=== PATIENT | male | born 1945 | race Caucasian/White ===

== ENCOUNTER 2019-06-27 13:50 | Observation (INO) | payer MEDICARE ==
[2019-06-27] MEDS ORDERED: SODIUM CHLORIDE 0.9% 500 ML 500 ML IV STA (14:18)
--- NOTE | 2019-06-27 14:29 | ED ---
General Adult HPI - General Chief complaint: Syncope Stated complaint: Weakness/sleepy Time Seen by Provider: 06/27/19 13:55 Source: patient, EMS, RN notes reviewed Mode of arrival: EMS Limitations: no limitations - History of Present Illness Initial comments: This is a 73-year-old male who presents emergency department today with his he has diabetes and high blood pressure. Patient also has a history of bradycardia and hypotension according to the . states he has not yet eaten today and it is 2:00 when the symptoms occurred. Patient became unresponsive while sitting and she called EMS. According to he never became alert and oriented prior to the private branch exchange service adviser taking him to the hospital. Currently she states that he is acting normal at his baseline. Patient states prior to passing out he did feel lightheaded but had no pain or difficulty breathing. Patient currently denies any symptoms whatsoever. He states he has not had any recent episodes of vomiting or diarrhea. He has not had any recent fever or any episodes of chest pain or difficulty breathing. - Related Data Home Medications Medication Instructions Recorded Confirmed Aspirin 325 mg PO DAILY 04/19/18 06/27/19 Atorvastatin [Lipitor] 40 mg PO HS 04/19/18 06/27/19 Carbidopa-Levodopa 25-100 mg 3 tab PO QID 04/19/18 06/27/19 [Sinemet 25-100] Celecoxib [CeleBREX] 200 mg PO BID 04/19/18 06/27/19 Cholecalciferol [Vitamin D3] 1,000 unit PO HS 04/19/18 06/27/19 DULoxetine HCL [Cymbalta] 30 mg PO HS 04/19/18 06/27/19 DULoxetine HCL [Cymbalta] 60 mg PO DAILY 04/19/18 06/27/19 Donepezil [Aricept] 5 mg PO HS 04/19/18 06/27/19 Glucosamine Hcl 1,500 mg PO HS 04/19/18 06/27/19 Levothyroxine Sodium 25 mcg PO DAILY 04/19/18 06/27/19 Lutein 20 mg PO DAILY 04/19/18 06/27/19 Midodrine HCl [ProAmatine] 5 mg PO DAILY 04/19/18 06/27/19 QUEtiapine [SEROquel] 25 mg PO HS 06/08/18 08/16/19 Ubidecarenone [Co Q-10] 100 mg PO DAILY 04/19/18 06/27/19 buPROPion [Wellbutrin] 37.5 mg PO DAILY 04/19/18 06/27/19 metFORMIN HCL [Glucophage] 500 mg PO BID 04/19/18 06/27/19 Amantadine HCl [Symmetrel] 100 mg PO TID 06/27/19 06/27/19 Allergies Allergy/AdvReac Type Severity Reaction Status Date / Time No Known Allergies Allergy Verified 06/27/19 14:56 Review of Systems ROS Statement: Those systems with pertinent positive or pertinent negative responses have been documented in the HPI. ROS Other: All systems not noted in ROS Statement are negative. Past Medical History Past Medical History: Diabetes Mellitus, Hyperlipidemia, Thyroid Disorder Additional Past Medical History / Comment(s): Lewie Body. Tardive dyskenesia History of Any Multi-Drug Resistant Organisms: None Reported Past Surgical History: Adenoidectomy, Appendectomy, Cholecystectomy, Coronary Bypass/CABG, Heart Catheterization, Orthopedic Surgery, Tonsillectomy Additional Past Surgical History / Comment(s): Triple bypass - 2010 Bilateral cataract surgery. Bilateral total knee replacement; Bilateral Ankle surgery. Thyroidectomy. Numerous sinus surgeries. Cervical fusion; Thoracic fusion; Lumbar laminectomy Past Psychological History: Anxiety, Depression Smoking Status: Never smoker Past Alcohol Use History: None Reported Past Drug Use History: None Reported General Exam - General Exam Comments Initial Comments: GENERAL: Patient is well-developed and well-nourished. Patient is nontoxic and well- hydrated and is in mild distress. ENT: Neck is soft and supple. No significant lymphadenopathy is noted. Oropharynx is clear. Moist mucous membranes. Neck has full range of motion without eliciting any pain. EYES: The sclera were anicteric and conjunctiva were pink and moist. Extraocular movements were intact and pupils were equal round and reactive to light. Eyelids were unremarkable. PULMONARY: Unlabored respirations. Good breath sounds bilaterally. No audible rales rhonchi or wheezing was noted. CARDIOVASCULAR: There is a regular rate and rhythm without any murmurs gallops or rubs. ABDOMEN: Soft and nontender with normal bowel sounds. SKIN: Skin is clear with no lesions or rashes and otherwise unremarkable. NEUROLOGIC: Patient is alert and oriented 3. Cranial nerves II through XII are grossly intact. Motor and sensory are also intact. Normal speech, volume and content. Symmetrical smile. MUSCULOSKELETAL: Normal extremities with adequate strength and full range of motion. LYMPHATICS: No significant lymphadenopathy is noted PSYCHIATRIC: Normal psychiatric evaluation. Limitations: no limitations General appearance: alert, in no apparent distress Head exam: Present: atraumatic, normocephalic, normal inspection Eye exam: Present: normal appearance, PERRL, EOMI. Absent: scleral icterus, conjunctival injection, periorbital swelling ENT exam: Present: normal exam, mucous membranes moist Neck exam: Present: normal inspection. Absent: tenderness, meningismus, lymphadenopathy Respiratory exam: Present: normal lung sounds bilaterally. Absent: respiratory distress, wheezes, rales, rhonchi, stridor Cardiovascular Exam: Present: regular rate, normal rhythm, normal heart sounds. Absent: systolic murmur, diastolic murmur, rubs, gallop, clicks GI/Abdominal exam: Present: soft, normal bowel sounds. Absent: distended, tenderness, guarding, rebound, rigid Extremities exam: Present: normal inspection, full ROM, normal capillary refill. Absent: tenderness, pedal edema, joint swelling, calf tenderness Back exam: Present: normal inspection Neurological exam: Present: alert, oriented X3, CN II-XII intact Psychiatric exam: Present: normal affect, normal mood Skin exam: Present: warm, dry, intact, normal color. Absent: rash Course Vital Signs 06/27/19 06/27/19 13:56 14:56 Temperature 99.1 F Pulse Rate 81 72 Respiratory 16 16 Rate Blood Pressure 116/69 128/72 O2 Sat by Pulse 94 L 97 Oximetry Medical Decision Making - Medical Decision Making EKG shows sinus rhythm with occasional PAC at 73 bpm OH interval is on a 44 QRS is 94 QT interval 384 QTC is 423. Patient's EKG shows some inverted T waves in V4 V5 and V6. These are new EKG changes when compared to an EKG from 2009 Recent was hypotensive when he arrived I did give the patient a fluid bolus. Patient's chest x-ray showed no acute abnormality. I spoke with some physicians he agreed to admit the patient admitted the patient. - Lab Data Result diagrams: 06/27/19 14:27 06/27/19 14:27 Lab Results 06/27/19 06/27/19 06/27/19 Range/Units 14:27 14:27 14:27 WBC 3.2 L (3.8-10.6) k/uL RBC 4.59 (4.30-5.90) m/uL Hgb 13.2 (13.0-17.5) gm/dL Hct 39.7 (39.0-53.0) % MCV 86.4 (80.0-100.0) fL MCH 28.7 (25.0-35.0) pg MCHC 33.2 (31.0-37.0) g/dL RDW 15.8 H (11.5-15.5) % Plt Count 125 L (150-450) k/uL Neutrophils % 85 % Lymphocytes % 6 % Monocytes % 5 % Eosinophils % 2 % Basophils % 0 % Neutrophils # 2.8 (1.3-7.7) k/uL Lymphocytes # 0.2 L (1.0-4.8) k/uL Monocytes # 0.2 (0-1.0) k/uL Eosinophils # 0.1 (0-0.7) k/uL Basophils # 0.0 (0-0.2) k/uL PT 9.9 (9.0-12.0) sec INR 0.9 (<1.2) APTT 23.2 (22.0-30.0) sec Sodium 134 L (137-145) mmol/L Potassium 4.4 (3.5-5.1) mmol/L Chloride 102 (98-107) mmol/L Carbon Dioxide 21 L (22-30) mmol/L Anion Gap 11 mmol/L BUN 23 H (9-20) mg/dL Creatinine 1.09 (0.66-1.25) mg/dL Est GFR (CKD-EPI)AfAm 76 (>60 ml/min/1.73 sqM) Est GFR (CKD-EPI)NonAf 66 (>60 ml/min/1.73 sqM) Glucose 182 H (74-99) mg/dL Calcium 8.9 (8.4-10.2) mg/dL Magnesium 1.6 (1.6-2.3) mg/dL Total Bilirubin 0.7 (0.2-1.3) mg/dL AST 143 H (17-59) U/L ALT 33 (21-72) U/L Alkaline Phosphatase 128 H (38-126) U/L Troponin I (0.000-0.034) ng/mL Total Protein 5.8 L (6.3-8.2) g/dL Albumin 3.4 L (3.5-5.0) g/dL 06/27/19 Range/Units 14:27 WBC (3.8-10.6) k/uL RBC (4.30-5.90) m/uL Hgb (13.0-17.5) gm/dL Hct (39.0-53.0) % MCV (80.0-100.0) fL MCH (25.0-35.0) pg MCHC (31.0-37.0) g/dL RDW (11.5-15.5) % Plt Count (150-450) k/uL Neutrophils % % Lymphocytes % % Monocytes % % Eosinophils % % Basophils % % Neutrophils # (1.3-7.7) k/uL Lymphocytes # (1.0-4.8) k/uL Monocytes # (0-1.0) k/uL Eosinophils # (0-0.7) k/uL Basophils # (0-0.2) k/uL PT (9.0-12.0) sec INR (<1.2) APTT (22.0-30.0) sec Sodium (137-145) mmol/L Potassium (3.5-5.1) mmol/L Chloride (98-107) mmol/L Carbon Dioxide (22-30) mmol/L Anion Gap mmol/L BUN (9-20) mg/dL Creatinine (0.66-1.25) mg/dL Est GFR (CKD-EPI)AfAm (>60 ml/min/1.73 sqM) Est GFR (CKD-EPI)NonAf (>60 ml/min/1.73 sqM) Glucose (74-99) mg/dL Calcium (8.4-10.2) mg/dL Magnesium (1.6-2.3) mg/dL Total Bilirubin (0.2-1.3) mg/dL AST (17-59) U/L ALT (21-72) U/L Alkaline Phosphatase (38-126) U/L Troponin I 0.013 (0.000-0.034) ng/mL Total Protein (6.3-8.2) g/dL Albumin (3.5-5.0) g/dL Disposition Clinical Impression: Syncope Disposition: ADMITTED IP TO THIS HOSP Referrals: Papi Noriega MD [Primary Care Provider] - 1-2 days Time of Disposition: 17:17
[2019-06-27 14:49] LABS: Basophils % (A) 0 %; Eosinophils # (A) 0.1 k/uL (0-0.7); Eosinophils % (A) 2 %; HCT 39.7 % (39.0-53.0); HGB 13.2 gm/dL (13.0-17.5); Lymphocytes # (A) 0.2 k/uL (1.0-4.8); Lymphocytes % (A) 6 %; MCH 28.7 pg (25.0-35.0); MCHC 33.2 g/dL (31.0-37.0); MCV 86.4 fL (80.0-100.0); Mean Platelet Volume 7.6; Monocytes # (A) 0.2 k/uL (0-1.0); Monocytes % (A) 5 %; Neutrophils # (A) 2.8 k/uL (1.3-7.7); Neutrophils % (A) 85 %; Platelet Count 125 k/uL (150-450); RBC 4.59 m/uL (4.30-5.90); RDW 15.8 % (11.5-15.5); WBC 3.2 k/uL (3.8-10.6)
[2019-06-27 14:58] LABS: INR 0.9 (<1.2); Partial Thromboplastin Time 23.2 sec (22.0-30.0); Prothrombin Time 9.9 sec (9.0-12.0)
[2019-06-27 15:04] LABS: Albumin 3.4 g/dL (3.5-5.0); Calcium 8.9 mg/dL (8.4-10.2); Magnesium 1.6 mg/dL (1.6-2.3); Potassium 4.4 mmol/L (3.5-5.1); Total Bilirubin 0.7 mg/dL (0.2-1.3); Total Protein 5.8 g/dL (6.3-8.2)
--- NOTE | 2019-06-27 15:17 | XR ---
EXAMINATION TYPE: XR chest 2V DATE OF EXAM: 06/27/2019 COMPARISON: Prior chest x-ray dated 09/23/2012 HISTORY: Chest pain and weakness TECHNIQUE: Frontal and lateral views of the chest are obtained. FINDINGS: There is no focal air space opacity, pleural effusion, or pneumothorax seen. The cardiac silhouette size is stable, may be accentuated by technique. The osseous structures are remarkable f or interval posterior thoracic fusion. Patient is post median sternotomy. Postop changes are noted to the cervical spine, right shoulder. There are overlying cardiac leads. IMPRESSION: No acute cardiopulmonary process.
[2019-06-27] MEDS ORDERED: SODIUM CHLORIDE 0.9% 1,000 ML IV ONE (17:18)
[2019-06-27] MEDS ORDERED: NALOXONE 0.4 MG/ML 1 ML VIAL IV PRN (18:20)
[2019-06-27] MEDS ORDERED: ACETAMINOPHEN TAB 325 MG TAB PO PRN (18:20)
[2019-06-27] MEDS ORDERED: ASPIRIN 325 MG TAB PO SCH (18:30)
--- NOTE | 2019-06-27 18:40 | P.HPIM ---
History of Present Illness H&P Date: 06/27/19 Chief Complaint: Syncope 73-year-old male who presents to the ER because according to him he did not take his meds yesterday and today he has been feeling weak and while trying to get out of bed around noon time he passed out. He states he had some blurred vision and lost consciousness for about 10-20 sec. Patient also has a history of bradycardia and hypotension and that is why he takes midodrine. He states he has those passing out events for the past 5 years and the midodrine is not helping much. states he has not yet eaten today. According to he never became alert and oriented prior to the leather staker taking him to the hospital. No chest pain or difficulty breathing. No focal weakness, no seizures. No N/V. No fevers. EKG in the ER was showing inverted Ts in V4 V5 and V6. Workup with CBC, BMP, trops CXR otherwise negative. Review of Systems Complete ROS performed. Pertinent positive per HPI, otherwise negative. Past Medical History Past Medical History: Diabetes Mellitus, Hyperlipidemia, Thyroid Disorder Additional Past Medical History / Comment(s): Lewie Body. Tardive dyskenesia History of Any Multi-Drug Resistant Organisms: None Reported Past Surgical History: Adenoidectomy, Appendectomy, Cholecystectomy, Coronary Bypass/CABG, Heart Catheterization, Orthopedic Surgery, Tonsillectomy Additional Past Surgical History / Comment(s): Triple bypass - 2010 Bilateral cataract surgery. Bilateral total knee replacement; Bilateral Ankle surgery. Thyroidectomy. Numerous sinus surgeries. Cervical fusion; Thoracic fusion; Lumbar laminectomy Past Psychological History: Anxiety, Depression Smoking Status: Never smoker Past Alcohol Use History: None Reported Past Drug Use History: None Reported Medications and Allergies Home Medications Medication Instructions Recorded Confirmed Type Aspirin 325 mg PO DAILY 04/19/18 06/27/19 History Atorvastatin [Lipitor] 40 mg PO HS 04/19/18 06/27/19 History Carbidopa-Levodopa 25-100 mg 3 tab PO QID 04/19/18 06/27/19 History [Sinemet 25-100] Celecoxib [CeleBREX] 200 mg PO BID 04/19/18 06/27/19 History Cholecalciferol [Vitamin D3] 1,000 unit PO HS 04/19/18 06/27/19 History DULoxetine HCL [Cymbalta] 30 mg PO HS 04/19/18 06/27/19 History DULoxetine HCL [Cymbalta] 60 mg PO DAILY 04/19/18 06/27/19 History Donepezil [Aricept] 5 mg PO HS 04/19/18 06/27/19 History Glucosamine Hcl 1,500 mg PO HS 04/19/18 06/27/19 History Levothyroxine Sodium 25 mcg PO DAILY 04/19/18 06/27/19 History Lutein 20 mg PO DAILY 04/19/18 06/27/19 History Midodrine HCl [ProAmatine] 5 mg PO DAILY 04/19/18 06/27/19 History QUEtiapine [SEROquel] 25 mg PO HS 04/19/18 06/27/19 History Ubidecarenone [Co Q-10] 100 mg PO DAILY 04/19/18 06/27/19 History buPROPion [Wellbutrin] 37.5 mg PO DAILY 04/19/18 06/27/19 History metFORMIN HCL [Glucophage] 500 mg PO BID 04/19/18 06/27/19 History Amantadine HCl [Symmetrel] 100 mg PO TID 06/27/19 06/27/19 History Allergies Allergy/AdvReac Type Severity Reaction Status Date / Time No Known Allergies Allergy Verified 06/27/19 14:56 Physical Exam Vitals: Vital Signs Temp Pulse Resp BP Pulse Ox 06/27/19 17:33 70 16 140/84 98 06/27/19 14:56 72 16 128/72 97 06/27/19 13:56 99.1 F 81 16 116/69 94 L Intake and Output 06/27/19 06/27/19 06/27/19 06:59 14:59 22:59 Other: Weight 81.647 kg Constitutional: No acute distress, conversant, pleasant Eyes:Anicteric sclerae, moist conjunctiva, no lid-lag, PERRLA, ENMT: Oropharynx clear, no erythema, exudates Neck: Supple, FROM, no masses, or JVD, No carotid bruits, No thyromegaly Lungs: Clear to auscultation, Clear to percussion, Normal respiratory effort, no accessory muscle use Cardiovascular: Heart regular in rate and rhythm, No murmurs, gallops, or rubs, No peripheral edema Abdominal: Soft, Nontender, no guarding, rebound or rigidity, Normoactive bowel sounds, No hepatomegaly, No splenomegaly, No palpable mass Skin: Normal temperature, tone, texture, turgor, no induration, No subcutaneous nodules, No rash, lesions, No ulcers Extremities: No digital cyanosis, No clubbing, Pedal pulses intact and sym metrical, Radial pulses intact and symmetrical, No calf tenderness Psychiatric: Alert and oriented to person, place and time, appropriate affect, intact judgement Neuro: Bilateral tremors. Muscles Strength 5/5 in all 4 extremities, Sensation to light touch grossly present throughout, Cranial nerves II-XII grossly intact, no focal sensory deficits Results CBC & Chem 7: 06/27/19 14:27 06/27/19 14:27 Labs: Abnormal Lab Results - Last 24 Hours (Table) 06/27/19 06/27/19 Range/Units 14:27 14:27 WBC 3.2 L (3.8-10.6) k/uL RDW 15.8 H (11.5-15.5) % Plt Count 125 L (150-450) k/uL Lymphocytes # 0.2 L (1.0-4.8) k/uL Sodium 134 L (137-145) mmol/L Carbon Dioxide 21 L (22-30) mmol/L BUN 23 H (9-20) mg/dL Glucose 182 H (74-99) mg/dL AST 143 H (17-59) U/L Alkaline Phosphatase 128 H (38-126) U/L Total Protein 5.8 L (6.3-8.2) g/dL Albumin 3.4 L (3.5-5.0) g/dL Assessment and Plan Plan: Syncope Likely due to Parkinson/autonomic dysfunction, R/O ID as he has T wave inversion in V4 V5 and V6 Has hx of bradycardia and hypotension likely due to autonomic dysfunction from Parkinson. Consult cardio and neuro, ?stress test ?brain imaging Admit to observation Neurochecks Cycle trops Chronic: DM-2 HTN CAD Hypothyroidism Hyperlipidemia All stable Resume meds
[2019-06-27] MEDS: buPROPion 75 MG TAB PO SCH (20:30)
[2019-06-27] MEDS: CARBIDOPA-LEVODOPA 25-100 MG 1 EACH TAB PO SCH (20:30)
[2019-06-27] MEDS: metFORMIN 500 MG TAB PO SCH (20:30)
[2019-06-27] MEDS: AMANTADINE HCL 100 MG CAP PO SCH (20:30)
[2019-06-27] MEDS: CHOLECALCIFEROL 1,000 UNIT TAB PO SCH (20:30)
[2019-06-27] MEDS: ATORVASTATIN 40 MG TAB PO SCH (20:30)
[2019-06-27] MEDS: DONEPEZIL 5 MG TAB PO SCH (20:30)
[2019-06-27] MEDS: DULoxetine HCL 30 MG CAPSULE.DR PO SCH (20:30)
[2019-06-27] MEDS: QUEtiapine 25 MG TAB PO SCH (20:30)
[2019-06-27 20:32] LABS: Glucose,Whole Blood 110 mg/dL (75-99)
[2019-06-27] MEDS ORDERED: GLUCOSAMINE HCL 1500 MG PO SCH (21:00)
[2019-06-28] MEDS: CARBIDOPA-LEVODOPA 25-100 MG 1 EACH TAB PO SCH ×5 (00:15→20:21)
[2019-06-28] MEDS: LEVOTHYROXINE 25 MCG TAB PO SCH (06:30)
[2019-06-28 06:36] LABS: Glucose,Whole Blood 85 mg/dL (75-99)
[2019-06-28 07:52] LABS: Basophils % (A) 0 %; Eosinophils # (A) 0.1 k/uL (0-0.7); Eosinophils % (A) 4 %; HCT 39.9 % (39.0-53.0); Lymphocytes # (A) 0.3 k/uL (1.0-4.8); Lymphocytes % (A) 11 %; MCHC 32.5 g/dL (31.0-37.0); MCV 86.1 fL (80.0-100.0); Mean Platelet Volume 6.9; Monocytes # (A) 0.2 k/uL (0-1.0); Monocytes % (A) 6 %; Neutrophils # (A) 2.3 k/uL (1.3-7.7); Neutrophils % (A) 77 %; Platelet Count 120 k/uL (150-450); RBC 4.63 m/uL (4.30-5.90)
[2019-06-28 08:01] LABS: Calcium 8.9 mg/dL (8.4-10.2); Magnesium 1.7 mg/dL (1.6-2.3); Phosphorus 3.5 mg/dL (2.5-4.5); Potassium 4.3 mmol/L (3.5-5.1)
[2019-06-28] MEDS ORDERED: NON-FORMULARY DRUG (Lutein [Lutein] 20 MG) PO SCH (09:00)
[2019-06-28] MEDS: ASPIRIN 81 MG PO SCH (10:00)
[2019-06-28] MEDS: AMANTADINE HCL 100 MG CAP PO SCH ×3 (10:00→22:11)
[2019-06-28] MEDS: metFORMIN 500 MG TAB PO SCH ×2 (10:00→17:10)
[2019-06-28] MEDS: DULoxetine HCL 60 MG CAPSULE.DR PO SCH (10:00)
[2019-06-28] MEDS: MELOXICAM 7.5 MG TAB PO SCH (10:01)
[2019-06-28] MEDS: buPROPion 75 MG TAB PO SCH (10:01)
[2019-06-28] MEDS: MIDODRINE 5 MG TAB PO SCH (10:03)
[2019-06-28 11:27] LABS: Glucose,Whole Blood 113 mg/dL (75-99)
--- NOTE | 2019-06-28 13:45 | P.CRDCN ---
History of Present Illness History of present illness: This is Yolanda Joe PA-C dictating a consult on this patient The patient was interviewed and examined by me as well as by Dr. Cody Case discussed with Dr. Cody and he agrees with the plan of care IMPRESSION / ASSESSMENT: Syncope, possibly due to hypotension Abnormal EKG with subtle ST changes the lateral precordial leads, troponin negative, likely secondary to hypotension, CAD status post CABG History of Hypertension, blood pressure has been stable since admission Diabetes Parkinson's disease PLAN: Resume Midodrin Monitor telemetry for bradycardia 2-D echo and Doppler study to assess cardiac structure and function Medical management for CAD, continue statin and aspirin, hold off on beta blockers at this time to avoid bradycardia and hypotension, no intervention planned at this time HPI Patient is a 73-year-old male with past medical history of hypertension, diabetes, CAD status post CABG,Parkinson's disease who presented with syncope. Patient was sitting in the passenger seat the car with his when he became unresponsive. His was not present at the bedside when I interviewed the patient was not able to get further details from her. Prior to that, he had a headache and felt a little dizzy and tired. He denies any preceding chest pain or palpitations. He hadn't eaten before this. He states this has happened many times to him in the past. He is on Midodrin for this but he was not taking it. On arrival to the emergency department his blood pressure was 116/69 and his pulse was 81. His EKG showed sinus mechanism with 0.[address] depressions and T- wave inversions V4 through V6. I do not have a prior EKG to compare to. Labs are significant for elevated AST and alkaline phosphatase. Troponins were negative. Patient seen and examined resting comfortably in bed. Has some lower abdominal pain. Denies any chest pain, shortness of breath, palpitations, dizziness. States he is hungry and would like to eat. ROS: No fevers, chills or rigors, no cough, phlegm or expectoration, no nausea, vomiting or diarrhea, no hematuria, dysuria, no musculoskeletal complaints, no strokes or seizures, no skin lesions. EXAMINATION: Temperature 97.9F, pulse 65, respirations 14, blood pressure 132/78, oxygen saturation 97% on room air Patient seen and examined resting in bed, in no acute distress Lungs are clear to auscultation bilaterally Heart is regular, soft systolic murmur appreciated No lower extremity edema Abdomen diffusely tender to palpation REVIEW OF LABS, ECG & MEDICAL DATA WBC 3.2, hemoglobin 13.2, platelets 125, potassium 4.4, BUN 23, creatinine 1.09, magnesium 1.6 AST elevated at 143, alkaline phosphatase elevated 128 Chest x-ray shows no acute cardiopulmonary process EKG shows sinus mechanism with 0.[address] depressions and T-wave inversions V4 through V6 Troponin normal 3 Past Medical History Past Medical History: Coronary Artery Disease (CAD), Diabetes Mellitus, Hyperlipidemia, Neurologic Disorder, Sleep Apnea/CPAP/BIPAP, Thyroid Disorder Additional Past Medical History / Comment(s): Lewie Body Tardive dyskenesia, parkinsons History of Any Multi-Drug Resistant Organisms: None Reported Past Surgical History: Adenoidectomy, Appendectomy, Cholecystectomy, Coronary Bypass/CABG, Heart Catheterization, Orthopedic Surgery, Tonsillectomy Additional Past Surgical History / Comment(s): Triple bypass - 2011, Bilateral cataract surgery. Bilateral total knee replacement; Bilateral Ankle surgery. Thyroidectomy. Numerous sinus surgeries. Cervical fusion; Thoracic fusion; Lumbar laminectomy Past Anesthesia/Blood Transfusion Reactions: No Reported Reaction Past Psychological History: Anxiety, Depression Smoking Status: Never smoker Past Alcohol Use History: None Reported Past Drug Use History: None Reported - Past Family History Mother Family Medical History: Dementia, Pneumonia Father Family Medical History: Cancer Additional Family Medical History / Comment(s): lung cancer Sister(s) Family Medical History: Cancer Additional Family Medical History / Comment(s): brain and lung cancer Son(s) Family Medical History: Coronary Artery Disease (CAD), Myocardial Infarction ([place]) Daughter(s) History Unknown: Yes Medications and Allergies Home Medications Medication Instructions Recorded Confirmed Type Aspirin 162 mg PO DAILY 04/19/18 06/27/19 History Atorvastatin [Lipitor] 40 mg PO HS 04/19/18 06/27/19 History Carbidopa-Levodopa 25-100 mg 3 tab PO QID 04/19/18 06/27/19 History [Sinemet 25-100] Celecoxib [CeleBREX] 200 mg PO BID 04/19/18 06/27/19 History Cholecalciferol [Vitamin D3] 1,000 unit PO HS 04/19/18 06/27/19 History DULoxetine HCL [Cymbalta] 30 mg PO HS 04/19/18 06/27/19 History DULoxetine HCL [Cymbalta] 60 mg PO DAILY 04/19/18 06/27/19 History Donepezil [Aricept] 5 mg PO DAILY 04/19/18 06/27/19 History Glucosamine Hcl 1,500 mg PO HS 04/19/18 06/27/19 History Levothyroxine Sodium 25 mcg PO DAILY 04/19/18 06/27/19 History Lutein 20 mg PO DAILY 04/19/18 06/27/19 History Midodrine HCl [ProAmatine] 5 mg PO DAILY 04/19/18 06/27/19 History QUEtiapine [SEROquel] 25 mg PO HS 04/19/18 06/27/19 History Ubidecarenone [Co Q-10] 100 mg PO DAILY 04/19/18 06/27/19 History buPROPion [Wellbutrin] 37.5 mg PO DAILY 04/19/18 06/27/19 History metFORMIN HCL [Glucophage] 500 mg PO BID 04/19/18 06/27/19 History Amantadine HCl [Symmetrel] 100 mg PO TID 06/27/19 06/27/19 History Allergies Allergy/AdvReac Type Severity Reaction Status Date / Time No Known Allergies Allergy Verified 06/27/19 19:19 Physical Exam Vitals: Vital Signs Temp Pulse Pulse Pulse Pulse Pulse Resp 06/28/19 04:00 97.9 F 65 14 06/27/19 23:22 97.9 F 85 89 80 06/27/19 18:41 98.0 F 73 15 06/27/19 17:33 70 16 06/27/19 14:56 72 16 06/27/19 13:56 99.1 F 81 16 BP BP BP BP BP Pulse Ox 06/28/19 04:00 132/78 97 06/27/19 23:22 112/62 103/63 153/70 06/27/19 18:41 148/77 97 06/27/19 17:33 140/84 98 06/27/19 14:56 128/72 97 06/27/19 13:56 116/69 94 L Intake and Output 06/27/19 06/28/19 06/28/19 22:59 06:59 14:59 Other: Voiding Method Diaper Diaper Incontinent Incontinent # Voids 1 Results 06/28/19 07:11 06/28/19 07:11 Cardiac Enzymes 06/27/19 06/27/19 06/27/19 Range/Units 14:27 14:27 17:38 AST 143 H (17-59) U/L Troponin I 0.013 0.014 (0.000-0.034) ng/mL 06/28/19 Range/Units 00:07 AST (17-59) U/L Troponin I 0.019 (0.000-0.034) ng/mL Coagulation 06/27/19 Range/Units 14:27 PT 9.9 (9.0-12.0) sec APTT 23.2 (22.0-30.0) sec CBC 06/27/19 Range/Units 14:27 WBC 3.2 L (3.8-10.6) k/uL RBC 4.59 (4.30-5.90) m/uL Hgb 13.2 (13.0-17.5) gm/dL Hct 39.7 (39.0-53.0) % Plt Count 125 L (150-450) k/uL Comprehensive Metabolic Panel 06/27/19 Range/Units 14:27 Sodium 134 L (137-145) mmol/L Potassium 4.4 (3.5-5.1) mmol/L Chloride 102 (98-107) mmol/L Carbon Dioxide 21 L (22-30) mmol/L BUN 23 H (9-20) mg/dL Creatinine 1.09 (0.66-1.25) mg/dL Glucose 182 H (74-99) mg/dL Calcium 8.9 (8.4-10.2) mg/dL AST 143 H (17-59) U/L ALT 33 (21-72) U/L Alkaline Phosphatase 128 H (38-126) U/L Total Protein 5.8 L (6.3-8.2) g/dL Albumin 3.4 L (3.5-5.0) g/dL Current Medications Generic Name Dose Route Start Last Admin Trade Name Freq PRN Reason Stop Dose Admin Acetaminophen 650 mg 06/27/19 18:20 06/27/19 20:29 Tylenol Tab PO 650 mg Q6HR PRN Administration Mild Pain or Fever > 100.5 Amantadine HCl 100 mg 06/27/19 22:00 06/27/19 20:30 Symmetrel PO 100 mg TID [facility] Administration Aspirin 325 mg 06/27/19 18:30 06/27/19 20:29 Aspirin PO 325 mg DAILY [facility] Administration Atorvastatin Calcium 40 mg 06/27/19 21:00 06/27/19 20:30 Lipitor PO 40 mg HS [facility] Administration Bupropion HCl 37.5 mg 06/27/19 18:30 06/27/19 20:30 Wellbutrin PO 37.5 mg DAILY [facility] Administration Carbidopa/Levodopa 3 each 06/27/19 18:30 06/28/19 00:15 Sinemet 25-100 PO 3 each QID [facility] Administration Cholecalciferol 1,000 unit 06/27/19 21:00 06/27/19 20:30 Vitamin D3 (25 Mcg = 1000 Iu) PO 1,000 unit HS [facility] Administration Donepezil HCl 5 mg 06/27/19 21:00 06/27/19 20:30 Aricept PO 5 mg HS [facility] Administration Duloxetine HCl 30 mg 06/27/19 21:00 06/27/19 20:30 Cymbalta PO 30 mg HS [facility] Administration Duloxetine HCl 60 mg 06/28/19 09:00 Cymbalta PO DAILY [facility] Levothyroxine Sodium 25 mcg 06/28/19 06:30 06/28/19 06:30 Synthroid PO 25 mcg DAILY@0630 [facility] Administration Meloxicam 15 mg 06/28/19 09:00 Mobic PO DAILY [facility] Metformin HCl 500 mg 06/27/19 21:00 06/27/19 20:30 Glucophage PO 500 mg BID-W/MEALS [facility] Administration Midodrine 5 mg 06/28/19 09:00 Proamatine PO DAILY [facility] Naloxone HCl 0.2 mg 06/27/19 18:20 Narcan IV Q2M PRN Opioid Reversal Quetiapine Fumarate 25 mg 06/27/19 21:00 06/27/19 20:30 Seroquel PO 25 mg HS [facility] Administration Intake and Output 06/27/19 06/28/19 06/28/19 22:59 06:59 14:59 Other: Voiding Method Diaper Diaper Incontinent Incontinent # Voids 1 06/27/19 14:27 06/27/19 14:27
[2019-06-28 16:33] LABS: Glucose,Whole Blood 83 mg/dL (75-99)
--- NOTE | 2019-06-28 18:05 | P.PN ---
Subjective Progress Note Date: 06/28/19 Principal diagnosis: Syncope Patient is not having any more episodes of dizziness or passing out. No chest pain or shortness of breath. According to nursing orthostatics tested positive yesterday but they seem to be okay today. Objective - Vital Signs Vital signs: Vital Signs Temp 98.3 F 06/28/19 16:00 Pulse 74 06/28/19 16:00 Resp 18 06/28/19 16:00 BP 157/85 06/28/19 16:00 Pulse Ox 98 06/28/19 16:00 Intake & Output 06/27/19 06/28/19 06/28/19 18:59 06:59 18:59 Weight 81.647 kg Other: Voiding Method Diaper Diaper Incontinent Incontinent # Voids 1 2 - Exam Constitutional: No acute distress, conversant, pleasant Eyes:Anicteric sclerae, moist conjunctiva, no lid-lag, PERRLA, ENMT: Oropharynx clear, no erythema, exudates Neck: Supple, FROM, no masses, or JVD, No carotid bruits, No thyromegaly Lungs: Clear to auscultation, Clear to percussion, Normal respiratory effort, no accessory muscle use Cardiovascular: Heart regular in rate and rhythm, No murmurs, gallops, or rubs, No peripheral edema Abdominal: Soft, Nontender, no guarding, rebound or rigidity, Normoactive bowel sounds, No hepatomegaly, No splenomegaly, No palpable mass Skin: Normal temperature, tone, texture, turgor, no induration, No subcutaneous nodules, No rash, lesions, No ulcers Extremities: No digital cyanosis, No clubbing, Pedal pulses intact and symmetrical, Radial pulses intact and symmetrical, No calf tenderness Psychiatric: Alert and oriented to person, place and time, appropriate affect, intact judgement Neuro: Bilateral tremors. Muscles Strength 5/5 in all 4 extremities, Sensation to light touch grossly present throughout, Cranial nerves II-XII grossly intact, no focal sensory deficits - Labs CBC & Chem 7: 06/28/19 07:11 06/28/19 07:11 Labs: Abnormal Lab Results - Last 24 Hours (Table) 06/27/19 06/28/19 06/28/19 Range/Units 20:30 07:11 11:17 WBC 3.0 L (3.8-10.6) k/uL Plt Count 120 L (150-450) k/uL Lymphocytes # 0.3 L (1.0-4.8) k/uL POC Glucose (mg/dL) 110 H 113 H (75-99) mg/dL Assessment and Plan Plan: Syncope Likely due to Parkinson/autonomic dysfunction, R/O HI as he has T wave inversion in V4 V5 and V6. Has hx of bradycardia and hypotension likely due to autonomic dysfunction from Parkinson. Patient seen by cardiology would like him to be on telemetry for tonight. Also ordered echo. Awaiting neurology evaluation Chronic: DM-2 HTN CAD Hypothyroidism Hyperlipidemia All stable Resume meds
[2019-06-28 19:44] LABS: Glucose,Whole Blood 95 mg/dL (75-99)
[2019-06-28] MEDS: CHOLECALCIFEROL 1,000 UNIT TAB PO SCH (20:21)
[2019-06-28] MEDS: DONEPEZIL 5 MG TAB PO SCH (20:21)
[2019-06-28] MEDS: QUEtiapine 25 MG TAB PO SCH (20:22)
[2019-06-28] MEDS: ATORVASTATIN 40 MG TAB PO SCH (20:22)
[2019-06-28] MEDS: DULoxetine HCL 30 MG CAPSULE.DR PO SCH (20:22)
[2019-06-29] MEDS: LEVOTHYROXINE 25 MCG TAB PO SCH (06:26)
[2019-06-29 06:51] LABS: Glucose,Whole Blood 111 mg/dL (75-99)
[2019-06-29 07:29] VITALS: RESP 18; TEMP 98.1
[2019-06-29] MEDS: DULoxetine HCL 60 MG CAPSULE.DR PO SCH (08:28)
[2019-06-29] MEDS: ASPIRIN 81 MG PO SCH (08:28)
[2019-06-29] MEDS: metFORMIN 500 MG TAB PO SCH (08:29)
[2019-06-29] MEDS: CARBIDOPA-LEVODOPA 25-100 MG 1 EACH TAB PO SCH ×2 (08:29→12:22)
[2019-06-29] MEDS: AMANTADINE HCL 100 MG CAP PO SCH (08:29)
[2019-06-29] MEDS: MELOXICAM 7.5 MG TAB PO SCH (08:29)
[2019-06-29] MEDS: MIDODRINE 5 MG TAB PO SCH (08:29)
[2019-06-29] MEDS: buPROPion 75 MG TAB PO SCH (08:30)
[2019-06-29 11:29] LABS: Glucose,Whole Blood 124 mg/dL (75-99)
[2019-06-29 11:53] VITALS: BP 153/84; PULSE 63
--- NOTE | 2019-06-29 13:43 | P.PN ---
Subjective This is Yolanda Joe PA-C dictating a progress note on this patient The patient was interviewed and examined by me as well as by Dr. Cody Case discussed with Dr. Cody and he agrees with the plan of care IMPRESSION / ASSESSMENT: Syncope, likely secondary to hypotension and dysautonomia, Blood pressure dropped from 167/82 down to126/78 from supine to standing, blood pressure has been stable and slightly elevated on Midodrine, CAD status post CABG History of Hypertension Diabetes Parkinson's disease PLAN: Continue Midodrin Echocardiogram has been done, awaiting results HPI/interval history Patient is a 73-year-old male with past medical history of hypertension, diabetes, CAD status post CABG,Parkinson's disease who presented with syncope. Orthostatic vital signs were positive. He was started on Midodrin and his blood pressure has been stable.. patient seen and examined resting comfortably in bed. States he is feeling much better today. Has been able to get up and walk around without any dizziness, lightheadedness or syncope. EXAMINATION Temperature 98.1F, pulse 63, respirations 18, blood pressure 153/81, oxygen saturation 92% on room air Patient seen and examined resting in bed, in no acute distress Lungs are clear to auscultation bilaterally, no wheezing rhonchi or crackles Heart is regular, normal S1-S2, soft systolic murmur appreciated No lower extremity edema REVIEW OF LABS, ECG Blood pressure dropped from 167/82 down to126/78 from supine to standing no significant bradycardia arrhythmias noted on telemetry Objective - Vital Signs Vital signs: Vital Signs Temp 98.1 F 06/29/19 11:50 Pulse 63 06/29/19 11:50 Resp 18 06/29/19 11:50 BP 153/84 06/29/19 11:50 Pulse Ox 92 L 06/29/19 11:50 Intake & Output 06/28/19 06/29/19 06/29/19 18:59 06:59 18:59 Other: Voiding Method Diaper Diaper Diaper Incontinent Incontinent Incontinent # Voids 2 1 - Labs CBC & Chem 7: 06/28/19 07:11 06/28/19 07:11 Labs: Abnormal Lab Results - Last 24 Hours (Table) 06/29/19 06/29/19 Range/Units 06:47 11:28 POC Glucose (mg/dL) 111 H 124 H (75-99) mg/dL
--- NOTE | 2019-06-29 14:31 | ECHOF ---
Referral Reason:syncope MEASUREMENTS -------- HEIGHT: 182.9 cm WEIGHT: 81.6 kg BP: IVSd: 1.3 cm (0.6 - 1.1) LVIDd: 4.2 cm (3.9 - 5.3) LVPWd: 1.7 cm (0.6 - 1.1) IVSs: 1.7 cm LVIDs: 2.1 cm LVPWs: 1.9 cm RVIDd: 3.0 cm (< 3.3) LAESV Index (A-L): 26.26 ml/m Ao Diam: 3.1 cm (2.0 - 3.7) LA Diam: 4.8 cm (2.7 - 3.8) AV Cusp: 2.1 cm (1.5 - 2.6) EPSS: 0.4 cm MV E Samuel: 0.67 m/s MV DecT: 224 ms MV A Samuel: 0.99 m/s MV E/A Ratio: 0.68 RAP: 5.00 mmHg RVSP: 19.00 mmHg MV EF SLOPE: 88.60 mm/s (70 - 150) MV EXCURSION: 17.70 mm (> 18.000) FINDINGS -------- Sinus rhythm. This was a technically adequate study. The left ventricular size is normal. There is moderate concentric left ventricular hypertrophy. O verall left ventricular systolic function is normal with, an EF between 55 - 60 %. The right ventricle is normal in size. Normal LA size by volume 22+/-6 ml/m2. The right atrial size is normal. Interatrial and interventricular septum intact. The aortic valve is trileaflet and appears structurally normal. The mitral valve is normal. Mild mitral regurgitation is present. Mild tricuspid regurgitation present. Right ventricular systolic pressure is normal at < 35 mmHg. There is no pulmonic regurgitation present. The aortic root size is normal. Normal inferior vena cava with normal inspiratory collapse consistent with estimated right atrial pre ssure of 5 mmHg. There is no pericardial effusion. CONCLUSIONS -------- 1. Sinus rhythm. 2. This was a technically adequate study. 3. The left ventricular size is normal. 4. There is moderate concentric left ventricular hypertrophy. 5. Overall left ventricular systolic function is normal with, an EF between 55 - 60 %. 6. The right ventricle is normal in size. 7. Normal LA size by volume 22+/-6 ml/m2. 8. The right atrial size is normal. 9. Interatrial and interventricular septum intact. 10. The aortic valve is trileaflet and appears structurally normal. 11. The mitral valve is normal. 12. Mild mitral regurgitation is present. 13. Mild tricuspid regurgitation present. 14. Right ventricular systolic pressure is normal at < 35 mmHg. 15. There is no pulmonic regurgitation present. 16. The aortic root size is normal. 17. Normal inferior vena cava with normal inspiratory collapse consistent with estimated right atrial pressure of 5 mmHg. 18. There is no pericardial effusion. CIVIL SERVICE CLERK: Bobbi Coleman RDCS
--- NOTE | 2019-06-29 14:58 | P.DS ---
Providers Date of admission: 06/27/19 17:36 Expected date of discharge: 06/29/19 Attending physician: Sole Wilder, DO Consults: 06/27/19 18:22 Consult Physician Routine Consulting Provider: Sher Larson Consult Reason/Comments: syncope Do you want consulting provider notified?: Yes 06/27/19 18:40 Consult Physician Routine Consulting Provider: Paty Gloria Consult Reason/Comments: syncope Do you want consulting provider notified?: Yes Primary care physician: Papi Jaffe [facility] Course: 73-year-old male who presents to the ER because according to him he did not take his meds and on the day of admission he has been feeling weak and while trying to get out of bed around noon time he passed out. He had some blurred vision and lost consciousness for about 10-20 sec. Patient also has a history of bradycardia and hypotension, due to autonomic dysfunction and that is why he takes midodrine. He states he has those passing out events for the past 5 years and the midodrine is not helping much. According to he never became alert and oriented prior to the stage setting painter apprentice taking him to the hospital. No chest pain or difficulty breathing. No focal weakness, no seizures. No N/V. No fevers. EKG in the ER was showing inverted Ts in V4 V5 and V6. Workup with CBC, BMP, trops CXR otherwise negative. Patient was admitted to observation. His orthostatics were positive on the day of admission but once he was started on midodrine his orthostatics normalized. He was seen by cardiology. Echocardiogram was done which came back okay. He was watched on telemetry which was negative for arrhythmias. He did not have any passing out episodes. He has an appointment with his neurologist in a couple of days from now. He was encouraged to keep that appointment. Today he will be discharged home in a stable condition. Plan - Discharge Summary Discharge Rx Participant: No New Discharge Prescriptions: Continue metFORMIN HCL [Glucophage] 500 mg PO BID buPROPion [Wellbutrin] 37.5 mg PO DAILY Ubidecarenone [Co Q-10] 100 mg PO DAILY QUEtiapine [SEROquel] 25 mg PO HS Midodrine HCl [ProAmatine] 5 mg PO DAILY Lutein 20 mg PO DAILY Levothyroxine Sodium 25 mcg PO DAILY Glucosamine Hcl 1,500 mg PO HS Donepezil [Aricept] 5 mg PO DAILY DULoxetine HCL [Cymbalta] 30 mg PO HS DULoxetine HCL [Cymbalta] 60 mg PO DAILY Cholecalciferol [Vitamin D3 (25 Mcg = 1000 Iu)] 1,000 unit PO HS Celecoxib [CeleBREX] 200 mg PO BID Carbidopa-Levodopa 25-100 mg [Sinemet 25-100 mg] 3 tab PO QID Atorvastatin [Lipitor] 40 mg PO HS Aspirin 162 mg PO DAILY Amantadine HCl [Symmetrel] 100 mg PO TID Discharge Medication List Aspirin 162 mg PO DAILY 04/19/18 [History] Atorvastatin [Lipitor] 40 mg PO HS 04/19/18 [History] Carbidopa-Levodopa 25-100 mg [Sinemet 25-100 mg] 3 tab PO QID 04/19/18 [History] Celecoxib [CeleBREX] 200 mg PO BID 04/19/18 [History] Cholecalciferol [Vitamin D3 (25 Mcg = 1000 Iu)] 1,000 unit PO HS 04/19/18 [History] DULoxetine HCL [Cymbalta] 30 mg PO HS 04/19/18 [History] DULoxetine HCL [Cymbalta] 60 mg PO DAILY 04/19/18 [History] Donepezil [Aricept] 5 mg PO DAILY 04/19/18 [History] Glucosamine Hcl 1,500 mg PO HS 04/19/18 [History] Levothyroxine Sodium 25 mcg PO DAILY 04/19/18 [History] Lutein 20 mg PO DAILY 04/19/18 [History] Midodrine HCl [ProAmatine] 5 mg PO DAILY 04/19/18 [History] QUEtiapine [SEROquel] 25 mg PO HS 04/19/18 [History] Ubidecarenone [Co Q-10] 100 mg PO DAILY 04/19/18 [History] buPROPion [Wellbutrin] 37.5 mg PO DAILY 04/19/18 [History] metFORMIN HCL [Glucophage] 500 mg PO BID 04/19/18 [History] Amantadine HCl [Symmetrel] 100 mg PO TID 06/27/19 [History] Follow up Appointment(s)/Referral(s): Papi Noriega MD [Primary Care Provider] - 1-2 days
== END 2019-06-29 15:23 | disposition home or self-care (01) ==
LOC: EC 13:50 → 1SOBS 17:36
PROVIDERS: ADMIT Internal Medicine; ATTEND Internal Medicine
DX: R55 Syncope and collapse (principal); E11.9 Type 2 diabetes mellitus without complications; E78.5 Hyperlipidemia, unspecified; F32.9 Major depressive disorder, single episode, unspecified; F41.9 Anxiety disorder, unspecified; G20 Parkinson's disease; G47.30 Sleep apnea, unspecified; I10 Essential (primary) hypertension; E03.9 Hypothyroidism, unspecified; I25.10 Atherosclerotic heart disease of native coronary artery without angina pectoris; Z98.890 Other specified postprocedural states; Z98.1 Arthrodesis status; Z90.49 Acquired absence of other specified parts of digestive tract; Z79.82 Long term (current) use of aspirin; Z79.84 Long term (current) use of oral hypoglycemic drugs; Z79.890 Hormone replacement therapy; Z79.899 Other long term (current) drug therapy; Z79.1 Long term (current) use of non-steroidal anti-inflammatories (NSAID); Z95.1 Presence of aortocoronary bypass graft; Z96.653 Presence of artificial knee joint, bilateral; Z82.49 Family history of ischemic heart disease and other diseases of the circulatory system; Z80.1 Family history of malignant neoplasm of trachea, bronchus and lung
CPT/HCPCS: 99285; 36415; 93005; 93306; 80053; 80048; 83735 ×2; 84100; 84484 ×2; 85025 ×2; 85610; 85730; 71046; G0378 ×3

== ENCOUNTER 2020-05-03 22:40 | Emergency (ER) | payer MEDICARE ==
[2020-05-03 22:58] VITALS: RESP 18; TEMP 98
--- NOTE | 2020-05-03 23:22 | ED ---
General Adult HPI - General Chief complaint: Urogenital Stated complaint: Poss Kidney Stones Time Seen by Provider: 05/03/20 22:59 Source: patient, family Mode of arrival: ambulatory Limitations: no limitations - History of Present Illness Initial comments: This patient is 74-year-old man who presents to be evaluated for bilateral groin pain. Patient states that it started around 8 PM. He describes as a stabbing, severe, and noticed that it was worse with attempting to flex the lower abdominal or groin muscles. The patient states that he did take a 10 mg hydrocodone which has helped somewhat. He denies any associated symptoms. Patient states that the pain is identical to previous kidney stone. He does follow with Dr. Bryan Spain, urologist out of [facility] system. Onset/Timin -: hour(s) Location: abdomen Radiation: non-radiation Quality: stabbing Consistency: intermittent Improves with: none Worsens with: other ("Muscle flexing") Associated Symptoms: denies other symptoms Treatments Prior to Arrival: none - Related Data Home Medications Medication Instructions Recorded Confirmed Atorvastatin [Lipitor] 40 mg PO HS 04/19/18 05/04/20 Carbidopa-Levodopa 25-100 mg 3 tab PO QID 04/19/18 05/04/20 [Sinemet 25-100 mg] Celecoxib [CeleBREX] 200 mg PO BID 04/19/18 05/04/20 DULoxetine HCL [Cymbalta] 30 mg PO HS 04/19/18 05/04/20 DULoxetine HCL [Cymbalta] 60 mg PO DAILY 04/19/18 05/04/20 Glucosamine Hcl 1,500 mg PO HS 04/19/18 05/04/20 Levothyroxine Sodium 25 mcg PO DAILY 04/19/18 05/04/20 QUEtiapine [SEROquel] 25 mg PO HS 04/19/18 05/04/20 buPROPion [Wellbutrin] 75 mg PO DAILY 04/19/18 05/04/20 metFORMIN HCL [Glucophage] 500 mg PO BID 04/19/18 05/04/20 Aspirin 81 mg PO DAILY 05/04/20 05/04/20 Donepezil [Aricept] 10 mg PO DAILY 05/04/20 05/04/20 Midodrine HCl [ProAmatine] 30 mg PO TID 05/04/20 05/04/20 Polyethylene Glycol 3350 [Clearlax] 17 gm PO DAILY 05/04/20 05/04/20 Tamsulosin [Flomax] 0.4 mg PO DAILY 05/04/20 05/04/20 oxyCODONE-APAP 10-325MG [Percocet 1 tablet PRN 05/04/20 10-325 mg] Allergies Allergy/AdvReac Type Severity Reaction Status Date / Time No Known Allergies Allergy Verified 05/03/20 22:58 Review of Systems ROS Statement: Those systems with pertinent positive or pertinent negative responses have been documented in the HPI. ROS Other: All systems not noted in ROS Statement are negative. Constitutional: Denies: fever, chills Respiratory: Denies: cough, dyspnea Cardiovascular: Denies: chest pain, palpitations Gastrointestinal: Reports: as per HPI, abdominal pain, vomiting (Chronic). Denies: nausea, diarrhea, constipation, melena, hematochezia Genitourinary: Denies: dysuria, hematuria, testicular pain, testicular mass Musculoskeletal: Denies: back pain Skin: Denies: rash Neurological: Denies: headache, weakness, numbness Past Medical History Past Medical History: Coronary Artery Disease (CAD), Diabetes Mellitus, Hyperlipidemia, Neurologic Disorder, Sleep Apnea/CPAP/BIPAP, Thyroid Disorder Additional Past Medical History / Comment(s): [place] [employer] Tardive dyskenesia, parkinsons, kidney stones History of Any Multi-Drug Resistant Organisms: None Reported Past Surgical History: Adenoidectomy, Appendectomy, Cholecystectomy, Coronary Bypass/CABG, Heart Catheterization, Orthopedic Surgery, Tonsillectomy Additional Past Surgical History / Comment(s): Triple bypass - 2011, Bilateral cataract surgery. Bilateral total knee replacement; Bilateral Ankle surgery. Thyroidectomy. Numerous sinus surgeries. Cervical fusion; Thoracic fusion; Lumbar laminectomy Past Anesthesia/Blood Transfusion Reactions: No Reported Reaction Past Psychological History: Anxiety, Depression Smoking Status: Never smoker Past Alcohol Use History: None Reported Past Drug Use History: None Reported - Past Family History Mother Family Medical History: Dementia, Pneumonia Father Family Medical History: Cancer Additional Family Medical History / Comment(s): lung cancer Sister(s) Family Medical History: Cancer Additional Family Medical History / Comment(s): brain and lung cancer Son(s) Family Medical History: Coronary Artery Disease (CAD), Myocardial Infarction ([place]) Daughter(s) History Unknown: Yes General Exam Limitations: no limitations General appearance: alert, in no apparent distress Head exam: Present: atraumatic, normocephalic Eye exam: Present: normal appearance. Absent: scleral icterus, conjunctival injection ENT exam: Present: normal oropharynx Neck exam: Present: normal inspection Respiratory exam: Present: normal lung sounds bilaterally. Absent: respiratory distress, wheezes, rales, rhonchi, stridor Cardiovascular Exam: Present: regular rate, normal rhythm, normal heart sounds. Absent: systolic murmur, diastolic murmur, rubs, gallop GI/Abdominal exam: Present: soft, normal bowel sounds. Absent: distended, tenderness, guarding, rebound, rigid, mass, pulsatile mass, hernia exam: Present: normal inspection, vertical testicular lie, circumcision. Absent: testicular tenderness, urethral discharge, scrotal swelling Extremities exam: Present: normal inspection, normal capillary refill. Absent: pedal edema, calf tenderness Back exam: Present: normal inspection. Absent: CVA tenderness (R), CVA tenderness (L) Neurological exam: Present: alert Psychiatric exam: Present: normal affect Skin exam: Present: warm, dry, intact, normal color. Absent: rash Course Vital Signs 05/03/20 05/04/20 05/04/20 22:53 00:16 01:05 Temperature 98 F Pulse Rate 65 60 62 Respiratory 18 18 18 Rate Blood Pressure 119/66 157/90 144/76 O2 Sat by Pulse 95 98 96 Oximetry Medical Decision Making - Lab Data Result diagrams: 05/03/20 23:37 05/03/20 23:37 Lab Results 05/03/20 05/03/20 05/03/20 Range/Units 23:11 23:37 23:37 WBC 6.5 (3.8-10.6) k/uL RBC 4.32 (4.30-5.90) m/uL Hgb 11.4 L (13.0-17.5) gm/dL Hct 36.0 L (39.0-53.0) % MCV 83.2 (80.0-100.0) fL MCH 26.5 (25.0-35.0) pg MCHC 31.8 (31.0-37.0) g/dL RDW 13.1 (11.5-15.5) % Plt Count 241 (150-450) k/uL Neutrophils % 71 % Lymphocytes % 15 % Monocytes % 6 % Eosinophils % 6 % Basophils % 1 % Neutrophils # 4.6 (1.3-7.7) k/uL Lymphocytes # 0.9 L (1.0-4.8) k/uL Monocytes # 0.4 (0-1.0) k/uL Eosinophils # 0.4 (0-0.7) k/uL Basophils # 0.0 (0-0.2) k/uL Sodium 136 L (137-145) mmol/L Potassium 4.8 (3.5-5.1) mmol/L Chloride 105 (98-107) mmol/L Carbon Dioxide 23 (22-30) mmol/L Anion Gap 8 mmol/L BUN 27 H (9-20) mg/dL Creatinine 1.21 (0.66-1.25) mg/dL Est GFR (CKD-EPI)AfAm 67 (>60 ml/min/1.73 sqM) Est GFR (CKD-EPI)NonAf 58 (>60 ml/min/1.73 sqM) Glucose 114 H (74-99) mg/dL Calcium 9.4 (8.4-10.2) mg/dL Total Bilirubin 0.5 (0.2-1.3) mg/dL AST 23 (17-59) U/L ALT 11 (4-49) U/L Alkaline Phosphatase 68 (38-126) U/L Total Protein 6.4 (6.3-8.2) g/dL Albumin 4.0 (3.5-5.0) g/dL Amylase 40 (30-110) U/L Lipase 143 (23-300) U/L Urine Color Yellow Urine Appearance Clear (Clear) Urine pH 5.0 (5.0-8.0) Ur Specific [place] 1.010 (1.001-1.035) Urine Protein Negative (Negative) Urine Glucose (UA) Negative (Negative) Urine Ketones 1+ H (Negative) Urine Blood Negative (Negative) Urine Nitrite Negative (Negative) Urine Bilirubin Negative (Negative) Urine Urobilinogen <2.0 (<2.0) mg/dL Ur Leukocyte Esterase Negative (Negative) Urine WBC 3 (0-5) /hpf Hyaline Casts 11 H (0-2) /lpf Urine Mucus Rare H (None) /hpf Disposition Clinical Impression: Kidney stone Disposition: HOME SELF-CARE Condition: Good Instructions (If sedation given, give patient instructions): Kidney Stones (ED) Is patient prescribed a controlled substance at d/c from ED?: No Referrals: Papi Noriega MD [Primary Care Provider] - 1-2 days
[2020-05-03 23:23] LABS: Hyaline Casts,Urine 11 /lpf (0-2); Mucus,Urine Rare /hpf; WBC,Urine 3 /hpf (0-5)
[2020-05-03 23:37] LABS: Appearance,Urine Clear (Clear); Bilirubin,Urine Negative (Negative); Blood,Urine Negative (Negative); Color,Urine Yellow; Glucose,Urine (UA) Negative (Negative); Ketones,Urine 1+ (Negative); Leukocyte Esterase,Urine Negative (Negative); Nitrite,Urine Negative (Negative); Protein,Urine Negative (Negative); Urobilinogen,Urine <2.0 mg/dL (<2.0)
[2020-05-03 23:44] LABS: Basophils % (A) 1 %; Eosinophils # (A) 0.4 k/uL (0-0.7); Eosinophils % (A) 6 %; HGB 11.4 gm/dL (13.0-17.5); Lymphocytes # (A) 0.9 k/uL (1.0-4.8); Lymphocytes % (A) 15 %; MCH 26.5 pg (25.0-35.0); MCHC 31.8 g/dL (31.0-37.0); MCV 83.2 fL (80.0-100.0); Mean Platelet Volume 8.3; Monocytes # (A) 0.4 k/uL (0-1.0); Monocytes % (A) 6 %; Neutrophils # (A) 4.6 k/uL (1.3-7.7); Neutrophils % (A) 71 %; Platelet Count 241 k/uL (150-450); RBC 4.32 m/uL (4.30-5.90); RDW 13.1 % (11.5-15.5); WBC 6.5 k/uL (3.8-10.6)
[2020-05-04 00:04] LABS: Calcium 9.4 mg/dL (8.4-10.2); Potassium 4.8 mmol/L (3.5-5.1); Total Bilirubin 0.5 mg/dL (0.2-1.3); Total Protein 6.4 g/dL (6.3-8.2)
--- NOTE | 2020-05-04 00:27 | CT ---
EXAMINATION TYPE: CT abdomen pelvis wo con DATE OF EXAM: 05/03/2020 COMPARISON: 08/08/2013 HISTORY: bilateral flank pain CT DLP: 734.2 mGycm Automated exposure control for dose reduction was used. Lung bases are clear of infiltrate. There is no pleural effusion. Heart size is fairly normal. Liver shows no focal defect. There are clips from cholecystectomy. Stomach appears normal. There are multip le small calcified splenic granulomata. There is no evidence of pancreatic mass. There is no adrenal mass. Kidneys show normal size. There are multiple bilateral renal calculi that m easure up to 5 mm. There is no hydronephrosis. Ureters are not dilated. There is however 2 small calc josé miguel in the lower right ureter close to the urinary bladder that measure up to 4 mm. There is no retro peritoneal adenopathy. Bladder distends smoothly. There is enlarged prostate that measures 5 cm. Ther e is mild urinary bladder wall thickening. There is no inguinal hernia. There is no free fluid in the pelvis. There is no mesenteric edema. There is no ascites or free air. There is no sign of a bowel obstructio n. Appendix not definitely seen. No sign of thickened appendix. There are a few sigmoid diverticula. The re is no evidence of diverticulitis. Lumbar vertebra have normal alignment. Disc spaces are fairly no rmal. There is no compression fracture. There is lower lumbar laminectomy defect. The bony pelvis nicholas ears intact. IMPRESSION: Multiple bilateral renal calculi. There are 2 small calculi in the distal right ureter without eviden ce of any significant obstruction. The right upper collecting system is only slightly increased in si ze compared to old CT scan of 08/08/2013. Sigmoid diverticulosis without diverticulitis.
[2020-05-04] MEDS ORDERED: TAMSULOSIN 0.4 MG CAP.ER.24H PO STA (00:43)
[2020-05-04 01:06] VITALS: BP 144/76; PULSE 62
[2020-05-04] MEDS ORDERED: KETOROLAC 30 MG/ML 1 ML VIAL IVP STA (01:37)
[2020-05-04] MEDS ORDERED: MORPHINE SULFATE 4 MG/ML SYRINGE IV STA (01:37)
== END 2020-05-04 01:55 | disposition home or self-care (01) ==
LOC: EC 22:40
DX: N20.0 Calculus of kidney (principal); I25.10 Atherosclerotic heart disease of native coronary artery without angina pectoris; E11.9 Type 2 diabetes mellitus without complications; E78.5 Hyperlipidemia, unspecified; E07.9 Disorder of thyroid, unspecified; G47.30 Sleep apnea, unspecified; F32.9 Major depressive disorder, single episode, unspecified; F41.9 Anxiety disorder, unspecified; Z79.82 Long term (current) use of aspirin; Z79.899 Other long term (current) drug therapy; Z79.890 Hormone replacement therapy; Z79.84 Long term (current) use of oral hypoglycemic drugs; Z95.5 Presence of coronary angioplasty implant and graft; Z95.1 Presence of aortocoronary bypass graft; Z96.653 Presence of artificial knee joint, bilateral; Z90.89 Acquired absence of other organs; Z90.49 Acquired absence of other specified parts of digestive tract; Z98.42 Cataract extraction status, left eye; Z98.41 Cataract extraction status, right eye; Z99.89 Dependence on other enabling machines and devices; Z98.1 Arthrodesis status
CPT/HCPCS: 36415; 51798; 74176; 80053; 81003; 82150; 83690; 85025; 96374; 96375; 99284

== ENCOUNTER 2020-05-16 17:01 | Observation (INO) | payer MEDICARE ==
[2020-05-16] MEDS ORDERED: SODIUM CHLORIDE 0.9% 1,000 ML IV STA ×2 (17:11)
[2020-05-16] MEDS ORDERED: SODIUM CHLORIDE 0.9% 500 ML 500 ML IV STA (17:11)
[2020-05-16] MEDS ORDERED: ONDANSETRON 4 MG/2 ML VIAL IVP STA (17:25)
[2020-05-16] MEDS ORDERED: PANTOPRAZOLE 40 MG/10 ML VIAL IVP STA (17:25)
[2020-05-16] MEDS ORDERED: diphenhydrAMINE 50 MG/ML 1 ML VIAL IVP STA (17:25)
[2020-05-16] MEDS ORDERED: METOCLOPRAMIDE 5 MG/ML 2 ML VIAL IVP STA (17:25)
--- NOTE | 2020-05-16 17:25 | ED ---
Weakness HPI - General Chief complaint: Nausea/Vomiting/Diarrhea Stated complaint: Vomitting Time Seen by Provider: 05/16/20 17:06 Source: patient, RN notes reviewed, old records reviewed Mode of arrival: ambulatory Limitations: no limitations - History of Present Illness Initial comments: This is a 74-year-old male DF for evaluation patient closely ER today presented for evaluation persistent nausea vomiting denying any certain abdominal pain currently. Patient suffers from Parkinson's, on multiple medications unable to keep his medications down at home. Denying fevers. Patient does have GI evaluations sit up from coming up but he states he states that appointment. He has still persistent pain and weakness MD Complaint: generalized weakness (Persistent nausea vomiting) -: days(s) Location: generalized Severity: mild Severity scale (1-10): 2 (L) Consistency: constant Improves with: none Worsens with: none Associated Symptoms: chest pain - Related Data Home Medications Medication Instructions Recorded Confirmed Atorvastatin [Lipitor] 40 mg PO HS 04/19/18 05/04/20 Carbidopa-Levodopa 25-100 mg 3 tab PO QID 04/19/18 05/04/20 [Sinemet 25-100 mg] Celecoxib [CeleBREX] 200 mg PO BID 04/19/18 05/04/20 DULoxetine HCL [Cymbalta] 30 mg PO HS 04/19/18 05/04/20 DULoxetine HCL [Cymbalta] 60 mg PO DAILY 04/19/18 05/04/20 Glucosamine Hcl 1,500 mg PO HS 04/19/18 05/04/20 Levothyroxine Sodium 25 mcg PO DAILY 04/19/18 05/04/20 QUEtiapine [SEROquel] 25 mg PO HS 04/19/18 05/04/20 buPROPion [Wellbutrin] 75 mg PO DAILY 04/19/18 05/04/20 metFORMIN HCL [Glucophage] 500 mg PO BID 04/19/18 05/04/20 Aspirin 81 mg PO DAILY 05/04/20 05/04/20 Donepezil [Aricept] 10 mg PO DAILY 05/04/20 05/04/20 Midodrine HCl [ProAmatine] 30 mg PO TID 05/04/20 05/04/20 Polyethylene Glycol 3350 [Clearlax] 17 gm PO DAILY 05/04/20 05/04/20 Tamsulosin [Flomax] 0.4 mg PO DAILY 05/04/20 05/04/20 oxyCODONE-APAP 10-325MG [Percocet 1 tablet PRN 05/04/20 10-325 mg] Allergies Allergy/AdvReac Type Severity Reaction Status Date / Time No Known Allergies Allergy Verified 05/16/20 17:06 Review of Systems ROS Statement: Those systems with pertinent positive or pertinent negative responses have been documented in the HPI. ROS Other: All systems not noted in ROS Statement are negative. Past Medical History Past Medical History: Coronary Artery Disease (CAD), Diabetes Mellitus, Hyperlipidemia, Neurologic Disorder, Sleep Apnea/CPAP/BIPAP, Thyroid Disorder Additional Past Medical History / Comment(s): [place] Body Tardive dyskenesia, parkinsons, kidney stones History of Any Multi-Drug Resistant Organisms: None Reported Past Surgical History: Adenoidectomy, Appendectomy, Cholecystectomy, Coronary Bypass/CABG, Heart Catheterization, Orthopedic Surgery, Tonsillectomy Additional Past Surgical History / Comment(s): Triple bypass - 2011, Bilateral cataract surgery. Bilateral total knee replacement; Bilateral Ankle surgery. Thyroidectomy. Numerous sinus surgeries. Cervical fusion; Thoracic fusion; Lumbar laminectomy Past Anesthesia/Blood Transfusion Reactions: No Reported Reaction Past Psychological History: Anxiety, Depression Smoking Status: Never smoker Past Alcohol Use History: None Reported Past Drug Use History: None Reported - Past Family History Mother Family Medical History: Dementia, Pneumonia Father Family Medical History: Cancer Additional Family Medical History / Comment(s): lung cancer Sister(s) Family Medical History: Cancer Additional Family Medical History / Comment(s): brain and lung cancer Son(s) Family Medical History: Coronary Artery Disease (CAD), Myocardial Infarction ([place]) Daughter(s) History Unknown: Yes General Exam Limitations: no limitations General appearance: alert, in no apparent distress Head exam: Present: atraumatic, normocephalic, normal inspection Eye exam: Present: normal appearance, PERRL, EOMI. Absent: scleral icterus, conjunctival injection, periorbital swelling ENT exam: Present: normal exam, mucous membranes moist Neck exam: Present: normal inspection. Absent: tenderness, meningismus, lymphadenopathy Respiratory exam: Present: normal lung sounds bilaterally. Absent: respiratory distress, wheezes, rales, rhonchi, stridor Cardiovascular Exam: Present: regular rate, normal rhythm, normal heart sounds. Absent: systolic murmur, diastolic murmur, rubs, gallop, clicks GI/Abdominal exam: Present: soft, normal bowel sounds. Absent: distended, tenderness, guarding, rebound, rigid Extremities exam: Present: normal inspection, full ROM, normal capillary refill. Absent: tenderness, pedal edema, joint swelling, calf tenderness Back exam: Present: normal inspection Neurological exam: Present: alert, oriented X3, CN II-XII intact Psychiatric exam: Present: normal affect, normal mood Skin exam: Present: warm, dry, intact, normal color. Absent: rash Course Vital Signs 05/16/20 17:02 Temperature 97.9 F Pulse Rate 70 Respiratory 18 Rate Blood Pressure 183/92 O2 Sat by Pulse 97 Oximetry - Reevaluation(s) Reevaluation #1: 05/16/20 18:04 Medical record is reviewed Reevaluation #2: 05/16/20 18:04 No new symptoms, improved Reevaluation #3: 05/16/20 18:04 Patient informed of results, doesn't patient patient sick Medical Decision Making - Medical Decision Making 74-year-old male DF for evaluation patient presents for evaluation persistent nausea vomiting probably related to Parkinson's. Will admit patient for symptom management barium swallow tomorrow evaluation by GI - Radiology Data Radiology results: report reviewed (Chest x-rays negative for acute disease), image reviewed Disposition Clinical Impression: Dehydration, Gastroenteritis, Nausea & vomiting, Parkinsons disease Disposition: ADMITTED IP TO THIS [facility] Condition: Fair Is patient prescribed a controlled substance at d/c from ED?: No Referrals: Papi Noriega MD [Primary Care Provider] - 1-2 days
[2020-05-16] MEDS ORDERED: MORPHINE SULFATE 4 MG/ML SYRINGE IVP PRN (18:07)
[2020-05-16] MEDS ORDERED: LORazepam 2 MG/ML INJ IV PRN (18:07)
--- NOTE | 2020-05-16 18:16 | XR ---
EXAMINATION TYPE: XR chest 2V DATE OF EXAM: 05/16/2020 COMPARISON: 06/27/2019 HISTORY: Weakness There is no heart failure nor confluent pneumonic infiltrate. Costophrenic angles are clear. There i s posterior fusion surgery in the mid thoracic spine. There are sternal wires. There is cervical spin e fusion surgery. IMPRESSION: No active cardiopulmonary disease. There is clearing of the minimal atelectasis left lung base compared to old exam..
[2020-05-16 18:31] LABS: Basophils % (A) 1 %; Eosinophils # (A) 0.1 k/uL (0-0.7); Eosinophils % (A) 2 %; HCT 40.7 % (39.0-53.0); HGB 13.5 gm/dL (13.0-17.5); Hypochromasia Slight; Lymphocytes # (A) 0.9 k/uL (1.0-4.8); Lymphocytes % (A) 15 %; MCH 27.5 pg (25.0-35.0); MCHC 33.3 g/dL (31.0-37.0); MCV 82.5 fL (80.0-100.0); Monocytes # (A) 0.3 k/uL (0-1.0); Monocytes % (A) 4 %; Neutrophils # (A) 4.7 k/uL (1.3-7.7); Neutrophils % (A) 77 %; Platelet Count 277 k/uL (150-450); RBC 4.93 m/uL (4.30-5.90); RDW 12.8 % (11.5-15.5); WBC 6.1 k/uL (3.8-10.6)
[2020-05-16 18:36] LABS: Appearance,Urine Clear (Clear); Bacteria,Urine Rare /hpf; Bilirubin,Urine Negative (Negative); Blood,Urine Negative (Negative); Color,Urine Yellow; Glucose,Urine (UA) Negative (Negative); Hyaline Casts,Urine 1 /lpf (0-2); Ketones,Urine 1+ (Negative); Leukocyte Esterase,Urine Negative (Negative); Mucus,Urine Few /hpf; Nitrite,Urine Negative (Negative); PH, Urine 7.5 (5.0-8.0); Protein,Urine 1+ (Negative); RBC,Urine <1 /hpf (0-5); Specific Gravity,Urine 1.023 (1.001-1.035); Squamous Epithelial Cell,Urine <1 /hpf (0-4); WBC,Urine 2 /hpf (0-5)
[2020-05-16 18:40] LABS: Albumin 5.3 g/dL (3.5-5.0); Calcium 10.5 mg/dL (8.4-10.2); Magnesium 1.9 mg/dL (1.6-2.3); Phosphorus 3.4 mg/dL (2.5-4.5); Potassium 4.3 mmol/L (3.5-5.1); Total Bilirubin 0.7 mg/dL (0.2-1.3); Total Protein 7.8 g/dL (6.3-8.2)
[2020-05-16 18:49] LABS: INR 0.9 (<1.2); Prothrombin Time 9.9 sec (9.0-12.0)
[2020-05-16 18:52] LABS: Partial Thromboplastin Time 19.8 sec (22.0-30.0)
[2020-05-16 19:55] LABS: Glucose,Whole Blood 93 mg/dL (75-99)
[2020-05-17 02:12] LABS: Glucose,Whole Blood 77 mg/dL (75-99)
[2020-05-17] MEDS: ONDANSETRON 4 MG/2 ML VIAL IVP PRN ×2 (02:21→15:23)
[2020-05-17] MEDS: DEXTROSE 5% IN WATER 1,000 ML IV SCH ×2 (02:22→13:21)
[2020-05-17 07:36] LABS: Glucose,Whole Blood 96 mg/dL (75-99)
[2020-05-17] MEDS ORDERED: PANTOPRAZOLE 40 MG/10 ML VIAL IVP SCH (09:00)
[2020-05-17] MEDS ORDERED: MIDODRINE 5 MG TAB PO PRN (10:45)
[2020-05-17] MEDS ORDERED: ENOXAPARIN 40 MG/0.4 ML SYRINGE SQ SCH (11:15)
[2020-05-17] MEDS: LEVOTHYROXINE 25 MCG TAB PO SCH (11:39)
[2020-05-17] MEDS: CARBIDOPA-LEVODOPA 25-100 MG 1 EACH TAB PO SCH ×3 (11:39→21:17)
[2020-05-17] MEDS: buPROPion 75 MG TAB PO SCH (11:39)
[2020-05-17] MEDS: ENOXAPARIN 40 MG/0.4 ML SYRINGE SQ SCH (11:39)
[2020-05-17] MEDS: DULoxetine HCL 60 MG CAPSULE.DR PO SCH (11:39)
[2020-05-17] MEDS: DONEPEZIL 10 MG TAB PO SCH (11:39)
[2020-05-17] MEDS: TAMSULOSIN 0.4 MG CAP.ER.24H PO SCH (11:40)
[2020-05-17 11:58] LABS: Glucose,Whole Blood 97 mg/dL (75-99)
[2020-05-17] MEDS: INSULIN ASPART (NovoLOG) 100 UNIT/ML VIAL SQ SCH ×3 (12:39→22:19)
[2020-05-17 14:13] VITALS: BMI 25.0
[2020-05-17] MEDS ORDERED: ACETAMINOPHEN TAB 325 MG TAB PO PRN (15:09)
[2020-05-17 17:09] LABS: Glucose,Whole Blood 166 mg/dL (75-99)
--- NOTE | 2020-05-17 17:40 | P.HPIM ---
History of Present Illness H&P Date: 05/17/20 Chief Complaint: Nausea vomiting History of presenting complaint: This is a very pleasant [address] Papi Noriega. Chronic stable medical conditions include coronary artery disease, diabetes, hyperlipidemia, Parkinson disorder, obstructive sleep apnea, hypothyroid, we body tardive dyskinesia in the past, kidney stones, coronary bypass. Patient has been out of state. Was having nausea vomiting intermittently since January. Variable time after eating food. Patient had seen GI in the office was scheduled to have a barium swallow. Also seen by speech therapist. Denies any abdominal pain. No fever or chills. No blood. Some worsening of Parkinson disease. Admitted for the same. Review of systems: GEN.: Tired EYES: None HEENT: None NECK: None RESPIRATORY: None CARDIOVASCULAR: None GASTROINTESTINAL: As above GENITOURINARY: None MUSCULOSKELETAL: Joint pains LYMPHATICS: None HEMATOLOGICAL: None PSYCHIATRY: None NEUROLOGICAL: Tremors Past medical history to include: Coronary artery disease, diabetes, hyperlipidemia, Parkinson disorder, obstruct dai sleep apnea, hypothyroid, we body tardive dyskinesia, kidney stones, coronary artery disease with a bypass in 2010, anxiety depression Social history: , no history of smoking or alcohol. Physical examination: VITAL SIGNS: 97.9, 70, 18, 147-77, 99% room air GENERAL: [BMI 25, sitting up in bed, with tremors. EYES: Pupils equal. Conjunctiva normal. HEENT: External appearance of nose and ears normal, oral cavity grossly normal. NECK: JVD not raised; masses not palpable. HEART: First and second heart sounds are normal; no edema. LUNGS: Respiratory rate normal; clear to auscultation. ABDOMEN: Soft, nontender, liver spleen not palpable, no masses palpable. PSYCH: Alert and oriented x3; mood and affect normal. NEUROLOGICAL: [Cranial nerves grossly intact; no facial asymmetry, resting tremor LYMPHATICS: No lymph nodes palpable in the axilla and neck INVESTIGATIONS, reviewed in the clinical context: White count 6.1 hemoglobin 13.5 platelets 277 potassium 4.3 creatinine 1.03 COVID 19 PCR-not detected EKG tracing personally reviewed by me-sinus rhythm heart rate 55 Chest x-ray film personally reviewed by me-nothing acute Assessment: -This is a patient who for last 3 months has been having episodes of intermittent nausea vomiting. No obvious duration to diet. Intermittent. No abdominal pain. No blood. Patient's with Parkinson's to have dysphagia. Is probably worsening of the same. Highly probable that patient's underlying presbyesophagus. Gastroparesis is also on the differential. We will do a barium swallow. May need EGD. -Coronary artery disease with a history of bypass -Diabetes mellitus type 2 -Hyperlipidemia -Idiopathic Parkinson disorder -Obstructive sleep apnea -Hypothyroid -BPH Plan: Home medications to continue. Patient be kept nothing by mouth for a modified barium swallow. We'll also have speech therapy see the patient. GI was c onsulted. Lovenox for DVT prophylaxis. IV fluids. Care was discussed with the patient question were answered. 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 Bilateral total knee replacement; Bilateral Ankle surgery. Thyroidectomy, hemrrohoidectomy. Numerous sinus surgeries. Cervical fusion; Th oracic fusion; Lumbar laminectomy Past Anesthesia/Blood Transfusion Reactions: No Reported Reaction Past Psychological History: Anxiety, Depression Smoking Status: Never smoker Past Alcohol Use History: None Reported Past Drug Use History: None Reported - Past Family History Mother Family Medical History: Dementia, Pneumonia Father Family Medical History: Cancer Additional Family Medical History / Comment(s): lung cancer Sister(s) Family Medical History: Cancer Additional Family Medical History / Comment(s): brain and lung cancer Son(s) Family Medical History: Coronary Artery Disease (CAD), Myocardial Infarction ([place]) Daughter(s) History Unknown: Yes Family Medical History: No Reported History Medications and Allergies Home Medications Medication Instructions Recorded Confirmed Type Atorvastatin [Lipitor] 40 mg PO HS 04/19/18 05/16/20 History Carbidopa-Levodopa 25-100 mg 3 tab PO QID 04/19/18 05/16/20 History [Sinemet 25-100 mg] Celecoxib [CeleBREX] 200 mg PO BID 04/19/18 05/16/20 History DULoxetine HCL [Cymbalta] 30 mg PO HS 04/19/18 05/16/20 History DULoxetine HCL [Cymbalta] 60 mg PO DAILY 04/19/18 05/16/20 History Levothyroxine Sodium 25 mcg PO DAILY 04/19/18 05/16/20 History QUEtiapine [SEROquel] 25 mg PO HS 04/19/18 05/16/20 History buPROPion [Wellbutrin] 75 mg PO DAILY 04/19/18 05/16/20 History metFORMIN HCL [Glucophage] 500 mg PO BID 04/19/18 05/16/20 History Donepezil [Aricept] 10 mg PO DAILY 05/04/20 05/16/20 History Midodrine HCl [ProAmatine] 20 - 30 mg PO TID PRN 05/04/20 05/16/20 History Polyethylene Glycol 3350 [Clearlax] 17 gm PO DAILY PRN 05/04/20 05/16/20 History Tamsulosin [Flomax] 0.4 mg PO DAILY 05/04/20 05/16/20 History Allergies Allergy/AdvReac Type Severity Reaction Status Date / Time No Known Allergies Allergy Verified 05/16/20 19:35 Physical Exam Vitals: Vital Signs Temp Pulse Pulse Resp BP BP Pulse Ox 05/17/20 05:00 98.0 F 53 L 12 142/65 97 05/16/20 19:51 97.9 F 60 18 159/76 98 05/16/20 19:18 64 20 147/77 99 05/16/20 19:05 64 20 147/77 99 05/16/20 18:05 64 20 99 05/16/20 17:05 20 05/16/20 17:02 97.9 F 70 18 183/92 97 Intake and Output 05/16/20 05/17/20 05/17/20 22:59 06:59 14:59 Intake Total 260 710 Balance 260 710 Intake: Intake, IV Titration 260 710 Amount Dextrose 5% in Water 1, 450 000 ml @ 75 mls/hr IV . [id number] [facility] Rx#:[id number] Sodium Chloride 0.9% 1, 260 260 000 ml @ 130 mls/hr IV . [id number] [facility] Rx#:[id number] Other: Voiding Method Toilet Toilet Urinal Urinal # Voids 1 2 Weight 79 kg Results CBC & Chem 7: 05/16/20 18:20 05/16/20 18:20 Labs: Abnormal Lab Results - Last 24 Hours (Table) 05/16/20 05/16/20 05/16/20 Range/Units 18:20 18:20 18:20 Lymphocytes # 0.9 L (1.0-4.8) k/uL APTT 19.8 L (22.0-30.0) sec Glucose (74-99) mg/dL Calcium (8.4-10.2) mg/dL Albumin (3.5-5.0) g/dL Urine Protein 1+ H (Negative) Urine Ketones 1+ H (Negative) Urine Bacteria Rare H (None) /hpf Urine Mucus Few H (None) /hpf 05/16/20 Range/Units 18:20 Lymphocytes # (1.0-4.8) k/uL APTT (22.0-30.0) sec Glucose 113 H (74-99) mg/dL Calcium 10.5 H (8.4-10.2) mg/dL Albumin 5.3 H (3.5-5.0) g/dL Urine Protein (Negative) Urine Ketones (Negative) Urine Bacteria (None) /hpf Urine Mucus (None) /hpf Thrombosis Risk Factor Assmnt - Choose All That Apply Each Risk Factor Represents 3 Points: Age 75 years or older Other congenital or acquired thrombophilia - If yes, enter type in comment: No Thrombosis Risk Factor Assessment Total Risk Factor Score: 3 Thrombosis Risk Factor Assessment Level: Moderate Risk
[2020-05-17] MEDS ORDERED: LIDOCAINE 1% (10MG/ML) FOR IV START INTRADERMA PRN (21:03)
[2020-05-17] MEDS: PANTOPRAZOLE 40 MG/10 ML VIAL IVP SCH (21:16)
[2020-05-17] MEDS: ATORVASTATIN 40 MG TAB PO SCH (21:17)
[2020-05-17] MEDS: QUEtiapine 25 MG TAB PO SCH (21:17)
[2020-05-17] MEDS: DULoxetine HCL 30 MG CAPSULE.DR PO SCH (21:18)
--- NOTE | 2020-05-17 21:53 | CONS ---
CONSULTATION DATE OF DICTATION: 05/17/2020 REASON FOR CONSULTATION: Nausea, vomiting and diarrhea. HISTORY OF PRESENT ILLNESS: The patient is a 74-year-old pleasant white male who came to the emergency room yesterday complaining of nausea, vomiting and occasional abdominal discomfort on and off for the last 6 months' duration. These episodes of emesis happen 3 or 4 times a week. He denies any heartburn, reports no prior history of peptic ulcer disease or recent NSAID use. Patient was diagnosed with Parkinson's disease 2 years ago and has been on Sinemet since then. He does not recall having any new medications that were started recently. PAST MEDICAL HISTORY: His past medical history is significant for coronary artery disease, diabetes mellitus, hypertension, hyperlipidemia, hypothyroidism, Parkinson's disease, kidney stones. PAST SURGICAL HISTORY: Adenoidectomy, appendectomy, cholecystectomy, CABG, cardiac catheterization, tonsillectomy, laminectomy. SOCIAL HISTORY: No smoking. No alcohol use. FAMILY HISTORY: Mother with dementia. Father with lung cancer. MEDICATIONS: Medications at home include Lipitor, Sinemet, Celebrex, Cymbalta, levothyroxine, Seroquel, Wellbutrin, Glucophage, aspirin, Aricept, ProAmatine, ClearLax, Flomax, Percocet. ALLERGIES: NO KNOWN DRUG ALLERGIES. REVIEW OF SYSTEMS: CARDIOPULMONARY: No chest pain or shortness of breath. GENITOURINARY: No dysuria or hematuria. MUSCULOSKELETAL: Unremarkable. SKIN: Unremarkable. ENDOCRINE: Unremarkable. PSYCHIATRIC: Unremarkable. NEUROLOGY: History of Parkinson's disease. CONSTITUTIONAL: No recent weight loss. No fever, chills, night sweats. PHYSICAL EXAMINATION: He appears comfortable. No apparent distress. VITAL SIGNS: Stable. Blood pressure 150/71, pulse rate 52, temperature 97.5. HEENT examination unremarkable. Conjunctivae pink. Sclerae anicteric. Oral cavity no lesions. NECK: No JVD or lymph node enlargement. CHEST: Clear to auscultation. HEART: Regular rate and rhythm. ABDOMEN: Soft. Bowel sounds are positive. No organomegaly. EXTREMITIES: No pedal edema. SKIN: No rashes. NEUROLOGIC: Alert and oriented x3. No focal deficits. LABS: Labs from today show WBC 6.1, hemoglobin 13.5, platelets normal. Basic metabolic panel is within normal limits. IMPRESSION: 1. Nausea and vomiting for the last 6 months' duration with no associated abdominal pain, most likely medication-related. Of course, upper GI pathology cannot be excluded, especially peptic ulcer disease. However, he denies any recent NSAID use. 2. History of Parkinson's disease. 3. History of diabetes mellitus. 4. History of hypertension and hyperlipidemia. RECOMMENDATIONS: 1. Start on Protonix 40 mg daily. 2. Antiemetics as needed. 3. Will proceed with an upper endoscopy tomorrow. I discussed with him risks, benefits and complications of the procedure, and he is agreeable to it. In the meantime, we will start him on clear liquid diet and advance as tolerated. Thank you for this consultation. AMANDA / QUIRINON: [id number] /
[2020-05-17 21:58] LABS: Glucose,Whole Blood 151 mg/dL (75-99)
[2020-05-18 01:50] LABS: Glucose,Whole Blood 121 mg/dL (75-99)
[2020-05-18] MEDS: LACTATED RINGERS 1,000 ML IV SCH (04:32)
[2020-05-18] MEDS: LEVOTHYROXINE 25 MCG TAB PO SCH (05:32)
[2020-05-18] MEDS: DEXTROSE 5% IN WATER 1,000 ML IV SCH (05:33)
[2020-05-18 07:07] LABS: Glucose,Whole Blood 113 mg/dL (75-99)
[2020-05-18] MEDS: INSULIN ASPART (NovoLOG) 100 UNIT/ML VIAL SQ SCH ×4 (07:08→21:36)
[2020-05-18] MEDS: PANTOPRAZOLE 40 MG/10 ML VIAL IVP SCH ×2 (07:43→21:26)
[2020-05-18] MEDS ORDERED: NAPROXEN 250 MG TAB PO STA (10:54)
[2020-05-18] MEDS ORDERED: CYCLOBENZAPRINE 10 MG TAB PO SCH (11:00)
[2020-05-18 12:21] LABS: Glucose,Whole Blood 133 mg/dL (75-99)
[2020-05-18] MEDS ORDERED: IV FLUID CONTINUATION 1,000 ML IV ONE (12:52)
--- NOTE | 2020-05-18 13:03 | P.PCN ---
Date of Procedure: 05/18/20 Procedure(s) Performed: BRIEF HISTORY: Patient is a 74-year-old, pleasant, white male admitted hospital with intermittent nausea vomiting and epigastric pain for the last 1 month duration.. PROCEDURE PERFORMED: EGD With biopsy. PREOPERATIVE DIAGNOSIS: Epigastric pain/nausea vomiting of one month duration. IV sedation per anesthesia. PROCEDURE: After informed consent was obtained, the patient was brought into the endoscopy unit. IV sedation was administered by Anesthesia under continuous monitoring. Initially the Olympus GIF-140 video endoscope was inserted into the mouth. Esophagus intubated without any difficulty. It was gradually advanced into the stomach and duodenum and carefully examined. The bulb and the second part of the duodenum appeared normal. Biopsies were done from the duodenum to rule out celiac disease. The scope at this time was withdrawn to the stomach, adequately insufflated with air, and upon careful examination, mucosa of the antrum, had mild gastritis and biopsies were done from this area. The body, cardia and the fundus appeared normal. The scope was then withdrawn into the esophagus. The GE junction was located at 39 cm from the incisors. The esophagus appeared normal. There were no erosions or ulcerations seen and the patient tolerated the procedure well. IMPRESSION: 1. Mild antral gastritis. 2. No evidence of esophagitis or peptic ulcer disease. RECOMMENDATIONS: The findings of this examination were discussed with the patient as well as her family. He was advised to follow with the biopsy results. In the meantime he'll continue with antiemetics and Protonix 40 mg daily. Advance diet as tolerated..
[2020-05-18] MEDS: ENOXAPARIN 40 MG/0.4 ML SYRINGE SQ SCH (15:39)
[2020-05-18] MEDS: CARBIDOPA-LEVODOPA 25-100 MG 1 EACH TAB PO SCH ×4 (15:40→21:25)
[2020-05-18] MEDS: DONEPEZIL 10 MG TAB PO SCH (15:40)
[2020-05-18] MEDS: DULoxetine HCL 60 MG CAPSULE.DR PO SCH (15:40)
[2020-05-18] MEDS: TAMSULOSIN 0.4 MG CAP.ER.24H PO SCH (15:40)
[2020-05-18] MEDS: buPROPion 75 MG TAB PO SCH (15:42)
[2020-05-18] MEDS ORDERED: NAPROXEN 250 MG TAB PO SCH (16:00)
[2020-05-18 17:20] LABS: Glucose,Whole Blood 112 mg/dL (75-99)
--- NOTE | 2020-05-18 19:35 | P.PN ---
Progress Note - Text Progress Note Date: 05/18/20 Chief Complaint: Nausea vomiting History of presenting complaint: This is a very pleasant [address] Papi Noriega. Chronic stable medical conditions include coronary artery disease, diabetes, hyperlipidemia, Parkinson disorder, obstructive sleep apnea, hypothyroid, we body tardive dyskinesia in the past, kidney stones, coronary bypass. [place] been [place] of [place]. Was having nausea vomiting intermittently since January. Variable time after eating food. Patient had seen GI in the office was scheduled to have a barium swallow. Also seen by speech therapist. Denies any abdominal pain. No fever or chills. No blood. Some worsening of Parkinson disease. Today-so the patient this morning. Nothing by mouth for procedure. Otherwise stable. Review of systems: Was done for constitutional, cardiovascular, GI, pulmonary. relevant finding as above Active Medications Acetaminophen (Tylenol Tab) 650 mg PO Q4HR PRN PRN Reason: Fever and/ or Pain Last Admin: 05/17/20 15:21 Dose: 650 mg Documented by: Atorvastatin Calcium (Lipitor) 40 mg PO [facility] Last Admin: 05/17/20 21:17 Dose: 40 mg Documented by: Bupropion HCl (Wellbutrin) 75 mg PO DAILY [facility] Last Admin: 05/18/20 15:42 Dose: 75 mg Documented by: Carbidopa/Levodopa (Sinemet 25-100) 3 each PO QID [facility] Last Admin: 05/18/20 17:52 Dose: 3 each Documented by: Donepezil HCl (Aricept) 10 mg PO DAILY [facility] Last Admin: 05/18/20 15:40 Dose: 10 mg Documented by: Duloxetine HCl (Cymbalta) 30 mg PO [facility] Last Admin: 05/17/20 21:18 Dose: 30 mg Documented by: Duloxetine HCl (Cymbalta) 60 mg PO DAILY [facility] Last Admin: 05/18/20 15:40 Dose: 60 mg Documented by: Enoxaparin Sodium (Lovenox) 40 mg SQ DAILY [facility] Last Admin: 05/18/20 15:39 Dose: 40 mg Documented by: Dextrose/Water (Dextrose 5%-Water Iv Soln) 1,000 mls @ 75 mls/hr IV .[id number] [facility] Last Admin: 05/18/20 05:33 Dose: Not Given Documented by: Lactated Ringer's (Lactated Ringers) 1,000 mls @ 20 mls/hr IV .Q24H [facility] Last Admin: 05/18/20 04:32 Dose: 20 mls/hr Documented by: Insulin Aspart (Novolog) 0 unit SQ ACHS [facility]; Protocol Last Admin: 05/18/20 17:31 Dose: Not Given Documented by: Levothyroxine Sodium (Synthroid) 25 mcg PO 0630 [facility] Last Admin: 05/18/20 05:32 Dose: 25 mcg Documented by: Lidocaine HCl (.Xylocaine 1% Inj (10mg/Ml) For Iv Start) 0.1 ml INTRADERMA PER PROTOCOL PRN PRN Reason: IV Start Lorazepam (Ativan) 1 mg IV Q4HR PRN PRN Reason: Anxiety Midodrine (Proamatine) 20 mg PO TID PRN PRN Reason: low blood pressure Ondansetron HCl (Zofran) 4 mg IVP Q6HR PRN PRN Reason: Nausea And Vomiting Last Admin: 05/17/20 15:23 Dose: 4 mg Documented by: Pantoprazole Sodium (Protonix) 40 mg IVP BID [facility] Last Admin: 05/18/20 07:43 Dose: 40 mg Documented by: Quetiapine Fumarate (Seroquel) 25 mg PO HS [facility] Last Admin: 05/17/20 21:17 Dose: 25 mg Documented by: Tamsulosin HCl (Flomax) 0.4 mg PO DAILY [facility] Last Admin: 05/18/20 15:40 Dose: 0.4 mg Documented by: Physical examination: VITAL SIGNS: 97.9, 58, 16, 135/72, 98% room air GENERAL: [BMI 25, sitting up in chair, tremors EYES: Pupils equal. Conjunctiva normal. HEENT: External appearance of nose and ears normal, oral cavity grossly normal. NECK: JVD not raised; masses not palpable. HEART: First and second heart sounds are normal; no edema. LUNGS: Respiratory rate normal; clear to auscultation. ABDOMEN: Soft, nontender, liver spleen not palpable, no masses palpable. PSYCH: Alert and oriented x3; mood and affect normal. NEUROLOGICAL: [Cranial nerves grossly intact; no facial asymmetry, resting tremor INVESTIGATIONS, reviewed in the clinical context: White count 6.1 hemoglobin 13.5 platelets 277 potassium 4.3 creatinine 1.03 COVID 19 PCR-not detected EKG tracing personally reviewed by me-sinus rhythm heart rate 55 Chest x-ray film personally reviewed by me-nothing acute Assessment: -This is a patient who for last 3 months has been having episodes of intermittent nausea vomiting. No obvious duration to diet. Intermittent. No abdominal pain. No blood. Patient's with Parkinson's to have dysphagia. Is probably worsening of the same. Highly probable that patient's underlying presbyesophagus. Gastroparesis is also on the differential. -Coronary artery disease with a history of bypass -Diabetes mellitus type 2 -Hyperlipidemia -Idiopathic Parkinson disorder -Obstructive sleep apnea -Hypothyroid -BPH Plan: -Later today patient underwent a EGD. Found to some gastritis. Diet is being resumed.
[2020-05-18 20:24] LABS: Glucose,Whole Blood 158 mg/dL (75-99)
[2020-05-18] MEDS: DULoxetine HCL 30 MG CAPSULE.DR PO SCH (21:26)
[2020-05-18] MEDS: ATORVASTATIN 40 MG TAB PO SCH (21:26)
[2020-05-18] MEDS: QUEtiapine 25 MG TAB PO SCH (21:27)
[2020-05-19] MEDS: DEXTROSE 5% IN WATER 1,000 ML IV SCH ×2 (00:52→07:14)
[2020-05-19 01:54] LABS: Glucose,Whole Blood 125 mg/dL (75-99)
[2020-05-19] MEDS: LACTATED RINGERS 1,000 ML IV SCH (03:17)
[2020-05-19] MEDS: LEVOTHYROXINE 25 MCG TAB PO SCH (06:12)
[2020-05-19 07:00] LABS: Glucose,Whole Blood 110 mg/dL (75-99)
[2020-05-19] MEDS: INSULIN ASPART (NovoLOG) 100 UNIT/ML VIAL SQ SCH ×2 (07:14→12:53)
[2020-05-19] MEDS: ENOXAPARIN 40 MG/0.4 ML SYRINGE SQ SCH (08:04)
[2020-05-19] MEDS: CARBIDOPA-LEVODOPA 25-100 MG 1 EACH TAB PO SCH ×2 (08:04→12:53)
[2020-05-19] MEDS: DULoxetine HCL 60 MG CAPSULE.DR PO SCH (08:04)
[2020-05-19] MEDS: buPROPion 75 MG TAB PO SCH (08:05)
[2020-05-19] MEDS: DONEPEZIL 10 MG TAB PO SCH (08:05)
[2020-05-19] MEDS: TAMSULOSIN 0.4 MG CAP.ER.24H PO SCH (08:05)
[2020-05-19] MEDS: PANTOPRAZOLE 40 MG/10 ML VIAL IVP SCH (08:05)
[2020-05-19 12:41] LABS: Glucose,Whole Blood 138 mg/dL (75-99)
--- NOTE | 2020-05-19 23:52 | P.DS ---
Providers Date of admission: 05/16/20 18:50 Expected date of discharge: 05/19/20 Attending physician: Stephan Yang Consults: 05/16/20 18:07 Consult Physician Routine Consulting Provider: Rehan Don Consult Reason/Comments: alessandra Do you want consulting provider notified?: Yes Primary care physician: Papi Noriega [facility] Course: Chief Complaint: Nausea vomiting History of presenting complaint: This is a very pleasant [address] Papi Noriega. Chronic stable medical conditions include coronary artery disease, diabetes, hyperlipidemia, Parkinson disorder, obstructive sleep apnea, hypothyroid, we body tardive dyskinesia in the past, kidney stones, coronary bypass. Patient has been out of state. Was having nausea vomiting intermittently since January. Variable time after eating food. Patient had seen GI in the office was scheduled to have a barium swallow. Also seen by speech therapist. Denies any abdominal pain. No fever or chills. No blood. Some worsening of Parkinson disease. EGD showed some gastritis. Patient advised on maneuvers like sitting up and eating, not lying down after eating. Doing much better by the time of discharge. Oral intake much improved. Discussed with the patient. Started on PPI. Discussion and discharge planning more than 35 minutes Consultation: Dr. Louie Paredes from GI Physical examination: VITAL SIGNS: 97, 62, 16, 122/62, 96% room air GENERAL: Sitting up, comfortable EYES: Pupils equal. Conjunctiva normal. HEENT: External appearance of nose and ears normal, oral cavity grossly normal. NECK: JVD not raised; masses not palpable. HEART: First and second heart sounds are normal; no edema. LUNGS: Respiratory rate normal; clear to auscultation. ABDOMEN: Soft, nontender, liver spleen not palpable, no masses palpable. PSYCH: Alert and oriented x3; mood and affect normal. NEUROLOGICAL: [Cranial nerves grossly intact; no facial asymmetry, resting tremor INVESTIGATIONS, reviewed in the clinical context: White count 6.1 hemoglobin 13.5 platelets 277 potassium 4.3 creatinine 1.03 COVID 19 PCR-not detected EKG tracing personally reviewed by me-sinus rhythm heart rate 55 Chest x-ray film personally reviewed by me-nothing acute Assessment: -Intermittent dysphagia likely from underlying Parkinson's -Coronary artery disease with a history of bypass -Diabetes mellitus type 2 -Hyperlipidemia -Idiopathic Parkinson disorder -Obstructive sleep apnea -Hypothyroid -BPH -Chronic gastritis Disposition: Home Patient Condition at Discharge: Stable Plan - Discharge Summary Discharge Rx Participant: No New Discharge Prescriptions: New Omeprazole [PriLOSEC] 20 mg PO AC-BID #60 cap Continue metFORMIN HCL [Glucophage] 500 mg PO BID buPROPion [Wellbutrin] 75 mg PO DAILY QUEtiapine [SEROquel] 25 mg PO HS Levothyroxine Sodium 25 mcg PO DAILY DULoxetine HCL [Cymbalta] 30 mg PO HS DULoxetine HCL [Cymbalta] 60 mg PO DAILY Carbidopa-Levodopa 25-100 mg [Sinemet 25-100 mg] 3 tab PO QID Atorvastatin [Lipitor] 40 mg PO HS Donepezil [Aricept] 10 mg PO DAILY Midodrine HCl [ProAmatine] 20 - 30 mg PO TID PRN PRN Reason: low blood pressure Tamsulosin [Flomax] 0.4 mg PO DAILY Polyethylene Glycol 3350 [Clearlax] 17 gm PO DAILY PRN PRN Reason: Constipation Discontinued Celecoxib [CeleBREX] 200 mg PO BID Discharge Medication List Atorvastatin [Lipitor] 40 mg PO HS 04/19/18 [History] Carbidopa-Levodopa 25-100 mg [Sinemet 25-100 mg] 3 tab PO QID 04/19/18 [History] DULoxetine HCL [Cymbalta] 30 mg PO HS 04/19/18 [History] DULoxetine HCL [Cymbalta] 60 mg PO DAILY 04/19/18 [History] Levothyroxine Sodium 25 mcg PO DAILY 04/19/18 [History] QUEtiapine [SEROquel] 25 mg PO HS 04/19/18 [History] buPROPion [Wellbutrin] 75 mg PO DAILY 04/19/18 [History] metFORMIN HCL [Glucophage] 500 mg PO BID 04/19/18 [History] Donepezil [Aricept] 10 mg PO DAILY 05/04/20 [History] Midodrine HCl [ProAmatine] 20 - 30 mg PO TID PRN 05/04/20 [History] Polyethylene Glycol 3350 [Clearlax] 17 gm PO DAILY PRN 05/04/20 [History] Tamsulosin [Flomax] 0.4 mg PO DAILY 05/04/20 [History] Omeprazole [PriLOSEC] 20 mg PO AC-BID #60 cap 05/19/20 [Rx] Follow up Appointment(s)/Referral(s): Papi Noriega MD [Primary Care Provider] - 05/26/20 12:45 pm Nilam Paredes MD [STAFF PHYSICIAN] - 06/09/20 1:00 pm Patient Instructions/Handouts: Omeprazole (By mouth), Gastritis (DC) Discharge Disposition: HOME SELF-CARE
[2020-05-21 07:36] VITALS: BP 122/62; PULSE 62; RESP 16; TEMP 97
== END 2020-05-19 16:20 | disposition home or self-care (01) ==
LOC: EC 17:01 → 5NMEDONC 18:50
PROVIDERS: ADMIT Hospitalist; ATTEND Hospitalist
DX: R11.2 Nausea with vomiting, unspecified (principal); G20 Parkinson's disease; K29.50 Unspecified chronic gastritis without bleeding; E11.9 Type 2 diabetes mellitus without complications; E78.5 Hyperlipidemia, unspecified; E86.0 Dehydration; E89.0 Postprocedural hypothyroidism; F32.9 Major depressive disorder, single episode, unspecified; F41.9 Anxiety disorder, unspecified; G47.33 Obstructive sleep apnea (adult) (pediatric); I10 Essential (primary) hypertension; I25.10 Atherosclerotic heart disease of native coronary artery without angina pectoris; N40.0 Benign prostatic hyperplasia without lower urinary tract symptoms; R13.10 Dysphagia, unspecified; Z79.1 Long term (current) use of non-steroidal anti-inflammatories (NSAID); Z79.82 Long term (current) use of aspirin; Z79.84 Long term (current) use of oral hypoglycemic drugs; Z03.818 Encounter for observation for suspected exposure to other biological agents ruled out; Z79.890 Hormone replacement therapy; Z79.899 Other long term (current) drug therapy; Z80.1 Family history of malignant neoplasm of trachea, bronchus and lung; Z82.49 Family history of ischemic heart disease and other diseases of the circulatory system; Z87.442 Personal history of urinary calculi; Z95.1 Presence of aortocoronary bypass graft; Z96.653 Presence of artificial knee joint, bilateral; Z98.1 Arthrodesis status
CPT/HCPCS: 96376; 96361 ×3; 96372; 96375 ×2; 96374; 99285; 36415; 93005; 97530; 97162; 97535 ×2; 97166; 92610; 88305; 83880; 80053; 83605; 83735; 84100; 84484; 85025; 85610; 85730; 81001; 71046; 43239; G0378 ×3; U0003; J2270; J1200; J2765; J2405 ×2; J1650 ×3; C9113 ×4

== ENCOUNTER → 2020-05-26 | Outpatient (CLI) | payer MEDICARE ==
--- NOTE | 2020-05-26 10:02 | CT ---
EXAMINATION TYPE: CT abdomen pelvis wo con DATE OF EXAM: 05/26/2020 COMPARISON: Prior CT 05/03/2020 HISTORY: Abdominal pain CT DLP: 429.7 mGycm Automated exposure control for dose reduction was used. TECHNIQUE: Helical acquisition of images from the lung bases through the pelvis. FINDINGS: Coronary artery calcifications are present lack of intravenous contrast, sensitivity. Patie nt is post median sternotomy. LUNG BASES: No significant abnormality is appreciated. AORTA: No significant abnormality is appreciated. LIVER/GB: No significant interval change is appreciated, patient is post cholecystectomy. PANCREAS: No significant abnormality is seen. SPLEEN: Calcifications consistent with old granulomatous disease. ADRENALS: No significant abnormality is seen. KIDNEYS: Right kidney posterior midpole calyx shows a punctate calcification as on prior, hydronephro sis has resolved, distal right ureteral calculi are again noted, multiple left-sided nonobstructive c alculi are again seen. There is proximal left ureteral calculus present measuring approximately 4 mm. REPRODUCTIVE ORGANS: There is associated calcification, prostate is enlarged. URINARY BLADDER: There is a thickened wall. There may be chronic bladder outlet obstruction change. BOWEL: Duodenal diverticulum is noted to have the pancreas. Diverticular change noted in sigmoid col on00. FREE AIR: No Free Air is visible. ASCITES: None visible. PELVIC ADENOPATHY: None visualized. RETROPERITONEAL ADENOPATHY: No Retroperitoneal Adenopathy visible. OSSEOUS STRUCTURES: Postop changes are noted in the lumbar spine, there are multilevel facet arthrop athy changes, degenerative disc changes. IMPRESSION: DISTAL RIGHT URETERAL CALCULI PERSIST, THERE IS BILATERAL NEPHROLITHIASIS. PROXIMAL LEFT URETERAL DANIS CULUS WITHOUT SIGNIFICANT HYDRONEPHROSIS.
== END | disposition home or self-care (01) ==
LOC: RADCTMAIN 09:09
PROVIDERS: ATTEND Family Medicine
DX: N20.0 Calculus of kidney (principal)
CPT/HCPCS: 74176

== ENCOUNTER 2020-05-28 08:21 | Emergency (ER) | payer MEDICARE ==
[2020-05-28 08:27] VITALS: TEMP 98
[2020-05-28] MEDS ORDERED: SODIUM CHLORIDE 0.9% 500 ML 500 ML IV STA (08:37)
[2020-05-28] MEDS ORDERED: KETOROLAC 30 MG/ML 1 ML VIAL IVP STA (08:37)
[2020-05-28] MEDS ORDERED: SODIUM CHLORIDE 0.9% 1,000 ML IV STA (08:37)
--- NOTE | 2020-05-28 08:42 | ED ---
Abdominal Pain HPI - General Chief Complaint: Abdominal Pain Stated Complaint: pancreatitis Time Seen by Provider: 05/28/20 08:27 Source: patient, RN notes reviewed Mode of arrival: ambulatory Limitations: no limitations - History of Present Illness Initial Comments: This a 74-year-old male presents emergency department she went abdominal pain. Patient states he had a recent hospitalization for abdominal pain nausea vomiting. Patient has been followed outpatient by his PCP with further testing including ultrasound, CT of abdomen and pelvis. Patient does have known kidney stones along with recently been constipated severely from his Zofran days takes every 8 hours. Patient states that his PCP sent him in because he had elevated amylase and lipase levels. Patient denies any fevers or chills he states that he still nauseated, dry heaving. He states he had decreased oral intake. Patient denies fever, chills, chest pain or shortness of breath. Patient has not taken any recent for his discomfort patient had a prior cholecystectomy, appendectomy he denies any dysuria no hematuria. He states pain was very intense lower abdomen and radiates to his right flank last night. - Related Data Home Medications Medication Instructions Recorded Confirmed Atorvastatin [Lipitor] 40 mg PO HS 04/19/18 05/28/20 Carbidopa-Levodopa 25-100 mg 3 tab PO QID 04/19/18 05/28/20 [Sinemet 25-100 mg] DULoxetine HCL [Cymbalta] 30 mg PO HS 04/19/18 05/28/20 DULoxetine HCL [Cymbalta] 60 mg PO DAILY 04/19/18 05/28/20 Levothyroxine Sodium 25 mcg PO DAILY 04/19/18 05/28/20 QUEtiapine [SEROquel] 25 mg PO HS 04/19/18 05/28/20 buPROPion [Wellbutrin] 75 mg PO DAILY 04/19/18 05/28/20 metFORMIN HCL [Glucophage] 500 mg PO BID 04/19/18 05/28/20 Donepezil [Aricept] 10 mg PO DAILY 05/04/20 05/28/20 Midodrine HCl [ProAmatine] 20 mg PO TID PRN 05/04/20 05/28/20 Polyethylene Glycol 3350 [Clearlax] 17 gm PO DAILY PRN 05/04/20 05/28/20 Tamsulosin [Flomax] 0.4 mg PO DAILY 05/04/20 05/28/20 Neupro Patch 1 patch TOPICAL HS MDD 2MG/24HR 05/28/20 05/28/20 PATCH Ondansetron Odt [Zofran Odt] 8 mg PO Q8HR 05/28/20 05/28/20 Previous Rx's Medication Instructions Recorded Omeprazole [PriLOSEC] 20 mg PO AC-BID #60 cap 05/19/20 Metoclopramide [Reglan] 10 mg PO TID PRN #18 tab 05/28/20 Allergies Allergy/AdvReac Type Severity Reaction Status Date / Time No Known Allergies Allergy Verified 05/28/20 09:28 Review of Systems ROS Statement: Those systems with pertinent positive or pertinent negative responses have been documented in the HPI. ROS Other: All systems not noted in ROS Statement are negative. 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 Bilateral total knee replacement; Bilateral Ankle surgery. Thyroidectomy, hemrrohoidectomy. Numerous sinus surgeries. Cervical fusion; Thoracic fusion; Lumbar laminectomy Past Anesthesia/Blood Transfusion Reactions: No Reported Reaction Past Psychological History: Anxiety, Depression Smoking Status: Never smoker Past Alcohol Use History: None Reported Past Drug Use History: None Reported - Past Family History Mother Family Medical History: Dementia, Pneumonia Father Family Medical History: Cancer Additional Family Medical History / Comment(s): lung cancer Sister(s) Family Medical History: Cancer Additional Family Medical History / Comment(s): brain and lung cancer Son(s) Family Medical History: Coronary Artery Disease (CAD), Myocardial Infarction ([place]) Daughter(s) History Unknown: Yes Family Medical History: No Reported History General Exam Limitations: no limitations General appearance: alert, in no apparent distress Head exam: Present: atraumatic, normocephalic, normal inspection Neck exam: Present: normal inspection, full ROM. Absent: tenderness, meningismus, lymphadenopathy Respiratory exam: Present: normal lung sounds bilaterally. Absent: respiratory distress, wheezes, rales, rhonchi, stridor Cardiovascular Exam: Present: regular rate, normal rhythm, normal heart sounds. Absent: systolic murmur, diastolic murmur, rubs, gallop, clicks GI/Abdominal exam: Present: soft, tenderness (Moderate lower abdominal, sup rapubic tenderness), normal bowel sounds. Absent: distended, guarding, rebound, rigid Back exam: Absent: CVA tenderness (R), CVA tenderness (L) Neurological exam: Present: alert, oriented X3, other (Patient has resting tremor secondary to Parkinson's disease) Skin exam: Present: warm, dry, intact, normal color. Absent: rash Course Vital Signs 05/28/20 08:24 Temperature 98 F Pulse Rate 58 L Respiratory 20 Rate Blood Pressure 166/85 O2 Sat by Pulse 99 Oximetry Medical Decision Making - Medical Decision Making 74-year-old presented for abnormal labs. Patient's lipase is minimally elevated. Patient's pain in his lower groin or abdomen area consistent with his kidney stone within the ureter. Patient has no signs of infection. Patient had multiple recent CT scans. Patient was processes urology but canceled his appointment. Patient will be discharged with Reglan for his nausea advised that he needs to increase his fluid intake and follow-up PCP tomorrow. - Lab Data Result diagrams: 05/28/20 08:46 05/28/20 08:46 Lab Results 05/28/20 05/28/20 05/28/20 Range/Units 08:46 08:46 08:57 WBC 6.4 (3.8-10.6) k/uL RBC 4.91 (4.30-5.90) m/uL Hgb 12.7 L (13.0-17.5) gm/dL Hct 40.1 (39.0-53.0) % MCV 81.8 (80.0-100.0) fL MCH 26.0 (25.0-35.0) pg MCHC 31.7 (31.0-37.0) g/dL RDW 13.4 (11.5-15.5) % Plt Count 251 (150-450) k/uL Neutrophils % 62 % Lymphocytes % 24 % Monocytes % 6 % Eosinophils % 5 % Basophils % 1 % Neutrophils # 4.0 (1.3-7.7) k/uL Lymphocytes # 1.5 (1.0-4.8) k/uL Monocytes # 0.4 (0-1.0) k/uL Eosinophils # 0.3 (0-0.7) k/uL Basophils # 0.1 (0-0.2) k/uL Sodium 140 (137-145) mmol/L Potassium 4.8 (3.5-5.1) mmol/L Chloride 104 (98-107) mmol/L Carbon Dioxide 28 (22-30) mmol/L Anion Gap 8 mmol/L BUN 25 H (9-20) mg/dL Creatinine 1.16 (0.66-1.25) mg/dL Est GFR (CKD-EPI)AfAm 71 (>60 ml/min/1.73 sqM) Est GFR (CKD-EPI)NonAf 61 (>60 ml/min/1.73 sqM) Glucose 110 H (74-99) mg/dL Calcium 10.1 (8.4-10.2) mg/dL Total Bilirubin 0.7 (0.2-1.3) mg/dL AST 28 (17-59) U/L ALT 22 (4-49) U/L Alkaline Phosphatase 92 (38-126) U/L Total Protein 7.2 (6.3-8.2) g/dL Albumin 4.7 (3.5-5.0) g/dL Amylase 110 (30-110) U/L Lipase 468 H (23-300) U/L Urine Color Yellow Urine Appearance Clear (Clear) Urine pH 5.5 (5.0-8.0) Ur Specific [place] 1.027 (1.001-1.035) Urine Protein Trace H (Negative) Urine Glucose (UA) Negative (Negative) Urine Ketones Negative (Negative) Urine Blood Negative (Negative) Urine Nitrite Negative (Negative) Urine Bilirubin Negative (Negative) Urine Urobilinogen 2.0 (<2.0) mg/dL Ur Leukocyte Esterase Negative (Negative) Disposition Clinical Impression: Nausea & vomiting, Kidney stone Disposition: HOME SELF-CARE Condition: Stable Instructions (If sedation given, give patient instructions): Acute Nausea and Vomiting (ED) Additional Instructions: Please return to the Emergency Department if symptoms worsen or any other concerns. Prescriptions: Metoclopramide [Reglan] 10 mg PO TID PRN #18 tab PRN Reason: GERD Is patient prescribed a controlled substance at d/c from ED?: No Referrals: Papi Noriega MD [Primary Care Provider] - 1-2 days Time of Disposition: 10:26
[2020-05-28 08:54] LABS: Basophils # (A) 0.1 k/uL (0-0.2); Basophils % (A) 1 %; Eosinophils # (A) 0.3 k/uL (0-0.7); Eosinophils % (A) 5 %; HCT 40.1 % (39.0-53.0); HGB 12.7 gm/dL (13.0-17.5); Lymphocytes # (A) 1.5 k/uL (1.0-4.8); Lymphocytes % (A) 24 %; MCHC 31.7 g/dL (31.0-37.0); MCV 81.8 fL (80.0-100.0); Mean Platelet Volume 8.8; Monocytes # (A) 0.4 k/uL (0-1.0); Monocytes % (A) 6 %; Neutrophils % (A) 62 %; Platelet Count 251 k/uL (150-450); RBC 4.91 m/uL (4.30-5.90); RDW 13.4 % (11.5-15.5); WBC 6.4 k/uL (3.8-10.6)
[2020-05-28 09:12] LABS: Albumin 4.7 g/dL (3.5-5.0); Calcium 10.1 mg/dL (8.4-10.2); Potassium 4.8 mmol/L (3.5-5.1); Total Bilirubin 0.7 mg/dL (0.2-1.3); Total Protein 7.2 g/dL (6.3-8.2)
[2020-05-28 09:37] LABS: Appearance,Urine Clear (Clear); Bilirubin,Urine Negative (Negative); Blood,Urine Negative (Negative); Color,Urine Yellow; Glucose,Urine (UA) Negative (Negative); Ketones,Urine Negative (Negative); Leukocyte Esterase,Urine Negative (Negative); Nitrite,Urine Negative (Negative); PH, Urine 5.5 (5.0-8.0); Protein,Urine Trace (Negative); Specific Gravity,Urine 1.027 (1.001-1.035)
--- NOTE | 2020-05-28 09:58 | XR ---
EXAMINATION TYPE: XR KUB DATE OF EXAM: 05/28/2020 9:14 AM CLINICAL HISTORY: Right-sided abdominal pain with nausea and vomiting. TECHNIQUE: 3 supine images of the abdomen and pelvis obtained. COMPARISON: CT abdomen pelvis 05/26/2020. FINDINGS: Cholecystectomy clips of the right upper quadrant. Splenic artery calcifications of the lef t upper quadrant. Calcifications overlying the left renal shadow. Small density over the right pelvis may represent the distal right ureteral calculus seen on 05/26/2020 CT comparison, however is overlap ped by bowel contents. The left ureteral calculus is not discretely seen and better appreciated on CT comparison. Scattered gas is seen in non-distended small bowel loops. Gas and fecal material is seen in non-distended colon. There is no visceromegaly,. No evidence of pneumoperitoneum within limits of supine examination. IMPRESSION: 1. Nonobstructive bowel gas pattern. 2. Left nephrolithiasis. 3. Density over the right pelvis may represent distal right ureteral calculus seen on 05/26/2020 CT c omparison, however overlapped by bowel contents. Left ureteral calculus described on CT comparison is not discretely visualized on current radiograph.
[2020-05-28 11:08] VITALS: BP 127/70; PULSE 53; RESP 18
== END 2020-05-28 11:08 | disposition home or self-care (01) ==
LOC: EC 08:21
DX: N20.0 Calculus of kidney (principal); R74.8 Abnormal levels of other serum enzymes; E11.9 Type 2 diabetes mellitus without complications; E78.5 Hyperlipidemia, unspecified; G20 Parkinson's disease; F41.9 Anxiety disorder, unspecified; F32.9 Major depressive disorder, single episode, unspecified; G47.30 Sleep apnea, unspecified; E07.9 Disorder of thyroid, unspecified; Z79.84 Long term (current) use of oral hypoglycemic drugs; Z79.899 Other long term (current) drug therapy; Z79.890 Hormone replacement therapy; Z99.89 Dependence on other enabling machines and devices; Z90.89 Acquired absence of other organs; Z90.49 Acquired absence of other specified parts of digestive tract; Z96.653 Presence of artificial knee joint, bilateral
CPT/HCPCS: 36415; 80053; 82150; 83690; 85025; 81003; 74018; 99284; 96374; 96361; J1885

== ENCOUNTER 2021-09-25 19:57 | Inpatient (IN) | payer MEDICARE ==
[2021-09-25] MEDS ORDERED: SODIUM CHLORIDE 0.9% 500 ML 500 ML IV STA (21:17)
--- NOTE | 2021-09-25 21:20 | ED ---
General Adult HPI - General Chief complaint: Weakness Stated complaint: Weakness - History of Present Illness Initial comments: Dictation was produced using [employer] dictation software. please excuse any grammatical, word or spelling errors. Chief Complaint: 75-year-old male presents emergency Department for slurred speech History of Present Illness: Patient is a 75-year-old male who has past medical history Parkinson's dementia, and ABGs and dyslipidemia. Presents to the ER today for slurred speech. He is accompanied by daughter and . Slurred speech was noted approximately 6:51 PM today. Patient states that he feels like his tongue is wide and is making it hard for him to talk. Patient believes that he is here in emergency department for abdominal pain. He has chronic history of abdominal pain. Denies any numbness and paresthesias to the arms or legs. Patient denies any history of strokes. Family believes that patient's issues could be from his Parkinson's dementia. The ROS documented in this emergency department record has been reviewed and confirmed by me. Those systems with pertinent positive or negative responses have been documented in the HPI. All other systems are other negative and/or noncontributory. PHYSICAL EXAM: General Impression: Alert and oriented x3, not in acute distress HEENT: Normocephalic atraumatic, extra-ocular movements intact, pupils equal and reactive to light bilaterally, mucous membranes moist. Cardiovascular: Heart regular rate and rhythm Chest: Able to complete full sentences, no retractions, no tachypnea Abdomen: abdomen soft, non-tender, non-distended, no organomegaly Musculoskeletal: Pulses present and equal in all extremities, no peripheral edema Motor: no focal deficits noted Neurological: CN II-XII grossly intact, no focal motor or sensory deficits no mohan, mild dysarthria and mild word finding difficulties. NIH score of 2 Skin: Intact with no visualized rashes Psych: Normal affect and mood ED course: 75-year-old male presents to the emergency department for chief complaint of slurred speech noticed by family starting at 6:51 PM today. Patient given it NIH score 1. Vital signs upon arrival are within acceptable limits. This point patient has low score. He is not a good candidate for TPA because risk outweighed the benefits. Computed tomography scan of the brain is unremarkable. CT angios shows no large vessel occlusion. There is minimal plaque formation at the carotid artery bifurcations. Case is discussed with stroke physician, Dr. Mcqueen whose agreeable that patient is not a TPA candidate.laboratory evaluation obtained. CBC, metabolic panel is unremarkable. Patient reevaluated at the bedside at 10:45 PM found to be stable medical condition. Family still reports that patient is still having active symptoms. Patient will be admitted to the hospital consultation to neurology. Patient admitted to [facility]. EKG interpretation: Ventricular rate 89, sinus bradycardia,. Interval 140, QRS 96, QTC 465. No CA prolongation, no QTC prolongation, no ST or T-wave changes noted. EKG compared to 05/16/2020 showing no changes. Overall, this EKG is unremarkable - Related Data Home Medications Medication Instructions Recorded Confirmed Atorvastatin [Lipitor] 40 mg PO HS 04/19/18 05/28/20 Carbidopa-Levodopa 25-100 mg 3 tab PO QID 04/19/18 05/28/20 [Sinemet 25-100 mg] DULoxetine HCL [Cymbalta] 30 mg PO HS 04/19/18 05/28/20 DULoxetine HCL [Cymbalta] 60 mg PO DAILY 04/19/18 05/28/20 Levothyroxine Sodium 25 mcg PO DAILY 04/19/18 05/28/20 QUEtiapine [SEROquel] 25 mg PO HS 04/19/18 05/28/20 buPROPion [Wellbutrin] 75 mg PO DAILY 04/19/18 05/28/20 metFORMIN HCL [Glucophage] 500 mg PO BID 04/19/18 05/28/20 Donepezil [Aricept] 10 mg PO DAILY 05/04/20 05/28/20 Midodrine HCl [ProAmatine] 20 mg PO TID PRN 05/04/20 05/28/20 Polyethylene Glycol 3350 [Clearlax] 17 gm PO DAILY PRN 05/04/20 05/28/20 Tamsulosin [Flomax] 0.4 mg PO DAILY 05/04/20 05/28/20 Neupro Patch 1 patch TOPICAL HS MDD 2MG/24HR 05/28/20 05/28/20 PATCH Ondansetron Odt [Zofran Odt] 8 mg PO Q8HR 05/28/20 05/28/20 Previous Rx's Medication Instructions Recorded Omeprazole [PriLOSEC] 20 mg PO AC-BID #60 cap 05/19/20 Ketorolac [Toradol] 10 mg PO Q8HR #15 tab 05/28/20 Metoclopramide [Reglan] 10 mg PO TID PRN #18 tab 05/28/20 Allergies Allergy/AdvReac Type Severity Reaction Status Date / Time No Known Allergies Allergy Verified 05/28/20 09:28 Review of Systems ROS Statement: Those systems with pertinent positive or pertinent negative responses have been documented in the HPI. ROS Other: All systems not noted in ROS Statement are negative. 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 Bilateral total knee replacement; Bilateral Ankle surgery. Thyroidectomy, hemrrohoidectomy. Numerous sinus surgeries. Cervical fusion; Thoracic fusion; Lumbar laminectomy Past Anesthesia/Blood Transfusion Reactions: No Reported Reaction Past Psychological History: Anxiety, Depression Smoking Status: Never smoker Past Alcohol Use History: None Reported Past Drug Use History: None Reported - Past Family History Mother Family Medical History: Dementia, Pneumonia Father Family Medical History: Cancer Additional Family Medical History / Comment(s): lung cancer Sister(s) Family Medical History: Cancer Additional Family Medical History / Comment(s): brain and lung cancer Son(s) Family Medical History: Coronary Artery Disease (CAD), Myocardial Infarction ([place]) Daughter(s) History Unknown: Yes Family Medical History: No Reported History Course Vital Signs 09/25/21 21:12 Temperature 97.2 F L Pulse Rate 57 L Respiratory 18 Rate Blood Pressure 158/69 O2 Sat by Pulse 95 Oximetry Medical Decision Making - Lab Data Result diagrams: 09/25/21 21:22 09/25/21 21:22 Lab Results 09/25/21 09/25/21 09/25/21 Range/Units 21:22 21:22 21:22 WBC 6.8 (3.8-10.6) k/uL RBC 4.90 (4.30-5.90) m/uL Hgb 13.5 (13.0-17.5) gm/dL Hct 42.0 (39.0-53.0) % MCV 85.6 (80.0-100.0) fL MCH 27.6 (25.0-35.0) pg MCHC 32.2 (31.0-37.0) g/dL RDW 14.6 (11.5-15.5) % Plt Count 250 (150-450) k/uL MPV 10.0 Neutrophils % 63 % Lymphocytes % 17 % Monocytes % 6 % Eosinophils % 12 % Basophils % 0 % Neutrophils # 4.3 (1.3-7.7) k/uL Lymphocytes # 1.2 (1.0-4.8) k/uL Monocytes # 0.4 (0-1.0) k/uL Eosinophils # 0.8 H (0-0.7) k/uL Basophils # 0.0 (0-0.2) k/uL Sodium 138 (137-145) mmol/L Potassium 5.1 (3.5-5.1) mmol/L Chloride 108 H (98-107) mmol/L Carbon Dioxide 19 L (22-30) mmol/L Anion Gap 11 mmol/L BUN 33 H (9-20) mg/dL Creatinine 1.10 (0.66-1.25) mg/dL Est GFR (CKD-EPI)AfAm 75 (>60 ml/min/1.73 sqM) Est GFR (CKD-EPI)NonAf 65 (>60 ml/min/1.73 sqM) Glucose 128 H (74-99) mg/dL Calcium 10.0 (8.4-10.2) mg/dL Total Bilirubin 0.8 (0.2-1.3) mg/dL AST 28 (17-59) U/L ALT 11 (4-49) U/L Alkaline Phosphatase 110 (38-126) U/L Troponin I 0.026 (0.000-0.034) ng/mL Total Protein 6.8 (6.3-8.2) g/dL Albumin 4.1 (3.5-5.0) g/dL Critical Care Time Critical Care Time: Yes Total Critical Care Time: 33 Disposition Clinical Impression: Dysarthria Disposition: ADMITTED IP TO THIS HOSP Condition: Fair Referrals: Papi Noriega MD [Primary Care Provider] - 1-2 days
[2021-09-25 21:42] LABS: Basophils % (A) 0 %; Eosinophils # (A) 0.8 k/uL (0-0.7); Eosinophils % (A) 12 %; HGB 13.5 gm/dL (13.0-17.5); Lymphocytes # (A) 1.2 k/uL (1.0-4.8); Lymphocytes % (A) 17 %; MCH 27.6 pg (25.0-35.0); MCHC 32.2 g/dL (31.0-37.0); MCV 85.6 fL (80.0-100.0); Monocytes # (A) 0.4 k/uL (0-1.0); Monocytes % (A) 6 %; Neutrophils # (A) 4.3 k/uL (1.3-7.7); Neutrophils % (A) 63 %; Platelet Count 250 k/uL (150-450); RDW 14.6 % (11.5-15.5); WBC 6.8 k/uL (3.8-10.6)
--- NOTE | 2021-09-25 21:48 | CT ---
EXAMINATION TYPE: CT brain wo con for TPA DATE OF EXAM: 09/25/2021 COMPARISON: None HISTORY: Slurred speech. CT DLP: 1211.8 mGycm Automated exposure control for dose reduction was used. Ventricles have normal size. There is no mass effect nor midline shift. There is no sign of intracran ial hemorrhage. There is minimal hypodensity in the periventricular white matter. Calvarium is intact . There is normal aeration of the mastoid sinuses. IMPRESSION: Minimal chronic small vessel ischemia. No acute intracranial abnormality.
--- NOTE | 2021-09-25 21:58 | CT ---
EXAMINATION TYPE: CT angio head neck DATE OF EXAM: 09/25/2021 COMPARISON: None HISTORY: Slurred speech. Scanned by SAP. No prior. CT DLP: 471.3 mGycm Automated exposure control for dose reduction was used. CONTRAST: Performed with IV Contrast, patient injected with 65 mL of Isovue 370. There are 3-D post processed images. There is normal branching pattern of the great vessels on the aortic arch. There is arterial flow in both subclavian arteries. There is arterial flow in the common internal and external carotid arteries bilaterally. There is some mild plaque formation at the carotid artery bifurcations and less than 20 % stenosis. There is arterial flow in both vertebral arteries. Right vertebral artery is larger than the left. There is arterial flow in the vertebrobasilar artery system. There is no evidence of caroti d or vertebral artery aneurysm or dissection. There is arterial flow in the anterior middle and posterior cerebral arteries. There is no evidence o f intracranial aneurysm or neovascularity. There is no mass effect. There is normal contrast opacific ation of the venous sinuses. The calvarium is intact. There is no evidence of intracranial hemodynamic arterial stenosis. IMPRESSION: Negative CT angiogram of the neck. Negative CT angiogram of the brain. Minimal plaque formation at th e carotid artery bifurcations.
[2021-09-25 22:02] LABS: Total Bilirubin 0.8 mg/dL (0.2-1.3)
[2021-09-25] MEDS ORDERED: ASPIRIN 81 MG PO STA (22:21)
--- NOTE | 2021-09-25 22:23 | XR ---
EXAMINATION TYPE: XR chest 1V DATE OF EXAM: 09/25/2021 COMPARISON: 05/16/2020 HISTORY: Weakness TECHNIQUE: 2 views FINDINGS: There is no heart failure nor confluent pneumonic infiltrate. Costophrenic angles are clear . There are chest leads. There are sternal wires. IMPRESSION: No active cardiopulmonary disease. No change.
[2021-09-25 22:30] LABS: Potassium 5.1 mmol/L (3.5-5.1)
[2021-09-25 22:31] LABS: Albumin 4.1 g/dL (3.5-5.0); Total Protein 6.8 g/dL (6.3-8.2)
--- NOTE | 2021-09-26 02:36 | P.HPIM ---
History of Present Illness H&P Date: 09/25/21 The patient was seen and evaluated in the emergency room at 11 PM on 09/25. Delayed charting due to downtime. The patient is a 75-year-old male with a PMH of Parkinson's, coronary artery disease, type II DM, hyperlipidemia, and hypothyroidism who was brought into the emergency room by his family due to slurring of speech. The family had reported that the patient's symptoms started around 6:50 p.m. earlier tonight. The patient however states that his mouth has been excessively dry over the past several months which he was told is a result of the Parkinson's. He notes that every time his tongue gets excessively dry, he is unable to speak properly, and that his symptoms improve with drinking water. The patient also reports occasional difficulty swallowing his food and medications. Denied any choking fits are chronic coughing. He denied any additional complaints. He denied noticing weakness, numbness, or tingling. Denied facial droop or visual changes. Reports gradually worsening tremor of the right hand, which he attributes to the Parkinson's for which he has been following with neurologist out of [facility]. The case was discussed by the ED physician with neuro certified medical aide coroner/medical examiner. NIH score at that time was [address] angiogram of the head and neck unremarkable. The patient was deemed to not be a candidate for TPA as benefits outweighed the risks. Laboratory evaluation in the emergency room was remarkable for BUN 33, creatinine 1.10. EKG revealed sinus bradycardia with APCs at 59 bpm with LVH and T-wave inversions in leads V5 and V6 with flattening in leads V1 and 2. Review of systems: Pertinent positives and negatives as discussed in HPI, a complete review of systems was performed and all other systems are negative. Physical examination: General: non toxic, no distress, appears at stated age, normal weight Derm: no unusual rashes/lesions no unusual ecchymoses, warm, dry Head: atraumatic, normocephalic, symmetric Eyes: EOMI, no lid lag, anicteric sclera, pupils equal round reactive to light ENT: Nose and ears atraumatic, no thrush, no pharyngeal erythema Neck: No thyromegaly, no cervical lymphadenopathy, trachea midline, supple Mouth: no lip lesion, mucus membranes dry Cardiovascular: S1S2 reg, no murmur, positive posterior tibial pulse bilateral, no edema, capillary refill less than 2 seconds Lungs: CTA bilateral, no rhonchi, no rales , no accessory muscle use Abdominal: soft, nontender to palpation, no guarding, no appreciable or ganomegaly, normal bowel sounds Ext: no gross muscle atrophy, muscle strength 5 out of 5 in all 4 extremities grossly, no contractures, Neuro: CN II-XI grossly intact, light touch intact all 4 extremities, finger to nose abnormal with past pointing with right arm Psych: Alert, oriented, appropriate affect Assessment/plan Dysarthria -Neurology consulted -Neurochecks -Continue with aspirin Xerostomia -Obtain DRY WALL INSTALLER consult for now -Serology w/u for Sjogrens sent Prerenal azotemia -Likely secondary to poor oral intake -IV fluids -Monitor for now Chronic medications: Type II DM, hypertension, hyperlipidemia, Parkinson's -Continue with home meds DVT prophylaxis -Heparin subq The patient is admitted with an anticipated greater than 2 midnight stay for evaluation of dysarthria CODE STATUS: Full Code Discussed with: Patient Anticipated discharge date: 2-[address]: Home Past Medical History Past Medical History: Coronary Artery Disease (CAD), Diabetes Mellitus, Hyperlipidemia, Neurologic Disorder, Sleep Apnea/CPAP/BIPAP, Thyroid Disorder Additional Past Medical History / Comment(s): Lew[place] Body 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 Bilateral total knee replacement; Bilateral Ankle surgery. Thyroidectomy, hemrrohoidectomy. Numerous sinus surgeries. Cervical fusion; Thoracic fusion; Lumbar laminectomy Past Anesthesia/Blood Transfusion Reactions: No Reported Reaction Past Psychological History: Anxiety, Depression Smoking Status: Never smoker Past Alcohol Use History: None Reported Past Drug Use History: None Reported - Past Family History Mother Family Medical History: Dementia, Pneumonia Father Family Medical History: Cancer Additional Family Medical History / Comment(s): lung cancer Sister(s) Family Medical History: Cancer Additional Family Medical History / Comment(s): brain and lung cancer Son(s) Family Medical History: Coronary Artery Disease (CAD), Myocardial Infarction ([place]) Daughter(s) History Unknown: Yes Family Medical History: No Reported History Medications and Allergies Home Medications Medication Instructions Recorded Confirmed Type Atorvastatin [Lipitor] 40 mg PO HS 04/19/18 05/28/20 History Carbidopa-Levodopa 25-100 mg 3 tab PO QID 04/19/18 05/28/20 History [Sinemet 25-100 mg] DULoxetine HCL [Cymbalta] 30 mg PO HS 04/19/18 05/28/20 History DULoxetine HCL [Cymbalta] 60 mg PO DAILY 04/19/18 05/28/20 History Levothyroxine Sodium 25 mcg PO DAILY 04/19/18 05/28/20 History QUEtiapine [SEROquel] 25 mg PO HS 04/19/18 05/28/20 History buPROPion [Wellbutrin] 75 mg PO DAILY 04/19/18 05/28/20 History metFORMIN HCL [Glucophage] 500 mg PO BID 04/19/18 05/28/20 History Donepezil [Aricept] 10 mg PO DAILY 05/04/20 05/28/20 History Midodrine HCl [ProAmatine] 20 mg PO TID PRN 05/04/20 05/28/20 History Polyethylene Glycol 3350 [Clearlax] 17 gm PO DAILY PRN 05/04/20 05/28/20 History Tamsulosin [Flomax] 0.4 mg PO DAILY 05/04/20 05/28/20 History Omeprazole [PriLOSEC] 20 mg PO AC-BID #60 cap 05/19/20 05/28/20 Rx Ketorolac [Toradol] 10 mg PO Q8HR #15 tab 05/28/20 Rx Metoclopramide [Reglan] 10 mg PO TID PRN #18 tab 05/28/20 Rx Neupro Patch 1 patch TOPICAL HS MDD 2MG/24HR 05/28/20 05/28/20 History PATCH Ondansetron Odt [Zofran Odt] 8 mg PO Q8HR 05/28/20 05/28/20 History Allergies Allergy/AdvReac Type Severity Reaction Status Date / Time No Known Allergies Allergy Verified 05/28/20 09:28 Physical Exam Vitals: Vital Signs Temp Pulse Resp BP Pulse Ox 11/14/21 21:12 97.2 F L 57 L 18 158/69 95 Intake and Output 09/25/21 09/25/21 09/26/21 14:59 22:59 06:59 Other: Weight 68.039 kg Results CBC & Chem 7: 09/25/21 21:22 09/25/21 21:22 Labs: Abnormal Lab Results - Last 24 Hours (Table) 09/25/21 09/25/21 Range/Units 21:22 21:22 Eosinophils # 0.8 H (0-0.7) k/uL Chloride 108 H (98-107) mmol/L Carbon Dioxide 19 L (22-30) mmol/L BUN 33 H (9-20) mg/dL Glucose 128 H (74-99) mg/dL
[2021-09-26] MEDS: SODIUM CHLORIDE 0.9% 1,000 ML IV SCH ×2 (03:45→20:15)
[2021-09-26 07:07] LABS: African American GFR (CKD) 85 (>60 ml/min/1.73 sqM); Anion Gap 9 mmol/L; Blood Urea Nitrogen 29 mg/dL (9-20); Calcium 9.7 mg/dL (8.4-10.2); Carbon Dioxide 21 mmol/L (22-30); Chloride 108 mmol/L (98-107); Glucose 112 mg/dL (74-99); Non-African American GFR(CKD) 73 (>60 ml/min/1.73 sqM); Potassium 4.4 mmol/L (3.5-5.1); Sodium 138 mmol/L (137-145)
[2021-09-26] MEDS: INSULIN ASPART (NovoLOG) 100 UNIT/ML VIAL SQ SCH ×4 (08:03→20:44)
[2021-09-26 08:05] LABS: Glucose,Whole Blood 104 mg/dL (75-99)
[2021-09-26] MEDS: HEPARIN SODIUM,PORCINE/PF 5,000 UNIT/0.5 ML SYRINGE SQ SCH ×3 (08:05→23:31)
[2021-09-26] MEDS: ASPIRIN 325 MG TAB PO SCH (08:05)
[2021-09-26] MEDS ORDERED: polyethylene glycoL 3350 17 GM POWD.PACK PO PRN (09:18)
[2021-09-26] MEDS: TAMSULOSIN 0.4 MG CAP.ER.24H PO SCH (10:01)
[2021-09-26] MEDS: LEVOTHYROXINE 25 MCG TAB PO SCH (10:02)
[2021-09-26 11:56] LABS: Chol/HDL Ratio 2.22 Ratio; LDL Cholesterol,Calculated 60.6 mg/dL (0.0-131.0); VLDL Calculation 11.34 mg/dL (5.00-40.00)
[2021-09-26 13:02] LABS: Glucose,Whole Blood 144 mg/dL (75-99)
--- NOTE | 2021-09-26 13:08 | ECHOF ---
Referral Reason:Stroke/TIA MEASUREMENTS -------- HEIGHT: 177.8 cm WEIGHT: 68.0 kg BP: 141/79 RVIDd: 3.9 cm (< 3.3) IVSd: 1.4 cm (0.6 - 1.1) LVIDd: 3.9 cm (3.9 - 5.3) LVPWd: 1.3 cm (0.6 - 1.1) IVSs: 1.8 cm LVIDs: 2.5 cm LVPWs: 2.0 cm LAESV Index (A-L): 29.00 ml/m Ao Diam: 3.4 cm (2.0 - 3.7) AV Cusp: 2.2 cm (1.5 - 2.6) LA Diam: 4.1 cm (2.7 - 3.8) MV EXCURSION: 9.586 mm (> 18.000) MV EF SLOPE: 56 mm/s (70 - 150) EPSS: 0.6 cm MV E Samuel: 0.56 m/s MV DecT: 277 ms MV A Samuel: 1.15 m/s MV E/A Ratio: 0.49 RAP: 5.00 mmHg RVSP: 33.52 mmHg FINDINGS -------- Sinus rhythm. This was a technically adequate study. The left ventricular size is normal. There is severe concentric left ventricular hypertrophy. Ove rall left ventricular systolic function is normal with, an EF between 55 - 60 %. The diastolic fill ing pattern is normal for the age of the patient 11.61. The right ventricle is moderately enlarged. LA is midly dilated 29-33ml/m2. The right atrial size is normal. Contrast study was performed with 2 iv injections of 8 ccs of agitated normal saline, at rest, and wi th cough. Interatrial and interventricular septum intact. The aortic valve is trileaflet and appears structurally normal. There is no evidence of aortic regu rgitation. There is no evidence of aortic stenosis. Mild mitral regurgitation is present. Mild tricuspid regurgitation present. There is no evidence of pulmonary hypertension. The right v entricular systolic pressure, as measured by Doppler, is 33.52mmHg. There is no pulmonic regurgitation present. The aortic root size is normal. IVC Not well visulized. There is no pericardial effusion. CONCLUSIONS -------- 1. The left ventricular size is normal. 2. Overall left ventricular systolic function is normal with, an EF between 55 - 60 %. 3. The diastolic filling pattern is normal for the age of the patient 11.61 4. The right ventricle is moderately enlarged. 5. LA is midly dilated 29-33ml/m2. 6. Mild mitral regurgitation is present. 7. Mild tricuspid regurgitation present. PERIODONTIST: Gayathri Douglas RDCS
[2021-09-26] MEDS: MIDODRINE 5 MG TAB PO SCH ×2 (13:15→20:17)
[2021-09-26] MEDS: busPIRone HCl 10 MG TAB PO SCH ×2 (13:15→20:44)
[2021-09-26] MEDS: CARBIDOPA-LEVODOPA 25-100 MG 1 EACH TAB PO SCH ×3 (13:15→23:30)
--- NOTE | 2021-09-26 13:48 | P.CNNES ---
History of Present Illness Consult date: 09/26/21 Requesting physician: Johnny Velásquez Reason for Consult: Code stroke History of Present Illness: Patient is a 75-year-old male with history of Parkinson's disease, dementia, diabetes and dyslipidemia came to the hospital by ambulance yesterday at 7:57 PM for slurred speech. EMS flow sheet not available in the chart. Patient and his were present and also patient's daughter on the phone at this time. Patient's daughter mentioned that yesterday he slept a lot. After dinner he again went to sleep. When he woke up, could not keep his eyes open. At that time his daughter noticed that he was having slurred speech. The symptoms started at approximately 6:51 PM, earlier the same day. He felt like his tongue was wide, thick and is making it hard for him to talk. He was having word finding difficulty, could not put words into sentences. There was no report of facial droop, visual problems, focal weakness, numbness or paralysis. His mouth was very dry. No previous history of strokes. Patient's NIH stroke scale was 2. This was mainly related to mild dysarthria and mild word finding difficulty. Vital signs on arrival blood pressure 158/69, pulse rate 57, temperature 97.2. Blood test shows normal CBC, Chem-7 with BUN 33 creatinine 1.10. Hepatic panel negative, troponin negative. Young virus PCR negative. CT head showed minimal chronic small vessel ischemia. No acute intracranial abnormality. CTA of head and neck showed minimal plaque formation at the carotid artery bifurcation. Otherwise negative. Chest x-ray showed no acute cardioverter process. EKG with sinus bradycardia with premature atrial complexes. Probable left atrial enlargement. Left ventricular hypertrophy with repolarization abnormality. Septal infarct, age undetermined. ED staff discussed case with the stroke neurologist Dr. Curtis, and patient was felt not a candidate for TPA. Patient was given aspirin 324 mg in the ED, and started on aspirin 325 mg daily. At present patient's daughter believes that his symptoms are 80-90% back to baseline. He is able to put words in sentences and slurring has much improved, not as bad as last night. Patient's home medications Lasix metformin, Wellbutrin 75 mg, Seroquel 25 mg at bedtime, levothyroxine, Cymbalta 30 mg, Cymbalta 60 mg, Sinemet 25/103 tablets 4 times a day, Lipitor 40 mg, donepezil 10 mg, midodrine 20 mg 3 times a day, Flomax, omeprazole, Neupro patch, Reglan 10 mg 3 times a day when necessary. Patient apparently did not on any antiplatelets or anticoagulants. No previous history of strokes or TIA. Patient denies hypertension. He has diabetes for last 10 years. He has hyperlipidemia for which he takes atorvastatin. Patient follows up with Dr. Saira German, neurologist [facility] for Parkinson's. His Parkinson's is well controlled with current medication regimen. He also had syncopal spells for which he has been on midodrine. Patient complains of significant urgency of urination for last 2 years. His equilibrium is off. He also had problems with control of bowels. Patient is complaining of some difficulty focusing, but is a chronic issue, related to his significant glaucoma particularly involving the right eye. He was told by peach grower that he may lose vision out of right eye. Patient has history of open heart surgery. Review of Systems As mentioned above in detail in HPI. All other 14 point of review of systems reviewed and noncontributory. No fever or chills. No chest pain or abdominal pain at this time. No hallucinations. 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 Bilateral total knee replacement; Bilateral Ankle surgery. Thyroidectomy, hemrrohoidectomy. Numerous sinus surgeries. Cervical fusion; Thoracic fusion; Lumbar laminectomy Past Anesthesia/Blood Transfusion Reactions: No Reported Reaction Past Psychological History: Anxiety, Depression Smoking Status: Never smoker Past Alcohol Use History: None Reported Past Drug Use History: None Reported - Past Family History Mother Family Medical History: Dementia, Pneumonia Father Family Medical History: Cancer Additional Family Medical History / Comment(s): lung cancer Sister(s) Family Medical History: Cancer Additional Family Medical History / Comment(s): brain and lung cancer Son(s) Family Medical History: Coronary Artery Disease (CAD), Myocardial Infarction ([place] ) Daughter(s) History Unknown: Yes Family Medical History: No Reported History Medications and Allergies Home Medications Medication Instructions Recorded Confirmed Type Atorvastatin [Lipitor] 40 mg PO DAILY@0900 04/19/18 09/26/21 History Carbidopa-Levodopa 25-100 mg 3 tab PO QID 04/19/18 09/26/21 History [Sinemet 25-100 mg] Levothyroxine Sodium 25 mcg PO DAILY 04/19/18 09/26/21 History QUEtiapine [SEROquel] 50 mg PO HS@209904/19/18 09/26/21 History buPROPion [Wellbutrin] 75 mg PO DAILY 04/19/18 09/26/21 History metFORMIN HCL [Glucophage] 500 mg PO BID@0900,1700 04/19/18 09/26/21 History Donepezil [Aricept] 10 mg PO HS@209905/04/20 09/26/21 History Midodrine HCl [ProAmatine] 30 mg PO TID@0900,1200,1700 05/04/20 09/26/21 History Polyethylene Glycol 3350 [Clearlax] 17 gm PO DAILY PRN 05/04/20 09/26/21 History Tamsulosin [Flomax] 0.4 mg PO DAILY 05/04/20 09/26/21 History Amantadine HCl [Gocovri] 274 mg PO HS@209909/26/21 09/26/21 History L.acidoph,Paracasei, B.lactis 1 cap PO DAILY@0900 09/26/21 09/26/21 History [Probiotic] Omeprazole [PriLOSEC] 20 mg PO BID@0900,1700 09/26/21 09/26/21 History Ondansetron [Zofran] 4 mg PO Q12HR PRN 09/26/21 09/26/21 History busPIRone HCl [Buspar] 10 mg PO TID@0900,1200,2100 09/26/21 09/26/21 History Allergies Allergy/AdvReac Type Severity Reaction Status Date / Time No Known Allergies Allergy Verified 05/28/20 09:28 Physical Examination - Vital Signs Vital Signs: Vital Signs Temp Pulse Resp BP Pulse Ox 09/26/21 07:40 70 20 187/91 95 09/26/21 06:00 56 L 20 179/87 94 L 09/26/21 03:48 64 20 175/96 97 09/26/21 02:28 59 L 16 189/91 95 09/25/21 21:12 97.2 F L 57 L 18 158/69 95 Intake and Output 09/25/21 09/26/21 09/26/21 22:59 06:59 14:59 Other: Weight 68.039 kg Patient is an elderly male, in no acute distress. Patient is alert awake oriented to time place and person. Patient knows it is September 2021 and that he is in [facility] in [facility]. Speech and language functions are normal. Patient can name and repeat very well. No aphasia or dysarthria. Attention, concentration and fund of knowledge is adequate. On cranial examination, pupils are equal, round and mildly reacting to light, visual benoit are full on confrontation, extraocular muscles are intact with no nystagmus. Face is symmetric, tongue protrudes to the midline. Palatal elevation and sensation normal, hearing and shoulder shrug normal, facial sensation normal. Shoulder shrug normal. On muscle strength testing, there is left pronator drift, but he does have significant rotator cuff issues in the left upper limb as well. Otherwise the strength is normal in arms and legs distally and proximally. Deep tendon reflexes are 1+ to 2 in bilateral upper limbs, trace at the knees, trace at the ankles and plantars are downgoing bilaterally. Sensory to touch is equal with no neglect. Cerebellar function showed no ataxia for [id number] testing. No dysdiadochokinesia. Tone and bulk of muscles normal. Patient does have tremors at rest and with posture. Left more than right. Gait not checked. On general examination, there is no carotid bruit or murmur, S1-S2 audible. Abdomen is soft nontender. Chest is clear. Peripheral pulses are present. No edema. Results - Laboratory Findings CBC and BMP: 09/25/21 21:22 09/26/21 06:01 Abnormal Lab Findings: Abnormal Labs 09/25/21 09/25/21 09/26/21 21:22 21:22 06:01 Eosinophils # 0.8 H Chloride 108 H 108 H Carbon Dioxide 19 L 21 L BUN 33 H 29 H Glucose 128 H 112 H POC Glucose (mg/dL) 09/26/21 08:00 Eosinophils # Chloride Carbon Dioxide BUN Glucose POC Glucose (mg/dL) 104 H Assessment and Plan Assessment: * Probable stroke TIA, manifesting with slurred speech and some expressive aphasia, which now seems to have resolved. * Diabetes * Hyperlipidemia * Hypertension * Coronary artery disease * Parkinson's disease * Urinary urgency, chronic. Plan: * MRI of the brain evaluate for an acute stroke. * 2-D echo with bubble study, revealed normal left-ventricular size. EF is normal 55-60%. Left atrium is mildly dilated. * Continue telemetry monitoring. * CTA of head and neck showed minimal plaque formation at the carotid artery bifurcation. Otherwise negative. * Fasting lipid panel with cholesterol 131, LDL 60, HDL 59 and triglycerides 56.7. Lipitor 40 mg. * Hemoglobin A1c. * Agree with starting aspirin 325 mg daily. * Permissive hypertension for 24 hours pending MRI results. * PT OT. * DVT prophylaxis: Patient on heparin 5000 units, subcu every 8 hours. * We will follow.
--- NOTE | 2021-09-26 16:56 | P.PN ---
Subjective Patient was seen and evaluated by me this morning. Slurred speech has resolved and patient is now back to normal. Objective - Vital Signs Vital signs: Vital Signs Temp 97.9 F 09/26/21 11:20 Pulse 73 09/26/21 11:20 Resp 18 09/26/21 11:20 BP 174/87 09/26/21 11:20 Pulse Ox 95 09/26/21 11:20 Intake & Output 09/25/21 09/26/21 09/26/21 18:59 06:59 18:59 Weight 68.039 kg - Exam General: The patient is awake and alert, in no distress Eye: there is normal conjunctiva bilaterally. Neck: The neck is supple, there is no JVD. Cardiovascular: Normal S1-S2, no S3-S4, no murmurs. Respiratory: Lungs clear to auscultation bilaterally Gastrointestinal: Abdomen is soft, nontender Musculoskeletal: There is no pedal edema. Neurological:. Speech is normal. Skin: Skin is warm and dry - Labs CBC & Chem 7: 09/25/21 21:22 09/26/21 06:01 Labs: Abnormal Lab Results - Last 24 Hours (Table) 09/25/21 09/25/21 09/26/21 Range/Units 21:22 21:22 06:01 Eosinophils # 0.8 H (0-0.7) k/uL Chloride 108 H 108 H (98-107) mmol/L Carbon Dioxide 19 L 21 L (22-30) mmol/L BUN 33 H 29 H (9-20) mg/dL Glucose 128 H 112 H (74-99) mg/dL POC Glucose (mg/dL) (75-99) mg/dL Hemoglobin A1c (4.0-6.0) % 09/26/21 09/26/21 09/26/21 Range/Units 06:01 08:00 13:01 Eosinophils # (0-0.7) k/uL Chloride (98-107) mmol/L Carbon Dioxide (22-30) mmol/L BUN (9-20) mg/dL Glucose (74-99) mg/dL POC Glucose (mg/dL) 104 H 144 H (75-99) mg/dL Hemoglobin A1c 6.6 H (4.0-6.0) % Assessment and Plan Assessment: The patient is a 75-year-old male with a PMH of Parkinson's, coronary artery disease, type II DM, hyperlipidemia, and hypothyroidism who was brought into the emergency room by his family due to slurring of speech. Patient was evaluated in the ER and admitted to the hospital for further management of his medical problems noted below. 1. Episode of slurred speech with concerns about possible TIA, computed tomography scan of the brain and CT angiogram of the head and neck unremarkable. Patient was seen and evaluated by neurology. MRI ordered for further evaluation. Echocardiogram showed preserved ejection fraction with no reported intracardiac shunt. 2. Xerostomia: Clearly secondary to polypharmacy as patient is on Sinemet, Wellbutrin, and Seroquel which each one of them can cause xerostomia. I'm holding Wellbutrin and Seroquel for now. I will discuss further with patient and his . 3. Chronic medical problems: Type 2 diabetes, hypertension, hyperlipidemia, underlying Parkinson's disease, history of coronary artery disease Today, I reviewed his medication list and lab work results. May discontinue IV fluids. Awaiting MRI of the brain. Patient follow-up with neurology at [facility] regarding his underlying Parkinson's.
[2021-09-26] MEDS: PANTOPRAZOLE 40 MG TABLET PO SCH (18:50)
[2021-09-26 19:41] LABS: Folate, Serum 13.6 ng/mL (4.40-31.00)
[2021-09-26 20:28] LABS: Glucose,Whole Blood 217 mg/dL (75-99)
[2021-09-26] MEDS: DONEPEZIL 10 MG TAB PO SCH (20:44)
[2021-09-27] MEDS: LEVOTHYROXINE 25 MCG TAB PO SCH (05:42)
[2021-09-27 06:04] LABS: Glucose,Whole Blood 192 mg/dL (75-99)
[2021-09-27] MEDS: INSULIN ASPART (NovoLOG) 100 UNIT/ML VIAL SQ SCH ×4 (06:32→20:26)
[2021-09-27] MEDS ORDERED: ACETAMINOPHEN TAB 325 MG TAB PO PRN (09:37)
[2021-09-27] MEDS: HEPARIN SODIUM,PORCINE/PF 5,000 UNIT/0.5 ML SYRINGE SQ SCH ×3 (09:53→23:13)
[2021-09-27] MEDS: ATORVASTATIN 40 MG TAB PO SCH (09:53)
[2021-09-27] MEDS: TAMSULOSIN 0.4 MG CAP.ER.24H PO SCH (09:54)
[2021-09-27] MEDS: PANTOPRAZOLE 40 MG TABLET PO SCH ×2 (09:54→17:14)
[2021-09-27] MEDS: ASPIRIN 325 MG TAB PO SCH (09:54)
[2021-09-27] MEDS: CARBIDOPA-LEVODOPA 25-100 MG 1 EACH TAB PO SCH ×4 (09:54→23:12)
[2021-09-27] MEDS: busPIRone HCl 10 MG TAB PO SCH ×3 (09:56→20:26)
[2021-09-27] MEDS: MIDODRINE 5 MG TAB PO SCH ×3 (11:30→17:18)
[2021-09-27 11:58] LABS: Glucose,Whole Blood 119 mg/dL (75-99)
--- NOTE | 2021-09-27 14:30 | MR ---
EXAMINATION TYPE: MR brain wo con DATE OF EXAM: 09/27/2021 COMPARISON: CT brain 2 days ago. HISTORY: Slurred speech, stroke vs TIA. TECHNIQUE: Multiplanar, multisequence imaging of the brain and brainstem is performed without IV cont rast. FINDINGS: Diffusion weighted images demonstrate no evidence of a recent infarct or other diffusion abnormality. There is mild ventricular and sulcal prominence greatest over the bilateral frontal and temporal lobe s. Scattered foci of T2 hyperintensity throughout the white matter become more confluent at the periv entricular levels. Involvement in the caim is noted Midline structures demonstrate normal morphology. The craniocervical junction appears within normal limits. Normal vascular flow voids are present. Dominant right vertebral artery incidentally noted. T he visualized sinuses are clear and the globes are intact. IMPRESSION: No MRI evidence for recent infarct. There is mild diffuse cerebral atrophy greatest over the bilateral frontal and temporal lobes with more moderate to borderline severe chronic small vessel ischemic change present bilaterally.
[2021-09-27 16:46] LABS: Glucose,Whole Blood 188 mg/dL (75-99)
--- NOTE | 2021-09-27 18:45 | P.PN ---
Subjective Patient was seen and evaluated by me this morning. No acute events overnight. He was waiting for MRI of the brain. Objective - Vital Signs Vital signs: Vital Signs Temp 97.8 F 09/27/21 16:45 Pulse 72 09/27/21 16:45 Resp 17 09/27/21 16:45 BP 169/83 09/27/21 16:45 Pulse Ox 98 09/27/21 16:45 Intake & Output 09/26/21 09/27/21 09/27/21 18:59 06:59 18:59 Intake Total 780 Output Total 1515 250 Balance -735 -250 Weight 66.6 kg Intake: Intake, IV Titration 300 Amount Sodium Chloride 0.9% 1, 300 000 ml @ 75 mls/hr IV . [id number] [facility] Rx#:[id number] Oral 480 Output: Urine 1515 250 Other: Voiding Method Bedside Commode Bedside Commode Urinal Urinal # Voids 3 - Exam General: The patient is awake and alert, in no distress Eye: there is normal conjunctiva bilaterally. Neck: The neck is supple, there is no JVD. Cardiovascular: Normal S1-S2, no S3-S4, no murmurs. Respiratory: Lungs clear to auscultation bilaterally Gastrointestinal: Abdomen is soft, nontender Musculoskeletal: There is no pedal edema. Neurological:. Speech is normal. Skin: Skin is warm and dry - Labs CBC & Chem 7: 09/25/21 21:22 09/26/21 06:01 Labs: Abnormal Lab Results - Last 24 Hours (Table) 09/26/21 09/27/21 09/27/21 Range/Units 20:21 06:02 11:51 POC Glucose (mg/dL) 217 H 192 H 119 H (75-99) mg/dL 09/27/21 Range/Units 16:43 POC Glucose (mg/dL) 188 H (75-99) mg/dL Assessment and Plan Assessment: The patient is a 75-year-old male with a PMH of Parkinson's, coronary artery disease, type II DM, hyperlipidemia, and hypothyroidism who was brought into the emergency room by his family due to slurring of speech. Patient was evaluated in the ER and admitted to the hospital for further management of his medical problems noted below. 1. Episode of slurred speech with concerns about possible TIA, ruled out as MRI is normal. computed tomography scan of the brain and CT angiogram of the head and neck unremarkable. Patient was seen and evaluated by neurology. Echocardiogram showed preserved ejection fraction with no reported intracardiac shunt. 2. Xerostomia: Clearly secondary to polypharmacy as patient is on Sinemet, Wellbutrin, and Seroquel which each one of them can cause xerostomia. Had a prolonged discussion with the patient and his regarding risk and benefit of current regimen and they insisted to keep him on the same medications and fol low-up with neurology outpatient which is fine with me. 3. Chronic medical problems: Type 2 diabetes, hypertension, hyperlipidemia, underlying Parkinson's disease, history of coronary artery disease Today, I reviewed his medication list and lab work results. Patient follow-up with neurology at [facility] regarding his underlying Parkinson's. Discharged home in the morning
--- NOTE | 2021-09-27 19:52 | P.PN ---
Subjective Progress Note Date: 09/27/21 Patient was seen for a follow-up. Patient's was present. Patient's daughter was also present through face time on their cell phone. Patient is doing better. However patient's daughter feels that he still has delayed forming words, slight slurring. He did walk in the hallway with the PT and OT and with his walker. Patient for possible discharge in the morning with 2 weeks of home health care. Telemetry monitoring showing sinus rhythm, with sinus tachycardia. No new concerns. Objective - Vital Signs Vital signs: Vital Signs Temp 97.8 F 09/27/21 08:00 Pulse 66 09/27/21 14:00 Resp 18 09/27/21 14:00 BP 155/76 09/27/21 12:00 Pulse Ox 98 09/27/21 12:00 Intake & Output 09/26/21 09/27/21 09/27/21 18:59 06:59 18:59 Intake Total 780 Output Total 1515 250 Balance -735 -250 Weight 66.6 kg Intake: Intake, IV Titration 300 Amount Sodium Chloride 0.9% 1, 300 000 ml @ 75 mls/hr IV . [id number] [facility] Rx#:[id number] Oral 480 Output: Urine 1515 250 Other: Voiding Method Bedside Commode Bedside Commode Urinal Urinal # Voids 3 - Exam Patient's mental status, speech and language functions appears normal. Muscle strength is normal. Tone is normal. Patient has mild resting tremors. Cranial nerves normal. - Labs CBC & Chem 7: 09/25/21 21:22 09/26/21 06:01 Labs: Abnormal Lab Results - Last 24 Hours (Table) 09/26/21 09/26/21 09/27/21 Range/Units 06:01 20:21 06:02 POC Glucose (mg/dL) 217 H 192 H (75-99) mg/dL Hemoglobin A1c 6.6 H (4.0-6.0) % 09/27/21 Range/Units 11:51 POC Glucose (mg/dL) 119 H (75-99) mg/dL Hemoglobin A1c (4.0-6.0) % Assessment and Plan Assessment: * Probable stroke/TIA, manifesting with slurred speech and some expressive aphasia, which now seems to have resolved. Clinically appears CVA, as patient still has mild slurring, but MRI of the brain negative. * Diabetes * Hyperlipidemia * Hypertension * Coronary artery disease * Parkinson's disease * Urinary urgency, chronic. Plan: * MRI of the brain showed no evidence of acute stroke. There is mild diffuse cerebral atrophy, greatest over the bilateral frontal and temporal lobes with more moderate to borderline severe chronic small vessel ischemic change present bilaterally. * 2-D echo with bubble study, revealed normal left-ventricular size. EF is normal 55-60%. Left atrium is mildly dilated. * Telemetry monitoring showing sinus rhythm, with sinus tachycardia. * CTA of head and neck showed minimal plaque formation at the carotid artery bifurcation. Otherwise negative. * Fasting lipid panel with cholesterol 131, LDL 60, HDL 59 and triglycerides 56.7. Lipitor 40 mg. * Hemoglobin A1c 6.6, diabetes well controlled. * Continue aspirin 325 mg daily. After discharge, may stay on aspirin 81 mg twice a day. * Uncontrolled blood pressure to target <140/80 * PT OT. * DVT prophylaxis: Patient on heparin 5000 units, subcu every 8 hours. * Neurologically clear for discharge in a.m., if cleared by PT and OT. * Recommend follow-up with neurologist outpatient in 2-3 weeks.
[2021-09-27 20:14] LABS: Glucose,Whole Blood 165 mg/dL (75-99)
[2021-09-27] MEDS: DONEPEZIL 10 MG TAB PO SCH (20:25)
[2021-09-27] MEDS ORDERED: QUEtiapine 50 MG TAB PO SCH (21:00)
[2021-09-28 06:02] LABS: Glucose,Whole Blood 139 mg/dL (75-99)
[2021-09-28] MEDS: LEVOTHYROXINE 25 MCG TAB PO SCH (06:45)
[2021-09-28] MEDS: INSULIN ASPART (NovoLOG) 100 UNIT/ML VIAL SQ SCH ×2 (06:46→13:16)
[2021-09-28] MEDS ORDERED: buPROPion 75 MG TAB PO SCH (09:00)
[2021-09-28] MEDS: HEPARIN SODIUM,PORCINE/PF 5,000 UNIT/0.5 ML SYRINGE SQ SCH (10:30)
[2021-09-28] MEDS: ATORVASTATIN 40 MG TAB PO SCH (10:30)
[2021-09-28] MEDS: ASPIRIN 325 MG TAB PO SCH (10:30)
[2021-09-28] MEDS: PANTOPRAZOLE 40 MG TABLET PO SCH (10:31)
[2021-09-28] MEDS: busPIRone HCl 10 MG TAB PO SCH ×2 (10:33→15:10)
[2021-09-28] MEDS: CARBIDOPA-LEVODOPA 25-100 MG 1 EACH TAB PO SCH ×2 (10:33→15:10)
[2021-09-28] MEDS: TAMSULOSIN 0.4 MG CAP.ER.24H PO SCH (10:34)
--- NOTE | 2021-09-28 10:34 | P.DS ---
Providers Date of admission: 09/25/21 22:45 Expected date of discharge: 09/28/21 Attending physician: Daren Jordan MD Consults: 09/25/21 22:48 Consult Physician Routine Consulting Provider: Scott Aquino Consult Reason/Comments: code stroke Do you want consulting provider notified?: Yes Primary care physician: [facility] Course: The patient is a 75-year-old male with a PMH of Parkinson's, coronary artery disease, type II DM, hyperlipidemia, and hypothyroidism who was brought into the emergency room by his family due to slurring of speech. Patient was evaluated in the ER and admitted to the hospital for further management of his medical problems noted below. 1. Episode of slurred speech with concerns about possible TIA, ruled out as MRI is normal. computed tomography scan of the brain and CT angiogram of the head and neck unremarkable. Patient was seen and evaluated by neurology. Started on aspirin daily. Echocardiogram showed preserved ejection fraction with no reported intracardiac shunt. 2. Xerostomia: Clearly secondary to polypharmacy as patient is on Sinemet, Wellbutrin, and Seroquel which each one of them can cause xerostomia. Had a pr olonged discussion with the patient and his regarding risk and benefit of current regimen and they insisted to keep him on the same medications and follow-up with neurology outpatient which is fine with me. 3. Chronic medical problems: Type 2 diabetes, hypertension, hyperlipidemia, underlying Parkinson's disease, history of coronary artery disease Today, I reviewed his medication list and lab work results. Patient was noted to have elevated blood pressure throughout this hospital stay. His home dose of midodrine was changed from 30 mg a times a day to 10 mg 3 times daily Patient follow-up with neurology at [facility] regarding his underlying Parkinson's. Patient would be discharged home in a stable condition Physical exam: General: The patient is awake and alert, in no distress Eye: there is normal conjunctiva bilaterally. Neck: The neck is supple, there is no JVD. Cardiovascular: Normal S1-S2, no S3-S4, no murmurs. Respiratory: Lungs clear to auscultation bilaterally Gastrointestinal: Abdomen is soft, nontender Musculoskeletal: There is no pedal edema. Neurological:. Speech is normal. Skin: Skin is warm and dry Patient Condition at Discharge: Fair Plan - Discharge Summary Discharge Rx Participant: No New Discharge Prescriptions: New Aspirin EC [Ecotrin Low Dose] 81 mg PO DAILY #30 tab Midodrine [ProAmatine] 10 mg PO TID #30 tablet Continue metFORMIN HCL [Glucophage] 500 mg PO BID@0900,1700 buPROPion [Wellbutrin] 75 mg PO DAILY QUEtiapine [SEROquel] 50 mg PO HS@2100 Levothyroxine Sodium 25 mcg PO DAILY Carbidopa-Levodopa 25-100 mg [Sinemet 25-100 mg] 3 tab PO QID Atorvastatin [Lipitor] 40 mg PO DAILY@0900 Donepezil [Aricept] 10 mg PO HS@2100 Tamsulosin [Flomax] 0.4 mg PO DAILY Polyethylene Glycol 3350 [Clearlax] 17 gm PO DAILY PRN PRN Reason: Constipation busPIRone HCl [Buspar] 10 mg PO TID@0900,1200,2100 L.acidoph,Paracasei, B.lactis [Probiotic] 1 cap PO DAILY@0900 Amantadine HCl [Gocovri] 274 mg PO HS@2100 Omeprazole [PriLOSEC] 20 mg PO BID@0900,1700 Ondansetron [Zofran] 4 mg PO Q12HR PRN PRN Reason: Nausea Discontinued Midodrine HCl [ProAmatine] 30 mg PO TID@0900,1200,1700 Discharge Medication List Atorvastatin [Lipitor] 40 mg PO DAILY@0900 04/19/18 [History] Carbidopa-Levodopa 25-100 mg [Sinemet 25-100 mg] 3 tab PO QID 04/19/18 [History] Levothyroxine Sodium 25 mcg PO DAILY 04/19/18 [History] QUEtiapine [SEROquel] 50 mg PO HS@2100 04/19/18 [History] buPROPion [Wellbutrin] 75 mg PO DAILY 04/19/18 [History] metFORMIN HCL [Glucophage] 500 mg PO BID@0900,1700 04/19/18 [History] Donepezil [Aricept] 10 mg PO HS@2100 05/04/20 [History] Polyethylene Glycol 3350 [Clearlax] 17 gm PO DAILY PRN 05/04/20 [History] Tamsulosin [Flomax] 0.4 mg PO DAILY 05/04/20 [History] Amantadine HCl [Gocovri] 274 mg PO HS@2100 09/26/21 [History] L.acidoph,Paracasei, B.lactis [Probiotic] 1 cap PO DAILY@0900 09/26/21 [History] Omeprazole [PriLOSEC] 20 mg PO BID@0900,1700 09/26/21 [History] Ondansetron [Zofran] 4 mg PO Q12HR PRN 09/26/21 [History] busPIRone HCl [Buspar] 10 mg PO TID@0900,1200,2100 09/26/21 [History] Aspirin EC [Ecotrin Low Dose] 81 mg PO DAILY #30 tab 09/28/21 [Rx] Midodrine [ProAmatine] 10 mg PO TID #30 tablet 09/28/21 [Rx] Follow up [facility]ment([facility]Ref[facility] - Papi Noriega MD [Primary Care Provider] - 1-2 days Discharge Disposition: HOME WITH HOME HEALTH SERVICES
[2021-09-28 11:54] LABS: Glucose,Whole Blood 124 mg/dL (75-99)
[2021-09-28] MEDS: MIDODRINE 5 MG TAB PO SCH ×2 (13:16→15:11)
[2021-09-28 15:28] VITALS: BP 165/85; PULSE 72; RESP 18; TEMP 98
--- NOTE | 2021-09-30 12:46 | CDI ---
Documentation Clarification Form Date: 09/30/2021 12:39:13 PM From: Kem Tompkins Admit Date: 09/25/2021 10:45:00 PM Patient Name: Rashard Lopez Visit Number: [id number] Discharge Date: 09/28/2021 03:33:00 PM ATTENTION: The Clinical Documentation Specialists (CDI) and [facility] Coding Staff appreciate your assistance in clarifying documentation. Please respond to the clarification below the line at the bottom and electronically sign. The CDI & [facility] Coding staff will review the response and follow-up if needed. Please note: Queries are made part of the Legal Health Record. If you have any questions, please contact the author of this message via ITS. Dr. Renzo Jordan The patients principal diagnosis the diagnosis that was chiefly responsible for the admission - has not been clearly identified and clarification is requested. The last progress note indicates probable TIA with negative MRI. The patient presented with slurred speech and dysphagia. Your discharge summary appears to rule out TIA by MRI the way it is written. History/Risk factors: xerostemia Clinical Indicators: Lab findings: Radiology findings: MRI negative Vital Signs: Treatment: Consults: In your professional opinion, can you please clarify which diagnosis, after study, was the reason chiefly responsible for the admission? [ ] TIA with CVA ruled out by MRI [ ] xerostemia [ X ] Other, please specify ___Slurred speech___ [ ] Unable to determine [ ] CVA despite negative MRI MTDD
== END 2021-09-28 15:33 | disposition home health service (06) | DRG 93 ==
LOC: EC 19:57 → 3SCARD 22:45
PROVIDERS: ADMIT Internal Medicine; ATTEND Internal Medicine
DX: R47.81 Slurred speech (principal); E11.9 Type 2 diabetes mellitus without complications; E78.5 Hyperlipidemia, unspecified; E89.0 Postprocedural hypothyroidism; F02.80 Dementia in other diseases classified elsewhere, unspecified severity, without behavioral disturbance, psychotic disturbance, mood disturbance, and anxiety; F32.A Depression, unspecified; F41.9 Anxiety disorder, unspecified; G20 Parkinson's disease; H40.9 Unspecified glaucoma; I25.10 Atherosclerotic heart disease of native coronary artery without angina pectoris; I11.9 Hypertensive heart disease without heart failure; I49.1 Atrial premature depolarization; R13.10 Dysphagia, unspecified; R29.701 NIHSS score 1; Z20.822 Contact with and (suspected) exposure to COVID-19; Z79.84 Long term (current) use of oral hypoglycemic drugs; Z79.890 Hormone replacement therapy; Z79.899 Other long term (current) drug therapy; Z80.1 Family history of malignant neoplasm of trachea, bronchus and lung; Z82.49 Family history of ischemic heart disease and other diseases of the circulatory system; Z87.442 Personal history of urinary calculi; Z95.1 Presence of aortocoronary bypass graft; Z96.653 Presence of artificial knee joint, bilateral; R39.15 Urgency of urination; K11.7 Disturbances of salivary secretion
CPT/HCPCS: 36415; 70450; 70496; 70498; 70551; 71045; 80048; 80053; 80061; 82607; 82746; 83036; 83921; 84484; 85025; 86235; 87635; 93005; 93306; 96360; 99291

== ENCOUNTER 2022-07-30 10:22 | Observation (INO) | payer MEDICARE ==
--- NOTE | 2022-07-30 11:22 | ED ---
Dizziness HPI - General Chief Complaint: Dizziness Stated Complaint: hypertension, dizziness, lightheaded Time Seen by Provider: 07/30/22 11:06 Source: patient Mode of arrival: ambulatory Limitations: no limitations - History of Present Illness Initial Comments: Patient is a 76-year-old male presenting with chief complaint of dizziness. Patient states he's been experiencing ongoing dizziness since starting mirtazapine on 07/22. He recently discontinued the medication, however he is still experiencing dizziness. Patient also states he has been experiencing some on and off chest pain, he has history of CAD and CABG. He has been feeling "shaky" and using his walker recently, which she has not had to use for several years. His daughter at bedside states that in the evening his blood pressure has been in the 200s over 100s, and his heart rate has been consistently low. This caused her to present to the ER with him for further evaluation. Patient denies any shortness of breath, palpitations, nausea, vomiting, abdominal pain, dysuria, hematuria, urgency, frequency, melena, hematochezia, URI-like symptoms, or recent falls. - Related Data Home Medications Medication Instructions Recorded Confirmed Atorvastatin [Lipitor] 40 mg PO DAILY 04/19/18 07/30/22 Carbidopa-Levodopa 25-100 mg 3 tab PO QID@08,,,04/19/18 07/30/22 [Sinemet 25-100 mg] Levothyroxine Sodium 25 mcg PO HS 04/19/18 07/30/22 metFORMIN HCL [Glucophage] 500 mg PO DAILY 04/19/18 07/30/22 Donepezil [Aricept] 10 mg PO HS 05/04/20 07/30/22 polyethylene glycoL 3350 [Clearlax] 17 gm PO DAILY PRN 05/04/20 07/30/22 L.acidoph,Paracasei, B.lactis 1 cap PO DAILY 09/26/21 07/30/22 [Probiotic] Omeprazole [PriLOSEC] 20 mg PO AC-BID 09/26/21 07/30/22 amantadine HCL [Gocovri] 274 mg PO HS 09/26/21 07/30/22 busPIRone HCl [Buspar] 10 mg PO TID@0900,1200,2100 09/26/21 07/30/22 Aspirin EC [Ecotrin Low Dose] 81 mg PO HS 07/30/22 07/30/22 Cetirizine HCl 10 mg PO BID@0900,1800 07/30/22 07/30/22 Clobetasol Propionate [Clobex 1 applic TOPICAL HS 07/30/22 07/30/22 Grass Range 0.05%] Dorzolamide 2% [Trusopt 2%] 1 drop BOTH EYES TID@0900,1200,2100 07/30/22 07/30/22 Latanoprost/Pf [Latanoprost 0.005% 1 drop BOTH EYES HS 07/30/22 07/30/22 Eye Drop] QUEtiapine [SEROquel] 50 mg PO HS 07/30/22 07/30/22 Timolol 0.5% Ophth Soln [Timoptic 1 drop BOTH EYES BID 07/30/22 07/30/22 0.5% Ophth Soln] Vit C/E/Zn/Coppr/Lutein/Zeaxan 1 cap PO BID 07/30/22 07/30/22 [Preservision Areds 2 Softgel] Allergies Allergy/AdvReac Type Severity Reaction Status Date / Time No Known Allergies Allergy Verified 05/28/20 09:28 Review of Systems ROS Statement: Those systems with pertinent positive or pertinent negative responses have been documented in the HPI. ROS Other: All systems not noted in ROS Statement are negative. 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 Bilateral total knee replacement; Bilateral Ankle surgery. Thyroidectomy, hemrrohoidectomy. Numerous sinus surgeries. Cervical fusion; Thoracic fusion; Lumbar laminectomy Past Anesthesia/Blood Transfusion Reactions: No Reported Reaction Past Psychological History: Anxiety, Depression Smoking Status: Never smoker Past Alcohol Use History: None Reported Past Drug Use History: None Reported - Past Family History Mother Family Medical History: Dementia, Pneumonia Father Family Medical History: Cancer Additional Family Medical History / Comment(s): lung cancer Sister(s) Family Medical History: Cancer Additional Family Medical History / Comment(s): brain and lung cancer Son(s) Family Medical History: Coronary Artery Disease (CAD), Myocardial Infarction ([place]) Daughter(s) History Unknown: Yes Family Medical History: No Reported History General Exam Limitations: no limitations General appearance: alert, in no apparent distress Head exam: Present: atraumatic, normocephalic, normal inspection Eye exam: Present: normal appearance, EOMI. Absent: scleral icterus, periorbital swelling Neck exam: Present: normal inspection Respiratory exam: Present: normal lung sounds bilaterally. Absent: respiratory distress, wheezes, rales, rhonchi, stridor Cardiovascular Exam: Present: normal rhythm, bradycardia, normal heart sounds. Absent: systolic murmur, diastolic murmur, rubs, gallop, clicks Neurological exam: Present: alert, oriented X3, CN II-XII intact Psychiatric exam: Present: normal affect, normal mood Skin exam: Present: warm, dry, intact, normal color. Absent: rash Course Vital Signs 07/30/22 07/30/22 07/30/22 10:45 12:08 15:03 Temperature 97.5 F L Pulse Rate 55 L 50 L 49 L Respiratory 18 18 18 Rate Blood Pressure 150/77 139/80 166/81 O2 Sat by Pulse 99 96 98 Oximetry EKG Findings - EKG Comments: EKG Findings:: Sinus bradycardia with occasional sinus bradycardia with occasional PVCs at rate of 51. IL interval 160. QRS duration 117. QT/QTc 441/417. Medical Decision Making - Medical Decision Making Patient is a 76-year-old male presenting with chief complaint of dizziness. Symptoms have been ongoing since 07/22. Patient also states at home he has been noticing a low heart rate and elevated blood pressure readings, particularly at night, and he admits to some intermittent chest pain. Physical examination is WNL. CBC shows no leukocytosis or anemia. Troponin is 0.013, this is consistent with previous values. UA shows no blood or infectious process. CT of the brain and chest x-ray showed no acute process. I spoke with Dr. Varma who agreed to admit the patient. I discussed these findings and plan with the patient, he was agreeable. I discussed this case with my attending Dr. Kong. - Lab Data Result diagrams: 07/30/22 11:28 07/30/22 11:28 Lab Results 07/30/22 07/30/22 07/30/22 Range/Units 11:28 11:28 11:28 WBC 8.7 (3.8-10.6) k/uL RBC 5.56 (4.30-5.90) m/uL Hgb 15.5 (13.0-17.5) gm/dL Hct 48.0 (39.0-53.0) % MCV 86.3 (80.0-100.0) fL MCH 27.8 (25.0-35.0) pg MCHC 32.2 (31.0-37.0) g/dL RDW 14.5 (11.5-15.5) % Plt Count 209 (150-450) k/uL MPV 8.1 Neutrophils % 74 % Lymphocytes % 13 % Monocytes % 5 % Eosinophils % 7 % Basophils % 0 % Neutrophils # 6.4 (1.3-7.7) k/uL Lymphocytes # 1.1 (1.0-4.8) k/uL Monocytes # 0.4 (0-1.0) k/uL Eosinophils # 0.7 (0-0.7) k/uL Basophils # 0.0 (0-0.2) k/uL PT 11.1 (9.0-12.0) sec INR 1.0 (<1.2) Sodium (137-145) mmol/L Potassium (3.5-5.1) mmol/L Chloride (98-107) mmol/L Carbon Dioxide (22-30) mmol/L Anion Gap mmol/L BUN (9-20) mg/dL Creatinine (0.66-1.25) mg/dL Est GFR (CKD-EPI)AfAm (>60 ml/min/1.73 sqM) Est GFR (CKD-EPI)NonAf (>60 ml/min/1.73 sqM) Glucose (74-99) mg/dL Plasma Lactic Acid Guillermo (0.7-2.0) mmol/L Calcium (8.4-10.2) mg/dL Total Bilirubin (0.2-1.3) mg/dL AST (17-59) U/L ALT (4-49) U/L Alkaline Phosphatase (38-126) U/L Troponin I (0.000-0.034) ng/mL Total Protein (6.3-8.2) g/dL Albumin (3.5-5.0) g/dL Urine Color Yellow Urine Appearance Clear (Clear) Urine pH 5.5 (5.0-8.0) Ur Specific [place] 1.014 (1.001-1.035) Urine Protein Trace H (Negative) Urine Glucose (UA) Negative (Negative) Urine Ketones Negative (Negative) Urine Blood Negative (Negative) Urine Nitrite Negative (Negative) Urine Bilirubin Negative (Negative) Urine Urobilinogen <2.0 (<2.0) mg/dL Ur Leukocyte Esterase Negative (Negative) 07/30/22 07/30/22 07/30/22 Range/Units 11:28 11:28 11:28 WBC (3.8-10.6) k/uL RBC (4.30-5.90) m/uL Hgb (13.0-17.5) gm/dL Hct (39.0-53.0) % MCV (80.0-100.0) fL MCH (25.0-35.0) pg MCHC (31.0-37.0) g/dL RDW (11.5-15.5) % Plt Count (150-450) k/uL MPV Neutrophils % % Lymphocytes % % Monocytes % % Eosinophils % % Basophils % % Neutrophils # (1.3-7.7) k/uL Lymphocytes # (1.0-4.8) k/uL Monocytes # (0-1.0) k/uL Eosinophils # (0-0.7) k/uL Basophils # (0-0.2) k/uL PT (9.0-12.0) sec INR (<1.2) Sodium 139 (137-145) mmol/L Potassium 4.1 (3.5-5.1) mmol/L Chloride 104 (98-107) mmol/L Carbon Dioxide 24 (22-30) mmol/L Anion Gap 11 mmol/L BUN 23 H (9-20) mg/dL Creatinine 0.89 (0.66-1.25) mg/dL Est GFR (CKD-EPI)AfAm >90 (>60 ml/min/1.73 sqM) Est GFR (CKD-EPI)NonAf 82 (>60 ml/min/1.73 sqM) Glucose 187 H (74-99) mg/dL Plasma Lactic Acid Guillermo 1.8 (0.7-2.0) mmol/L Calcium 9.3 (8.4-10.2) mg/dL Total Bilirubin 0.8 (0.2-1.3) mg/dL AST 19 (17-59) U/L ALT 11 (4-49) U/L Alkaline Phosphatase 130 H (38-126) U/L Troponin I 0.013 (0.000-0.034) ng/mL Total Protein 6.8 (6.3-8.2) g/dL Albumin 4.4 (3.5-5.0) g/dL Urine Color Urine Appearance (Clear) Urine pH (5.0-8.0) Ur Specific [place] (1.001-1.035) Urine Protein (Negative) Urine Glucose (UA) (Negative) Urine Ketones (Negative) Urine Blood (Negative) Urine Nitrite (Negative) Urine Bilirubin (Negative) Urine Urobilinogen (<2.0) mg/dL Ur Leukocyte Esterase (Negative) Disposition Clinical Impression: Chest pain, Symptomatic bradycardia Disposition: ADMITTED IP TO THIS HOSP Condition: Fair Time of Disposition: 13:13
[2022-07-30] MEDS ORDERED: SODIUM CHLORIDE 0.9% 1,000 ML IV STA (11:23)
[2022-07-30 11:44] LABS: Basophils % (A) 0 %; Eosinophils # (A) 0.7 k/uL (0-0.7); Eosinophils % (A) 7 %; HGB 15.5 gm/dL (13.0-17.5); Lymphocytes # (A) 1.1 k/uL (1.0-4.8); Lymphocytes % (A) 13 %; MCH 27.8 pg (25.0-35.0); MCHC 32.2 g/dL (31.0-37.0); MCV 86.3 fL (80.0-100.0); Mean Platelet Volume 8.1; Monocytes # (A) 0.4 k/uL (0-1.0); Monocytes % (A) 5 %; Neutrophils # (A) 6.4 k/uL (1.3-7.7); Neutrophils % (A) 74 %; Platelet Count 209 k/uL (150-450); RBC 5.56 m/uL (4.30-5.90); RDW 14.5 % (11.5-15.5); WBC 8.7 k/uL (3.8-10.6)
[2022-07-30 11:53] LABS: Prothrombin Time 11.1 sec (9.0-12.0)
--- NOTE | 2022-07-30 11:59 | CT ---
EXAMINATION TYPE: CT brain wo con DATE OF EXAM: 07/30/2022 COMPARISON: 09/25/2021 HISTORY: 76-year-old male Dizziness TECHNIQUE: Examination was done in axial plane without intravenous contrast. Coronal and sagittal r econstructions performed. CT DLP: 1219.4 mGycm Automated exposure control for dose reduction was used. FINDINGS: There is no evidence of acute intracranial hemorrhage, acute ischemic changes, mass, mass-effect, or extra-axial fluid collection. There is no effacement of cerebral sulci or basal subarachnoid cister ns. There is no hydrocephalus. There is no midline shift. Donovan-white matter distinction is preserv ed. Mild periventricular white matter hypodensities unchanged. Suspect prior FESS, sinonasal surgery. Residual mild mucosal thickening throughout the ethmoid air ce lls. Orbits and globes appear intact. Mastoid air cells are well pneumatized. Anterior leftward nasal septal deviation. Degenerative change both TMJs. IMPRESSION: Similar mild burden of chronic small vessel ischemic disease. No acute intracranial abnormality seen.
[2022-07-30 12:02] LABS: ALT 11 U/L (4-49); AST 19 U/L (17-59); African American GFR (CKD) >90 (>60 ml/min/1.73 sqM); Albumin 4.4 g/dL (3.5-5.0); Alkaline Phosphatase 130 U/L (38-126); Anion Gap 11 mmol/L; Blood Urea Nitrogen 23 mg/dL (9-20); Calcium 9.3 mg/dL (8.4-10.2); Carbon Dioxide 24 mmol/L (22-30); Chloride 104 mmol/L (98-107); Glucose 187 mg/dL (74-99); Non-African American GFR(CKD) 82 (>60 ml/min/1.73 sqM); Potassium 4.1 mmol/L (3.5-5.1); Sodium 139 mmol/L (137-145); Total Bilirubin 0.8 mg/dL (0.2-1.3); Total Protein 6.8 g/dL (6.3-8.2)
--- NOTE | 2022-07-30 12:10 | XR ---
EXAMINATION TYPE: XR chest 2V DATE OF EXAM: 07/30/2022 COMPARISON: None HISTORY: 76-year-old male dizziness, chest pain TECHNIQUE: PA and lateral views FINDINGS: Right-sided posterior thoracic spine fusion changes at 2 levels in the midthoracic spine. ACDF hardwa re. Median sternotomy wires with post-CABG clips. Heart upper limits of normal in size. Cholecystecto my clips. Nodule, likely nipple shadow at the left base. No consolidation or pleural effusion. Narrow ing of the subacromial space on both sides may reflect underlying chronic rotator cuff tears. IMPRESSION: Post-CABG changes. Heart upper limits of normal in size. No definite acute process.
[2022-07-30 12:49] LABS: Appearance,Urine Clear (Clear); Bilirubin,Urine Negative (Negative); Blood,Urine Negative (Negative); Color,Urine Yellow; Glucose,Urine (UA) Negative (Negative); Ketones,Urine Negative (Negative); Leukocyte Esterase,Urine Negative (Negative); Nitrite,Urine Negative (Negative); PH, Urine 5.5 (5.0-8.0); Protein,Urine Trace (Negative); Specific Gravity,Urine 1.014 (1.001-1.035); Urobilinogen,Urine <2.0 mg/dL (<2.0)
[2022-07-30] MEDS ORDERED: NALOXONE 0.4 MG/ML 1 ML VIAL IV PRN (13:26)
[2022-07-30] MEDS ORDERED: ACETAMINOPHEN TAB 325 MG TAB PO PRN (14:44)
[2022-07-30] MEDS ORDERED: polyethylene glycoL 3350 17 GM POWD.PACK PO PRN (14:47)
--- NOTE | 2022-07-30 14:52 | P.HPIM ---
History of Present Illness H&P Date: 07/30/22 Chief Complaint: dizziness Patient is a 76-year-old male with past medical history of Parkinson's disease, CAD status post CABG, type 2 diabetes, dyslipidemia, hypothyroidism presenting with postural lightheadedness. He claims he has been dealing with multiple GI issues, sees , and his diabetes has been worsening recently. Due to the stress at home with his being diagnosed with dementia as well as dealing with his own medical problems, he sought help from neuropsychologist. He was prescribed mirtazapine on 07/22. He took the medication for 5 days and started to develop postural lightheadedness. He then stopped the mirtazapine but cont inued to have symptoms. He claims that his symptoms only present when he gets out of the bed and stands up. She denies any shortness of breath or palpitations at that time. He occasionally gets chest pain while lying down. He claims he feels like a pressure on the left side of his chest, not present at the moment. He continues to have chronic GI issues which includes lower abdomen pain as well as occasional vomiting. He occasionally has constipation as well. He denies any urinary symptoms. He denies any recent sick contacts or travel history. In the ED, his vital signs were stable and his blood pressure was 150/77. His labs were mostly unremarkable. His CT head showed chronic small vessel ischemic disease, no acute abnormalities. Chest x-ray did not show any acute processes. EKG showed sinus bradycardia. Pertinent positives and negatives as discussed in HPI, a complete review of systems was performed and all other systems are negative. Patient seen and examined at bedside. Vital signs reviewed General: nontoxic, no distress, appears at stated age Derm: warm, dry Head: atraumatic, normocephalic, symmetric Eyes: EOMI, no lid lag, anicteric sclera, pupils equal round reactive to light ENT: Nose and ears atraumatic, no thrush, no pharyngeal erythema Neck: No thyromegaly, trachea midline, supple Mouth: no lip lesion, mucus membranes moist Cardiovascular: S1S2 reg, no murmur, no edema, capillary refill less than 2 seconds Lungs: clear to auscultation bilateral, no rhonchi, no rales, no wheeze, no accessory muscle use Abdominal: soft, nontender to palpation, no guarding, no appreciable organomegaly, normal bowel sounds Ext: no gross muscle atrophy, muscle strength muscle strength 5 out of 5 in all 4 extremities, no contractures Neuro: CN II-XII grossly intact, light touch intact all 4 extremities, finger to nose within normal limits, resting tremor bilateral upper extremities, more prominent on the left Psych: Alert, oriented, appropriate affect Assessment/Plan: Postural dizziness Presyncope -Differential includes medication induced vs cardiac vs orthostasis vs Parkinson's disease -Orthostatic vitals pending -Patient has had poor oral intake recently, s/p IV fluids -Last echo in 10/02 showed LVEF 55-60%, unremarkable valvular disease -Repeat echo pending -Recent use of mirtazapine could possibly have contributed to his current symptoms -Use of quetiapine might also be having an adverse effect due to anct icholinergic properties - will decrease dose to prevent any withdrawals from discontinuation -Less likely symptomatic bradycardia, heart rate in the 50s with no AV block -If unremarkable workup, likely secondary to Parkinson's disease -Falls precautions Chest pain, rule out ACS -EKG shows sinus bradycardia -Echo pending -A1c, lipid panel, TSH -Cardiology consult -Troponin negative 1, repeat pending -Aspirin and statin Diabetes -A1c pending -Sliding-scale insulin -hold metformin Chronic medical problems: CAD Dyslipidemia Hypertension Hypothyroidism Parkinson's disease Glaucoma -Continue home medication The patient is admitted with an anticipated less than 2 midnight stay for evaluation of postural dizziness. Surrogate decision-maker: Daughter CODE STATUS: Full code DVT prophylaxis: Lovenox Anticipated discharge date: 07/31/[address]: Home A total of 45 minutes was spent on the care of this complex patient more than 50% of the time was spent in counseling and care coordination. 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 Bilateral total knee replacement; Bilateral Ankle surgery. Thyroidectomy, hemrrohoidectomy. Numerous sinus surgeries. Cervical fusion; Thoracic fusion; Lumbar laminectomy Past Anesthesia/Blood Transfusion Reactions: No Reported Reaction Past Psychological History: Anxiety, Depression Smoking Status: Never smoker Past Alcohol Use History: None Reported Past Drug Use History: None Reported - Past Family History Mother Family Medical History: Dementia, Pneumonia Father Family Medical History: Cancer Additional Family Medical History / Comment(s): lung cancer Sister(s) Family Medical History: Cancer Additional Family Medical History / Comment(s): brain and lung cancer Son(s) Family Medical History: Coronary Artery Disease (CAD), Myocardial Infarction ([place]) Daughter(s) History Unknown: Yes Family Medical History: No Reported History Medications and Allergies Home Medications Medication Instructions Recorded Confirmed Type Atorvastatin [Lipitor] 40 mg PO DAILY 04/19/18 07/30/22 History Carbidopa-Levodopa 25-100 mg 3 tab PO QID@08,12,18,21 04/19/18 07/30/22 History [Sinemet 25-100 mg] Levothyroxine Sodium 25 mcg PO HS 04/19/18 07/30/22 History metFORMIN HCL [Glucophage] 500 mg PO DAILY 04/19/18 07/30/22 History Donepezil [Aricept] 10 mg PO HS 05/04/20 07/30/22 History polyethylene glycoL 3350 [Clearlax] 17 gm PO DAILY PRN 05/04/20 07/30/22 History L.acidoph,Paracasei, B.lactis 1 cap PO DAILY 09/26/21 07/30/22 History [Probiotic] Omeprazole [PriLOSEC] 20 mg PO AC-BID 09/26/21 07/30/22 History amantadine HCL [Gocovri] 274 mg PO HS 09/26/21 07/30/22 History busPIRone HCl [Buspar] 10 mg PO TID@0900,1200,2100 09/26/21 07/30/22 History Aspirin EC [Ecotrin Low Dose] 81 mg PO HS 07/30/22 07/30/22 History Cetirizine HCl 10 mg PO BID@0900,1800 07/30/22 07/30/22 History Clobetasol Propionate [Clobex 1 applic TOPICAL HS 07/30/22 07/30/22 History [place] 0.05%] Dorzolamide 2% [Trusopt 2%] 1 drop BOTH EYES TID@0900,1200,2100 07/30/22 History Latanoprost/Pf [Latanoprost 0.005% 1 drop BOTH EYES HS 07/30/22 07/30/22 History Eye Drop] QUEtiapine [SEROquel] 50 mg PO HS 07/30/22 07/30/22 History Timolol 0.5% Ophth Soln [Timoptic 1 drop BOTH EYES BID 07/30/22 07/30/22 History 0.5% Ophth Soln] Vit C/E/Zn/Coppr/Lutein/Zeaxan 1 cap PO BID 07/30/22 07/30/22 History [Preservision Areds 2 Softgel] Allergies Allergy/AdvReac Type Severity Reaction Status Date / Time No Known Allergies Allergy Verified 05/28/20 09:28 Physical Exam Vitals: Vital Signs Temp Pulse Resp BP Pulse Ox 07/30/22 12:08 50 L 18 139/80 96 07/30/22 10:45 97.5 F L 55 L 18 150/77 99 Intake and Output 07/29/22 07/30/22 07/30/22 22:59 06:59 14:59 Other: Weight 71.668 kg Results CBC & Chem 7: 07/30/22 11:28 07/30/22 11:28 Labs: Abnormal Lab Results - Last 24 Hours (Table) 07/30/22 07/30/22 Range/Units 11:28 11:28 BUN 23 H (9-20) mg/dL Glucose 187 H (74-99) mg/dL Alkaline Phosphatase 130 H (38-126) U/L Urine Protein Trace H (Negative)
[2022-07-30] MEDS ORDERED: DEXTROSE 50% SYRINGE 50 ML IVP PRN ×2 (15:31)
[2022-07-30] MEDS: SODIUM CHLORIDE 0.9% 1,000 ML IV SCH (15:44)
[2022-07-30] MEDS: CARBIDOPA-LEVODOPA 25-100 MG 1 EACH TAB PO SCH ×2 (16:59→21:06)
[2022-07-30] MEDS: LORATADINE 10 MG TAB PO SCH (17:15)
[2022-07-30 17:48] LABS: Glucose,Whole Blood 121 mg/dL (70-110)
[2022-07-30] MEDS: INSULIN ASPART (NovoLOG) 100 UNIT/ML VIAL SQ SCH ×2 (17:49→21:07)
[2022-07-30] MEDS ORDERED: cloNIDine HCL 0.2 MG TAB PO PRN (19:26)
[2022-07-30 20:11] LABS: Glucose,Whole Blood 158 mg/dL (70-110)
[2022-07-30] MEDS: AMANTADINE HCL 137 MG PO SCH (21:05)
[2022-07-30] MEDS: VIT A,C & E-LUTEIN-MINERALS 1 EACH TAB PO SCH (21:06)
[2022-07-30] MEDS: busPIRone HCl 10 MG TAB PO SCH (21:06)
[2022-07-30] MEDS: LEVOTHYROXINE 25 MCG TAB PO SCH (21:06)
[2022-07-30] MEDS: DONEPEZIL 10 MG TAB PO SCH (21:06)
[2022-07-30] MEDS: ASPIRIN 81 MG PO SCH (21:06)
[2022-07-30] MEDS: QUEtiapine 25 MG TAB PO SCH (21:06)
[2022-07-30] MEDS: DORZOLAMIDE HCL 2% DROPS 10 ML BTL BOTH EYES SCH (21:07)
[2022-07-30] MEDS: LATANOPROST 0.005% OPHTH DROPS 2.5 ML BTL BOTH EYES SCH (21:07)
[2022-07-30] MEDS: TIMOLOL 0.5% OPHTH DROPS 5 ML BTL BOTH EYES SCH (21:08)
[2022-07-30] MEDS: CLOBETASOL PROPIONATE TOPICAL SCH (21:08)
[2022-07-31] MEDS: SODIUM CHLORIDE 0.9% 1,000 ML IV SCH ×2 (03:20→16:32)
[2022-07-31 07:05] LABS: Glucose,Whole Blood 102 mg/dL (70-110)
[2022-07-31] MEDS: INSULIN ASPART (NovoLOG) 100 UNIT/ML VIAL SQ SCH ×4 (08:36→22:05)
[2022-07-31] MEDS: PANTOPRAZOLE 40 MG TABLET PO SCH (08:58)
[2022-07-31] MEDS: CARBIDOPA-LEVODOPA 25-100 MG 1 EACH TAB PO SCH ×4 (08:58→20:43)
[2022-07-31] MEDS: VIT A,C & E-LUTEIN-MINERALS 1 EACH TAB PO SCH ×2 (08:59→20:43)
[2022-07-31] MEDS: busPIRone HCl 10 MG TAB PO SCH ×3 (08:59→20:43)
[2022-07-31] MEDS: LORATADINE 10 MG TAB PO SCH ×2 (08:59→17:47)
[2022-07-31] MEDS: ATORVASTATIN 40 MG TAB PO SCH (08:59)
[2022-07-31] MEDS: amLODIPine 5 MG TAB PO SCH (09:00)
[2022-07-31] MEDS ORDERED: LORATADINE 10 MG TAB PO SCH (09:00)
[2022-07-31] MEDS: ENOXAPARIN 40 MG/0.4 ML SYRINGE SQ SCH (09:01)
[2022-07-31] MEDS: LACTOBACILLUS ACIDOPH & BULGAR 1 EACH PACKET PO SCH (09:01)
[2022-07-31] MEDS: DORZOLAMIDE HCL 2% DROPS 10 ML BTL BOTH EYES SCH ×3 (09:03→20:43)
[2022-07-31] MEDS: TIMOLOL 0.5% OPHTH DROPS 5 ML BTL BOTH EYES SCH ×2 (09:03→20:44)
[2022-07-31 09:38] LABS: African American GFR (CKD) 99.2 (60.0-200.0); Blood Urea Nitrogen 18.4 mg/dL (9.0-27.0); Calcium 8.4 mg/dL (8.7-10.3); Carbon Dioxide 22.8 mmol/L (20.0-27.5); Chloride 110 mmol/L (96-109); Chol/HDL Ratio 2.41 Ratio; Glucose 108 mg/dL (70-110); LDL Cholesterol,Calculated 43.1 mg/dL (0.0-131.0); Magnesium 1.9 mg/dL (1.5-2.4); Non-African American GFR(CKD) 85.6 (60.0-200.0); Potassium 3.9 mmol/L (3.5-5.5); Sodium 141 mmol/L (135-145); VLDL Calculation 17.08 mg/dL (5.00-40.00)
--- NOTE | 2022-07-31 09:39 | P.CRDCN ---
"History of Present Illness History of present illness: HISTORY OF PRESENTING ILLNESS This is a pleasant 76-year-old male past medical history significant for coronary artery disease with prior CABG, hypertension, dyslipidemia, hypothyroidism, type 2 diabetes, obstructive sleep apnea, Parkinson's disease. We have been asked to see in consultation for chest pain. Patient presents to the emergency department with complaints of lightheadedness and dizziness. Patient states that he was recently prescribed mirtazapine and experienced ongoing dizziness. He states that he recently discontinued this medication and continued to have dizziness, headache and some lightheadedness. The time patient has dizziness and lightheadedness when he gets out of bed and stands up. He states also been having some chronic GI issues, lower abdominal pain and occasional nausea and vomiting. He states that his blood pressure was elevated at home and his heart rate has been running low. He denies any chest pain, syncope or loss of consciousness. He denies any palpitations, symptoms of orthopnea PND. He denies any tobacco use. DIAGNOSTICS * EKG reveals sinus bradycardia, occasional PVC, nonspecific ST abnormalities. No evidence of acute ischemia noted. * Brain CT reported no acute intracranial abnormality, similar mild burden of chronic small vessel ischemic disease. * Chest x-ray with no acute heart failure or acute pulmonary process. * Telemetry tracings indicate sinus mechanism with heart rates in the 50s60s. * Labs, CBC unremarkable, troponin negative 3, sodium 139, potassium 4.1, BUN 23, serum creatinine 0.8, UA negative * Current home medications include aspirin 81 mg nightly, atorvastatin 40 mg daily * Echocardiogram 09/2021 revealed EF 5560 percent, mild mitral regurgitation, mild tricuspid regurgitation REVIEW OF SYSTEMS At the time of my exam: CONSTITUTIONAL: Denies fever or chills. CARDIOVASCULAR: Denies chest pain, shortness of breath, orthopnea, PND or palpitations. RESPIRATORY: Denies cough. GASTROINTESTINAL: Denies abdominal pain, diarrhea, constipation, nausea or vomiting. MUSCULOSKELETAL: Denies myalgias. NEUROLOGIC: +lightheadedness, +|dizziness, Denies numbness, tingling, headache or weakness. ENDOCRINE: Denies fatigue, weight change, polydipsia or polyurina. GENITOURINARY: Denies burning, hematuria or urgency with micturation. HEMATOLOGIC: Denies history of anemia or bleeding. PHYSICAL EXAMINATION Blood pressure 172/88, heart rate 62, afebrile, saturation 97% on room air CONSTITUTIONAL: No apparent distress. HEENT: Head is normocephalic. Pupils are equal, round. Sclerae anicteric. Mucous membranes of the mouth are moist. No JVD. No carotid bruit. CHEST EXAMINATION: Lungs are clear to auscultation. No chest wall tenderness is noted on palpation or with deep breathing. HEART EXAMINATION: Regular rate and rhythm. S1, S2 heard. No murmurs, gallops or rub. ABDOMEN: Soft, nontender. Positive bowel sounds. EXTREMITIES: 2+ peripheral pulses, no lower extremity edema and no calf tenderness. SKIN:warm, dry NEUROLOGIC EXAMINATION: Patient is awake, alert and oriented x3. ASSESSMENT Postural dizziness and lightheadedness, possibly related to Parkinson's disease, vs. recent use of mirtazapine, vs. uncontrolled hypertension Sinus bradycardia Parkinson's disease Type 2 diabetes Coronary artery disease with prior CABG Hypertension Dyslipidemia Hypothyroidism Objective sleep apnea Dyslipidemia PLAN An acute coronary event has been ruled out with no EKG evidence of ischemia and negative cardiac enzymes. Obtain 2D echocardiogram and doppler study to assess cardiac structure and function. Start amlodipine 5mg daily Monitor orthostatics Check TSH Continue cardiac telemetry Further recommendations based on clinical course Thank you kindly for this consultation. Nurse practitioner note has been reviewed by physician. Signing provider agrees with the documented findings, assessment, and plan of care. 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 Bilateral total knee replacement; Bilateral Ankle surgery. Thyroidectomy, hemrrohoidectomy. Numerous sinus surgeries. Cervical fusion; Thoracic fusion; Lumbar laminectomy Past Anesthesia/Blood Transfusion Reactions: No Reported Reaction Past Psychological History: Anxiety, Depression Smoking Status: Never smoker Past Alcohol Use History: None Reported Past Drug Use History: None Reported - Past Family History Mother Family Medical History: Dementia, Pneumonia Father Family Medical History: Cancer Additional Family Medical History / Comment(s): lung cancer Sister(s) Family Medical History: Cancer Additional Family Medical History / Comment(s): brain and lung cancer Son(s) Family Medical History: Coronary Artery Disease (CAD), Myocardial Infarction ([place]) Daughter(s) History Unknown: Yes Family Medical History: No Reported History Medications and Allergies Home Medications Medication Instructions Recorded Confirmed Type Atorvastatin [Lipitor] 40 mg PO DAILY 04/19/18 07/30/22 History Carbidopa-Levodopa 25-100 mg 3 tab PO QID@08,,,04/19/18 07/30/22 History [Sinemet 25-100 mg] Levothyroxine Sodium 25 mcg PO HS 04/19/18 07/30/22 History metFORMIN HCL [Glucophage] 500 mg PO DAILY 04/19/18 07/30/22 History Donepezil [Aricept] 10 mg PO HS 05/04/20 07/30/22 History polyethylene glycoL 3350 [Clearlax] 17 gm PO DAILY PRN 05/04/20 07/30/22 History L.acidoph,Paracasei, B.lactis 1 cap PO DAILY 09/26/21 07/30/22 History [Probiotic] Omeprazole [PriLOSEC] 20 mg PO AC-BID 09/26/21 07/30/22 History amantadine HCL [Gocovri] 274 mg PO HS 09/26/21 07/30/22 History busPIRone HCl [Buspar] 10 mg PO TID@0900,1200,2100 09/26/21 07/30/22 History Aspirin EC [Ecotrin Low Dose] 81 mg PO HS 07/30/22 07/30/22 History Cetirizine HCl 10 mg PO BID@0900,1800 07/30/22 07/30/22 History Clobetasol Propionate [Clobex 1 applic TOPICAL HS 07/30/22 07/30/22 History [place] 0.05%] Dorzolamide 2% [Trusopt 2%] 1 drop BOTH EYES TID@0900,1200,2100 07/30/22 07/30/22 History Latanoprost/Pf [Latanoprost 0.005% 1 drop BOTH EYES HS 07/30/22 07/30/22 History Eye Drop] QUEtiapine [SEROquel] 50 mg PO HS 07/30/22 07/30/22 History Timolol 0.5% Ophth Soln [Timoptic 1 drop BOTH EYES BID 07/30/22 07/30/22 History 0.5% Ophth Soln] Vit C/E/Zn/Coppr/Lutein/Zeaxan 1 cap PO BID 07/30/22 07/30/22 History [Preservision Areds 2 Softgel] Allergies Allergy/AdvReac Type Severity Reaction Status Date / Time No Known Allergies Allergy Verified 05/28/20 09:28 Physical Exam Vitals: Vital Signs Temp Pulse Pulse Pulse Pulse Pulse Resp 07/31/22 07:00 97.7 F 52 L 18 07/31/22 01:00 97.6 F 53 L 18 07/30/22 19:06 98.6 F 50 L 16 07/30/22 15:46 97.4 F L 48 L 49 L 56 L 18 07/30/22 15:03 49 L 18 07/30/22 12:08 50 L 18 07/30/22 10:45 97.5 F L 55 L 18 BP BP BP BP BP Pulse Ox 07/31/22 07:00 172/88 97 07/31/22 01:00 156/73 96 07/30/22 19:06 181/86 94 L 07/30/22 15:46 176/79 174/83 144/83 07/30/22 15:03 166/81 98 07/30/22 12:08 139/80 96 07/30/22 10:45 150/77 99 Intake and Output 07/30/22 07/31/22 07/31/22 22:59 06:59 14:59 Intake Total 120 Balance 120 Intake: Oral 120 Other: # Voids 1 1 Results 07/30/22 11:28 07/30/22 11:28 Cardiac Enzymes 07/30/22 07/30/22 07/30/22 Range/Units 11:28 11:28 14:44 AST 19 (17-59) U/L Troponin I 0.013 <0.012 (0.000-0.034) ng/mL 07/30/22 Range/Units 17:45 AST (17-59) U/L Troponin I <0.012 (0.000-0.034) ng/mL Coagulation 07/30/22 Range/Units 11:28 PT 11.1 (9.0-12.0) sec CBC 07/30/22 Range/Units 11:28 WBC 8.7 (3.8-10.6) k/uL RBC 5.56 (4.30-5.90) m/uL Hgb 15.5 (13.0-17.5) gm/dL Hct 48.0 (39.0-53.0) % Plt Count 209 (150-450) k/uL Comprehensive Metabolic Panel 07/30/22 Range/Units 11:28 Sodium 139 (137-145) mmol/L Potassium 4.1 (3.5-5.1) mmol/L Chloride 104 (98-107) mmol/L Carbon Dioxide 24 (22-30) mmol/L BUN 23 H (9-20) mg/dL Creatinine 0.89 (0.66-1.25) mg/dL Glucose 187 H (74-99) mg/dL Calcium 9.3 (8.4-10.2) mg/dL AST 19 (17-59) U/L ALT 11 (4-49) U/L Alkaline Phosphatase 130 H (38-126) U/L Total Protein 6.8 (6.3-8.2) g/dL Albumin 4.4 (3.5-5.0) g/dL Current Medications Generic Name Dose Route Start Last Admin Trade Name Freq PRN Reason Stop Dose Admin Acetaminophen 650 mg 07/30/22 14:44 Acetaminophen Tab 325 Mg Tab PO Q6HR PRN Mild Pain or Fever > 100.5 Amlodipine Besylate 5 mg 07/31/22 09:00 Amlodipine 5 Mg Tab PO DAILY DEBI Aspirin 81 mg 07/30/22 21:00 07/30/22 21:06 Aspirin 81 Mg PO 81 mg HS DEBI Administration Atorvastatin Calcium 40 mg 07/31/22 09:00 Atorvastatin 40 Mg Tab PO DAILY DEBI Buspirone HCl 10 mg 07/30/22 21:00 07/30/22 21:06 Buspirone Hcl 10 Mg Tab PO 10 mg TID@0900,1200,2100 DBEI Administration Carbidopa/Levodopa 3 each 07/30/22 18:00 07/30/22 21:06 Carbidopa-Levodopa 25-100 Mg 1 Each Tab PO 3 each QID@08,12,18,21 DEBI Administration Dextrose/Water 25 ml 07/30/22 15:31 Dextrose 50% Syringe 50 Ml IVP PER PROTOCOL PRN Hypoglycemia Protocol Dextrose/Water 50 ml 07/30/22 15:31 Dextrose 50% Syringe 50 Ml IVP PER PROTOCOL PRN Hypoglycemia Protocol Donepezil HCl 10 mg 07/30/22 21:00 07/30/22 21:06 Donepezil 10 Mg Tab PO 10 mg HS DEBI Administration Dorzolamide HCl 1 drops 07/30/22 21:00 07/30/22 21:07 Dorzolamide Hcl 2% Drops 10 Ml Btl BOTH EYES 1 drops TID@0900,1200,2100 DEBI Administration Enoxaparin Sodium 40 mg 07/31/22 09:00 Enoxaparin 40 Mg/0.4 Ml Syringe SQ DAILY DEBI Sodium Chloride 1,000 mls @ 75 mls/hr 07/30/22 13:30 07/31/22 03:20 Saline 0.9% IV Not Given .[id number] DEBI Insulin Aspart 0 unit 07/30/22 17:30 07/30/22 21:07 Insulin Aspart (Novolog) 100 Unit/Ml Vial SQ 1 unit ACHS DEBI Administration Protocol Lactobacillus Acidoph/[place] 1 each 07/31/22 09:00 Lactobacillus Acidoph & [place] 1 Each Packet PO DAILY DEBI Latanoprost 1 drops 07/30/22 21:00 07/30/22 21:07 Latanoprost 0.005% Ophth Drops 2.5 Ml Btl BOTH EYES 1 drops HS DEBI Administration Levothyroxine Sodium 25 mcg 07/30/22 21:00 07/30/22 21:06 Levothyroxine 25 Mcg Tab PO 25 mcg HS DEBI Administration Loratadine 10 mg 07/30/22 18:00 07/30/22 17:15 Loratadine 10 Mg Tab PO 10 mg BID@0900,1800 DEBI Administration Multivitamins/Minerals 1 each 07/30/22 21:00 07/30/22 21:06 Vit A,C & P-Wxfisi-Fqywauvl 1 Each Tab PO 1 each BID DEBI Administration Naloxone HCl 0.2 mg 07/30/22 13:26 Naloxone 0.4 Mg/Ml 1 Ml Vial IV Q2M PRN Opioid Reversal Non Formulary Drug ( 274 mg 07/30/22 21:00 07/30/22 21:05 Amantadine Hcl [ PO 274 mg Gocovri Er] 137 Mg HS DEBI Administration Capsule) Non-Formulary Medication 1 applic 07/30/22 21:00 07/30/22 21:08 Clobetasol Propionate [Clobex [place] 0.05%] TOPICAL Not Given HS DEBI Pantoprazole Sodium 40 mg 07/31/22 07:30 Pantoprazole 40 Mg Tablet PO AC-BRKFST DEBI Polyethylene Glycol 17 gm 07/30/22 14:47 Polyethylene Glycol 3350 17 Gm Powd.Pack PO DAILY PRN Constipation Quetiapine Fumarate 25 mg 07/30/22 21:00 07/30/22 21:06 Quetiapine 25 Mg Tab PO 25 mg HS DEBI Administration Timolol Maleate 1 drops 07/30/22 21:00 07/30/22 21:08 Timolol 0.5% Ophth Drops 5 Ml Btl BOTH EYES 1 drops BID DEBI Administration Intake and Output 07/30/22 07/31/22 07/31/22 22:59 06:59 14:59 Intake Total 120 Balance 120 Intake: Oral 120 Other: # Voids 1 1 07/30/22 11:28 07/30/22 11:28"
--- NOTE | 2022-07-31 11:47 | P.PN ---
Subjective Progress Note Date: 07/31/22 Chief Complaint: Dizziness Hospital course: Patient is a very pleasant 76-year-old male with past medical history of Parkinson's disease, CAD status post CABG, type 2 diabetes, dyslipidemia, and hypothyroidism. He presented to the hospital on 07/30/20 with a chief complaint of postural lightheadedness accompanied by chest discomfort. Patient reported he has been dealing with worsening diabetes as well as multiple GI issues and follows up outpatient with . Patient also states that due to increased stress at home with his recently being diagnosed with dementia as well as dealing with his own medical problems, he sought help from neuropsychologist and was prescribed mirtazapine on 07/22. Patient states that he took the medication for 5 days and began experiencing postural lightheadedness so he stopped the mirtazapine thinking this was the cause, but then he continued to have these symptoms. He claimed that his symptoms were only present when he was standing. He denied any shortness of breath or palpitations, but also reported that he occasionally had been experiencing a pressure-like pain to his chest while lying down. Patient underwent full evaluation in the emergency department. An EKG was completed revealing sinus bradycardia with occasional PVCs at [address] head revealed similar mild burden of chronic small vessel ischemic disease with no acute intercranial abnormalities reported. Chest x-ray negative for acute cardiopulmonary process revealing post-CABG changes. CBC and CMP were unremarkable showing no significant abnormalities. Urinalysis negative for infection. TSH normal findings at 2.530 and lipid profile unremarkable. Hemo globin A1c was elevated at 7.2%. Physical examination: Patient seen and fully evaluated at bedside this morning. He reports postural lightheadedness/dizziness has resolved but continues to have intermittent chest pain/discomfort. Patient has been experiencing hypertensive urgency with morning blood pressure 181/86. Cardiology starting patient on amlodipine 5 mg daily and we will monitor blood pressure and evaluate for improvement. Orthostatic vitals positive. Patient will likely be discharged within the next 24 hours. Chest pain possibly resulting from uncontrolled hypertension. Patie nt to follow up outpatient with Dr. Paredes as scheduled for GI complaints. General: non toxic, no distress, appears at stated age Derm: warm, dry Head: atraumatic, normocephalic, symmetric Eyes: EOMI, no lid lag, anicteric sclera Mouth: no lip lesion, mucus membranes moist Cardiovascular: S1S2 reg, systolic murmur, positive posterior tibial pulse bilateral, Lungs: CTA bilateral, no rhonchi, no rales , no accessory muscle use Abdominal: soft, nontender to palpation, no guarding, no appreciable o rganomegaly Ext: no gross muscle atrophy, no edema, no contractures Neuro: CN II-XI grossly intact, no focal neuro deficits Psych: Alert, oriented, appropriate affect Assessment/Plan: Postural dizziness Hypertensive urgency in patient with history of hypertension Presyncope Chest pain, acute coronary event ruled out. History of CAD status post CABG Parkinson's disease Sinus bradycardia -Orthostatics positive for postural changes. -Echocardiogram to be completed -Continue with gentle IV fluid hydration -EVELIO hose -Recent use of mirtazapine could possibly have contributed to his current sympto ms -Use of quetiapine might also be having an adverse effect due to ancticholinergic properties -dose was decreased to prevent any withdrawals from discontinuation -Less likely symptomatic bradycardia, heart rate in the 50s with no AV block -If unremarkable workup, likely secondary to Parkinson's disease -Fall precautions -Patient with moderate uncontrolled hypertension and was started on amlodipine 5 mg daily by cardiology Chronic medical problems: CAD status post CABG Hypertension Dyslipidemia -Continue cardiac medication regimen with aspirin and atorvastatin. -Patient was started on amlodipine 5 mg daily secondary to hypertensive urgency Parkinson's disease -Continue medication regimen with Aricept and carbidopa levodopa Type II [id number] Diabetes -A1c 7.2% -Metformin held and patient placed on glycemic protocol with NovoLog Sliding- scale insulin Hypothyroidism -Continue daily medication regimen with levothyroxine Glaucoma -Continue home medication with prescription ophthalmic drops CODE STATUS: Full code DVT prophylaxis: Lovenox Anticipated discharge date: Within the next [address]: Home A total of 35 minutes was spent on the care of this complex patient more than 50% of the time was spent in counseling and care coordination. I reviewed the documentation as provided by the KENJI above, who is the original author of this note. I agree with the documented assessment and plan, with the following changes: none Objective - Vital Signs Vital signs: Vital Signs Temp 97.7 F 07/31/22 07:00 Pulse 52 L 07/31/22 07:00 Resp 18 07/31/22 07:00 BP 172/88 07/31/22 07:00 Pulse Ox 97 07/31/22 07:00 FiO2 Intake & Output 07/30/22 07/31/22 07/31/22 18:59 06:59 18:59 Intake Total 120 Balance 120 Weight 71.668 kg Intake: Oral 120 Other: # Voids 1 - Labs CBC & Chem 7: 07/30/22 11:28 07/31/22 05:32 Labs: Abnormal Lab Results - Last 24 Hours (Table) 07/30/22 07/30/22 07/30/22 Range/Units 11:28 11:28 17:46 Chloride (96-109) mmol/L Anion Gap (10.00-18.00) mmol/L BUN 23 H (9-20) mg/dL BUN/Creatinine Ratio (12.00-20.00) Ratio Glucose 187 H (74-99) mg/dL POC Glucose (mg/dL) 121 H (70-110) mg/dL Hemoglobin A1c (0.0-6.0) % Calcium (8.7-10.3) mg/dL Alkaline Phosphatase 130 H (38-126) U/L Urine Protein Trace H (Negative) 07/30/22 07/31/22 07/31/22 Range/Units 20:10 05:32 05:32 Chloride 110 H (96-109) mmol/L Anion Gap 8.20 L (10.00-18.00) mmol/L BUN (9-20) mg/dL BUN/Creatinine Ratio 23.00 H (12.00-20.00) Ratio Glucose (74-99) mg/dL POC Glucose (mg/dL) 158 H (70-110) mg/dL Hemoglobin A1c 7.2 H (0.0-6.0) % Calcium 8.4 L (8.7-10.3) mg/dL Alkaline Phosphatase (38-126) U/L Urine Protein (Negative)
[2022-07-31 12:22] LABS: Glucose,Whole Blood 203 mg/dL (70-110)
[2022-07-31 17:11] LABS: Glucose,Whole Blood 112 mg/dL (70-110)
--- NOTE | 2022-07-31 17:55 | CA ---
Transthoracic Echo Report Name: Rashard Lopez Age: 76 Gender: M : 1945 Exam Date: 07/31/2022 10:26 Exam Location: [facility] Ht (in): 70 Wt (lb): 158 Ordering Physician: Bladimir Vasques MD Attending/Referring Phys: [employer] Operator Gayathri Douglas RDCS Procedure CPT: Indications: Pre-syncope Cardiac Hx: Technical Quality: Fair Contrast 1: Total Dose (mL): Contrast 2: Total Dose (mL): MEASUREMENTS (Male / Female) Normal Values 2D ECHO LV Diastolic Diameter PLAX 4.4 cm 4.2 - 5.9 / 3.9 - 5.3 cm LV Systolic Diameter PLAX 2.4 cm IVS Diastolic Thickness 1.8 cm 0.6 - 1.0 / 0.6 - 0.9 cm LVPW Diastolic Thickness 1.4 cm 0.6 - 1.0 / 0.6 - 0.9 cm LV Relative Wall Thickness 0.7 RV Internal Dim ED PLAX 3.1 cm LA Volume 92.4 cm??? 18 - 58 / 22 - 52 cm??? M-MODE Aortic Root Diameter MM 3.6 cm LA Systolic Diameter MM 4.3 cm LA Ao Ratio MM 1.2 AV Cusp Separation MM 2.3 cm DOPPLER AV Peak Velocity 123.1 cm/s AV Peak Gradient 6.1 mmHg LVOT Peak Velocity 108.6 cm/s LVOT Peak Gradient 4.7 mmHg MV Area PHT 2.0 cm??? Mitral E Point Velocity 55.1 cm/s Mitral A Point Velocity 71.6 cm/s Mitral E to A Ratio 0.8 MV Deceleration Time 383.8 ms MV E' Velocity 7.0 cm/s Mitral E to MV E' Ratio 7.9 TR Peak Velocity 218.6 cm/s TR Peak Gradient 19.1 mmHg Right Ventricular Systolic Press 23.2 mmHg FINDINGS Left Ventricle Severely increased septal wall thickness. Normal left ventricular systolic function with no obvious regional wall motion abnormalities. Abnormal (paradoxical) septal motion consistent with postoperative state. Left ventricular ejection fraction is estimated at 55-60 %. Right Ventricle Normal right ventricular size and function. Right ventricular systolic pressure within normal limits. Right Atrium Normal right atrial size. Left Atrium Moderate left atrial dilatation. Mitral Valve Structurally normal mitral valve. Mild mitral regurgitation. Aortic Valve No aortic valve stenosis or regurgitation. Tricuspid Valve Structurally normal tricuspid valve. Mild tricuspid regurgitation. Pulmonic Valve Structurally normal pulmonic valve. Trace pulmonic regurgitation. Pericardium No pericardial effusion. Aorta Normal size aortic root and proximal ascending aorta. CONCLUSIONS Normal LV systolic function Moderate left atrial enlargement Mild mitral regurgitation Mild tricuspid regurgitation Previewed by: Dr. Carlos Paredes MD (Electronically Signed) Final Date: 31 July 2022 17:54
[2022-07-31] MEDS: AMANTADINE HCL 137 MG PO SCH (20:42)
[2022-07-31] MEDS: QUEtiapine 25 MG TAB PO SCH (20:43)
[2022-07-31] MEDS: ASPIRIN 81 MG PO SCH (20:43)
[2022-07-31] MEDS: DONEPEZIL 10 MG TAB PO SCH (20:43)
[2022-07-31] MEDS: LEVOTHYROXINE 25 MCG TAB PO SCH (20:43)
[2022-07-31] MEDS: LATANOPROST 0.005% OPHTH DROPS 2.5 ML BTL BOTH EYES SCH (20:44)
[2022-07-31] MEDS: CLOBETASOL PROPIONATE TOPICAL SCH (20:45)
[2022-07-31 21:36] LABS: Glucose,Whole Blood 199 mg/dL (70-110)
[2022-08-01] MEDS: SODIUM CHLORIDE 0.9% 1,000 ML IV SCH (03:57)
[2022-08-01 07:21] LABS: Glucose,Whole Blood 110 mg/dL (70-110)
[2022-08-01] MEDS: INSULIN ASPART (NovoLOG) 100 UNIT/ML VIAL SQ SCH (08:21)
[2022-08-01 08:24] VITALS: BP 177/83; PULSE 48; RESP 18; TEMP 97.4
[2022-08-01] MEDS: ENOXAPARIN 40 MG/0.4 ML SYRINGE SQ SCH (08:57)
[2022-08-01] MEDS: CARBIDOPA-LEVODOPA 25-100 MG 1 EACH TAB PO SCH (09:12)
[2022-08-01] MEDS: LACTOBACILLUS ACIDOPH & BULGAR 1 EACH PACKET PO SCH (09:13)
[2022-08-01] MEDS: PANTOPRAZOLE 40 MG TABLET PO SCH (09:13)
[2022-08-01] MEDS: busPIRone HCl 10 MG TAB PO SCH (09:13)
[2022-08-01] MEDS: VIT A,C & E-LUTEIN-MINERALS 1 EACH TAB PO SCH (09:13)
[2022-08-01] MEDS: amLODIPine 5 MG TAB PO SCH (09:13)
[2022-08-01] MEDS: ATORVASTATIN 40 MG TAB PO SCH (09:13)
[2022-08-01] MEDS: LORATADINE 10 MG TAB PO SCH (09:14)
[2022-08-01] MEDS: DORZOLAMIDE HCL 2% DROPS 10 ML BTL BOTH EYES SCH (09:14)
[2022-08-01] MEDS: TIMOLOL 0.5% OPHTH DROPS 5 ML BTL BOTH EYES SCH (09:15)
--- NOTE | 2022-08-01 10:06 | P.PN ---
Subjective This is a pleasant 76-year-old male past medical history significant for coronary artery disease with prior CABG, hypertension, dyslipidemia, hypothy roidism, type 2 diabetes, obstructive sleep apnea, Parkinson's disease. He follows with Dr. Pierre. We have been asked to see in consultation for chest pain. Patient presents to the emergency department with complaints of lightheadedness and dizziness. Patient states that he was recently prescribed mirtazapine and experienced ongoing dizziness. He states that he recently discontinued this medication and continued to have dizziness, headache and some lightheadedness. The time patient has dizziness and lightheadedness when he gets out of bed and stands up. He states also been having some chronic GI issues, lower abdominal pain and occasional nausea and vomiting. He states that his blood pressure was elevated at home and his heart rate has been running low. He denies any chest pain, syncope or loss of consciousness. He denies any palpitations, symptoms of orthopnea PND. He denies any tobacco use. 08/01 Patient seen and examined at bedside, no acute distress. His main concern stat ing that he had incontinence overnight, secondary to the amount of IV fluids he was given. He continues to have some dizziness with standing and postural changes. His telemetry reviewed and his HR are in the mid/high 40s-50s. Episodes of 7beat run of NSVT. Occasional PVCs. He is not on any AV shelly blocking agents. He was started on amlodipine 5mg daily for BP control. BP 150s-160s systolic yesterday, but 177/83 this morning. Echocardiogram revealed EF 5560 percent, moderate left atrial enlargement, mild mitral regurgitation, mild tricuspid regurgitation. PHYSICAL EXAMINATION Vitals reviewed CONSTITUTIONAL: No apparent distress. HEENT: Neck Supple. No JVD. CHEST EXAMINATION: Lungs are clear to auscultation. No chest wall tenderness is noted on palpation or with deep breathing. HEART EXAMINATION: Regular rate and rhythm. S1, S2 heard. No murmurs, gallops or rub. ABDOMEN: Soft, nontender. Positive bowel sounds. EXTREMITIES: 2+ peripheral pulses, no lower extremity edema and no calf tenderness. SKIN:warm, dry NEUROLOGIC EXAMINATION: Patient is awake, alert and oriented x3. ASSESSMENT Postural dizziness and lightheadedness, possibly related to Parkinson's disease, vs. recent use of mirtazapine, vs. uncontrolled hypertension Sinus bradycardia Parkinson's disease Type 2 diabetes Coronary artery disease with prior CABG Hypertension Dyslipidemia Hypothyroidism Objective sleep apnea Dyslipidemia PLAN An acute coronary event has been ruled out with no EKG evidence of ischemia and negative cardiac enzymes. Echocardiogram revealed EF 5560 %, moderate left atrial enlargement, mild mitral regurgitation, mild tricuspid regurgitation. Telemetry reviewed with HR mid/high 40s-50s. Patient is not on any AV shelly blocking agents. Continue amlodipine 5mg daily From a cardiology perspective, patient is stable for discharge home. FOllow up with Dr. Pierre outpatient, his primary library clerical assistant, He has an appointment on 08/03/2022. Nurse practitioner note has been reviewed by physician. Signing provider agrees with the documented findings, assessment, and plan of care. Objective - Vital Signs Vital signs: Vital Signs Temp 97.5 F L 08/01/22 00:03 Pulse 45 L 08/01/22 00:03 Resp 16 08/01/22 00:03 BP 169/80 08/01/22 00:03 Pulse Ox 97 08/01/22 00:03 FiO2 Intake & Output 07/31/22 08/01/22 08/01/22 18:59 06:59 18:59 Intake Total 480 Balance 480 Intake: Oral 480 Other: Voiding Method Toilet Diaper Incontinent # Voids 1 1 - Labs CBC & Chem 7: 07/30/22 11:28 07/31/22 05:32 Labs: Abnormal Lab Results - Last 24 Hours (Table) 07/31/22 07/31/22 07/31/22 Range/Units 05:32 05:32 12:20 Chloride 110 H (96-109) mmol/L Anion Gap 8.20 L (10.00-18.00) mmol/L BUN/Creatinine Ratio 23.00 H (12.00-20.00) Ratio POC Glucose (mg/dL) 203 H (70-110) mg/dL Hemoglobin A1c 7.2 H (0.0-6.0) % Calcium 8.4 L (8.7-10.3) mg/dL 07/31/22 07/31/22 Range/Units 17:10 21:35 Chloride (96-109) mmol/L Anion Gap (10.00-18.00) mmol/L BUN/Creatinine Ratio (12.00-20.00) Ratio POC Glucose (mg/dL) 112 H 199 H (70-110) mg/dL Hemoglobin A1c (0.0-6.0) % Calcium (8.7-10.3) mg/dL
--- NOTE | 2022-08-01 10:27 | P.DS ---
Providers Date of admission: 07/30/22 14:02 Expected date of discharge: 08/01/22 Attending physician: Bj Abraham MD Consults: 07/30/22 13:26 Consult Physician Urgent Consulting Provider: [facility] Consult Reason/Comments: Symptomatic bradycardia, chest pain Do you want consulting provider notified?: Yes Primary care physician: [facility] Course: Discharge Diagnosis: Postural dizziness, improved. Likely secondary to orthostatic hypotension believed to be caused by Parkinson's disease. Orthostatic hypotension, resolved status post treatment of resting hypertension. Believed to be caused by Parkinson's disease. Hypertensive urgency in patient with history of hypertension. Blood pressures improved. Patient discharged home on amlodipine 5 mg daily. Presyncope. Likely secondary to orthostatic hypotension believed to be caused by Parkinson's disease. Chest pain, acute coronary event ruled out.Completed echocardiogram which revealed an EF of 55-60% with mild mitral and tricuspid regurgitation. Cardiology recommending avoiding of all AV shelly blocking agents and started patient on amlodipine for treatment of his hypertension. Cardiology recommending patient follow-up outpatient with his waiter/waitress take out Dr. Villar as scheduled on 08/03/22. History of CAD status post CABG. Continue daily medication regimen with aspirin and atorvastatin. Parkinson's disease. Patient to follow up outpatient with his neurologist at [facility] as discussed continue medication regimen with Aricept and carbidopa levodopa. Sinus bradycardia, cardiology evaluated ruling out acute coronary event. Completed echocardiogram which revealed an EF of 55-60% with mild mitral and tricuspid regurgitation. Cardiology recommending avoiding of all AV shelly blocking agents and started patient on amlodipine for treatment of his hypertension. Cardiology recommending patient follow-up outpatient with his c ardiologist Dr. Villar as scheduled on 08/03/22. Dyslipidemia. Continue daily medication regimen with atorvastatin. Type II [id number] Diabetes. A1c 7.2%. Metformin increased to 500 mg twice daily. Hypothyroidism. Continue daily medication regimen with levothyroxine Glaucoma. Continue home medication with prescription ophthalmic drops Hospital Course: Patient is a very pleasant 76-year-old male with past medical history of Parkinson's disease, CAD status post CABG, type 2 diabetes, dyslipidemia, and hypothyroidism. He presented to the hospital on 07/30/20 with a chief complaint of postural lightheadedness accompanied by chest discomfort. Patient reported he has been dealing with worsening diabetes as well as multiple GI issues and follows up outpatient with . Patient also states that due to increased stress at home with his recently being diagnosed with dementia as well as dealing with his own medical problems, he sought help from neuropsychologist and was prescribed mirtazapine on 07/22. Patient states that he took the medication for 5 days and began experiencing postural lightheadedness so he stopped the mirtazapine thinking this was the cause, but then he continued to have these symptoms. He claimed that his symptoms were only present when he was standing. He denied any shortness of breath or palpitations, but also reported that he occasionally had been experiencing a pressure-like pain to his chest while lying down. Patient underwent full evaluation in the emergency department. An EKG was completed revealing sinus bradycardia with occasional PVCs at [address] head revealed similar mild burden of chronic small vessel ischemic disease with no acute intercranial abnormalities reported. Chest x-ray negative for acute cardiopulmonary process revealing post-CABG changes. CBC and CMP were unremarkable showing no significant abnormalities. Urinalysis negative for infection. TSH normal findings at 2.530 and lipid profile unremarkable. Hemoglobin A1c was elevated at 7.2% and Metformin was increased to twice daily. Patient was admitted under our services with consultation to cardiology. He was started on amlodipine for treatment of his hypertensive urgency and resting hypertension. Patient was also found to have positive orthostatic hypotension and was hydrated and again resting hypertension was treated. Orthostatic hypotension resolved status post hydration and treatment of resting hypertension. Echocardiogram was completed revealing a normal EF of 55-60% with mild tricuspid and mitral regurgitation and moderate left atrial enlargement. Lipid profile was unremarkable. Patient reported significant improvement in postural dizziness and denying any further complaints at this time. Patient is medically stable for discharge home. Patient instructed that he will need to follow up outpatient with his PCP in 1-2 days, neurologist/Parkinson's specialist at [facility] as discussed and will also need to follow up outpatient with his waiter/waitress take out Dr. Villar as scheduled on 08/03/22. Physical examination: General: non toxic, no distress, appears at stated age Derm: warm, dry Head: atraumatic, normocephalic, symmetric Eyes: EOMI, no lid lag, anicteric sclera Mouth: no lip lesion, mucus membranes moist Cardiovascular: S1S2 reg, systolic murmur, positive posterior tibial pulse bilateral, Lungs: CTA bilateral, no rhonchi, no rales , no accessory muscle use Abdominal: soft, nontender to palpation, no guarding, no appreciable organomegaly Ext: no gross muscle atrophy, no edema, no contractures Neuro: CN II-XI grossly intact, no focal neuro deficits. Patient had noted tremor of left hand. Psych: Alert, oriented, appropriate affect A total of 39 minutes of time were spent preparing this complex discharge summary. Pt was discharged on 08/01/22 at 8:20 AM. Patient Condition at Discharge: Stable Plan - Discharge Summary New Discharge Prescriptions: New amLODIPine [Norvasc] 5 mg PO DAILY 60 Days #60 tab Continue Levothyroxine Sodium 25 mcg PO HS Carbidopa-Levodopa 25-100 mg [Sinemet 25-100 mg] 3 tab PO QID@08,,18, Atorvastatin [Lipitor] 40 mg PO DAILY Donepezil [Aricept] 10 mg PO HS polyethylene glycoL 3350 [Clearlax] 17 gm PO DAILY PRN PRN Reason: Constipation busPIRone HCl [Buspar] 10 mg PO TID@0900,1200,2100 L.acidoph,Paracasei, B.lactis [Probiotic] 1 cap PO DAILY Latanoprost/Pf [Latanoprost 0.005% Eye Drop] 1 drop BOTH EYES HS Vit C/E/Zn/Coppr/Lutein/Zeaxan [Preservision Areds 2 Softgel] 1 cap PO BID Aspirin EC [Ecotrin Low Dose] 81 mg PO HS amantadine HCL [Gocovri] 274 mg PO HS Omeprazole [PriLOSEC] 20 mg PO AC-BID Cetirizine HCl 10 mg PO BID@0900,1800 Clobetasol Propionate [Clobex [place]wyn 0.05%] 1 applic TOPICAL HS Dorzolamide 2% [Trusopt 2%] 1 drop BOTH EYES TID@0900,1200,2100 Timolol 0.5% Ophth Soln [Timoptic 0.5% Ophth Soln] 1 drop BOTH EYES BID Changed metFORMIN HCL [Glucophage] 500 mg PO BID 30 Days #60 tab QUEtiapine [SEROquel] 25 mg PO HS #0 Discharge Medication List Atorvastatin [Lipitor] 40 mg PO DAILY 04/19/18 [History] Carbidopa-Levodopa 25-100 mg [Sinemet 25-100 mg] 3 tab PO QID@08,12,18,21 04/19/18 [History] Levothyroxine Sodium 25 mcg PO HS 04/19/18 [History] Donepezil [Aricept] 10 mg PO HS 05/04/20 [History] polyethylene glycoL 3350 [Clearlax] 17 gm PO DAILY PRN 05/04/20 [History] L.acidoph,Paracasei, B.lactis [Probiotic] 1 cap PO DAILY 09/26/21 [History] Omeprazole [PriLOSEC] 20 mg PO AC-BID 09/26/21 [History] amantadine HCL [Gocovri] 274 mg PO HS 09/26/21 [History] busPIRone HCl [Buspar] 10 mg PO TID@0900,1200,2100 09/26/21 [History] Aspirin EC [Ecotrin Low Dose] 81 mg PO HS 07/30/22 [History] Cetirizine HCl 10 mg PO BID@0900,1800 07/30/22 [History] Clobetasol Propionate [Clobex Berwyn 0.05%] 1 applic TOPICAL HS 07/30/22 [History] Dorzolamide 2% [Trusopt 2%] 1 drop BOTH EYES TID@0900,1200,2100 07/30/22 [History] Latanoprost/Pf [Latanoprost 0.005% Eye Drop] 1 drop BOTH EYES HS 07/30/22 [History] Timolol 0.5% Ophth Soln [Timoptic 0.5% Ophth Soln] 1 drop BOTH EYES BID 07/30/22 [History] Vit C/E/Zn/Coppr/Lutein/Zeaxan [Preservision Areds 2 Softgel] 1 cap PO BID 07/30/22 [History] QUEtiapine [SEROquel] 25 mg PO HS #0 08/01/22 [Rx] amLODIPine [Norvasc] 5 mg PO DAILY 60 Days #60 tab 08/01/22 [Rx] metFORMIN HCL [Glucophage] 500 mg PO BID 30 Days #60 tab 08/01/22 [Rx] Follow up Appointment(s)/Referral(s): Papi Noriega MD [Primary Care Provider] - 1-2 days Leia Pierre MD [REFERRING] - 08/03/22 10:30 am (Appointment is with TORSTEN STORM) Patient Instructions/Handouts: Basic Carbohydrate Counting (DC), Hypotension (DC), Near Syncope (DC), Type 2 Diabetes in the Older Adult (DC) Activity/Diet/Wound Care/Special Instructions: Activity: As tolerated. Take breaks as needed. Diet: Heart healthy and carb consistent diet. Avoid salts, or foods with hidden salts such as canned or boxed foods and frozen dinners. Extra salt makes your heart work harder and traps the fluid in your body for longer. Special Instructions: Take all of your medications as directed and remember to keep all of your doctor's appointments and follow-up as needed. Thank you for allowing us to participate in your care, it was truly a pleasure having you for our patient!!! Discharge Disposition: HOME SELF-CARE
== END 2022-08-01 10:37 | disposition home or self-care (01) ==
LOC: EC 10:22 → 6NMEDSUR 14:02
PROVIDERS: ADMIT Family Medicine; ATTEND Family Medicine
DX: I16.0 Hypertensive urgency (principal); R07.89 Other chest pain; R42 Dizziness and giddiness; G20 Parkinson's disease; R55 Syncope and collapse; I25.10 Atherosclerotic heart disease of native coronary artery without angina pectoris; Z95.1 Presence of aortocoronary bypass graft; E78.5 Hyperlipidemia, unspecified; H40.9 Unspecified glaucoma; E11.9 Type 2 diabetes mellitus without complications; Z90.49 Acquired absence of other specified parts of digestive tract; Z98.42 Cataract extraction status, left eye; Z98.41 Cataract extraction status, right eye; Z98.890 Other specified postprocedural states; E89.0 Postprocedural hypothyroidism; Z98.1 Arthrodesis status; I95.1 Orthostatic hypotension; Z79.84 Long term (current) use of oral hypoglycemic drugs; Z79.82 Long term (current) use of aspirin; Z79.890 Hormone replacement therapy; Z79.899 Other long term (current) drug therapy; G24.01 Drug induced subacute dyskinesia; Z87.442 Personal history of urinary calculi; G47.33 Obstructive sleep apnea (adult) (pediatric); Z96.653 Presence of artificial knee joint, bilateral; F41.9 Anxiety disorder, unspecified; F32.A Depression, unspecified; Z81.8 Family history of other mental and behavioral disorders; Z83.6 Family history of other diseases of the respiratory system; Z80.1 Family history of malignant neoplasm of trachea, bronchus and lung; Z82.49 Family history of ischemic heart disease and other diseases of the circulatory system; I49.3 Ventricular premature depolarization; I11.9 Hypertensive heart disease without heart failure; I08.1 Rheumatic disorders of both mitral and tricuspid valves
CPT/HCPCS: 96361 ×2; 96372 ×2; 96360; 99285; 36415; 93005; 93306; 80061; 80053; 80048; 84443; 83605; 83735; 84484; 85025; 85610; 81003; 83036; 71046; 70450; G0378 ×3; J1650 ×2; 96368

== ENCOUNTER 2022-09-03 13:43 | Emergency (ER) | payer MEDICARE ==
[2022-09-03 13:57] VITALS: BP 150/71; PULSE 54; RESP 20; TEMP 98
--- NOTE | 2022-09-03 14:22 | XR ---
EXAMINATION TYPE: XR hand complete RT DATE OF EXAM: 09/03/2022 COMPARISON: NONE HISTORY: Pain and swelling TECHNIQUE: Review FINDINGS: There is narrowing of the MP joint spaces with spur formation. There is less severe narrowi ng of the IP joint spaces. There is narrowing and spurring at the first carpometacarpal joint. There is calcification of the triangular cartilage. No osteopenia. IMPRESSION: Multiple areas of osteoarthritis. No fracture.
--- NOTE | 2022-09-03 15:04 | ED ---
General Adult HPI - General Chief complaint: Extremity Problem,Nontraumatic Stated complaint: RT hand swelling Time Seen by Provider: 09/03/22 14:37 Source: patient Mode of arrival: ambulatory Limitations: no limitations - History of Present Illness Initial comments: Dictation was produced using [employer] dictation software. please excuse any grammatical, word or spelling errors. Chief Complaint: 76-year-old male with past medical history Parkinson's disease, coronary artery disease and diabetes presents emergency department for right hand swelling History of Present Illness: Patient is 68-year-old male who presents emergency department for right hand swelling. He woke up with his hands tightly swollen. He noticed that his hand started to feel tight 21st noticed it. Patient denies any trauma to the hand. Denies any pain. Patient has any changes to his medications. No shortness of breath. No swelling anywhere else on his body. Since being in emergency department his swelling has gone down dramatically The ROS documented in this emergency department record has been reviewed and confirmed by me. Those systems with pertinent positive or negative responses have been documented in the HPI. All other systems are other negative and/or noncontributory. PHYSICAL EXAM: General Impression: Alert and oriented x3, not in acute distress HEENT: Normocephalic atraumatic, extra-ocular movements intact, pupils equal and reactive to light bilaterally, mucous membranes moist. Cardiovascular: Heart regular rate and rhythm Chest: Able to complete full sentences, no retractions, no tachypnea Motor: no focal deficits noted Neurological: CN II-XII grossly intact, no focal motor or sensory deficits noted Skin: Intact with no visualized rashes Psych: Normal affect and mood Right hand: Nonblanching swelling. Nonpitting, very minimal swelling most noticeable at the MCP joint. No erythema ED course: 68-year-old male presents emergency department for right hand swelling. Vital signs upon arrival are within acceptable limits. Swelling is minimal and has been improving since he's been in the emergency department. No concerns for infection. Patient does not have any pain over the deep venous systems of the right upper extremity. Advised follow-up to primary care doctor. No high-risk features. Patient agreeable discharge. - Related Data Home Medications Medication Instructions Recorded Confirmed Atorvastatin [Lipitor] 40 mg PO DAILY 04/19/18 07/30/22 Carbidopa-Levodopa 25-100 mg 3 tab PO QID@08,12,,04/19/18 07/30/22 [Sinemet 25-100 mg] Levothyroxine Sodium 25 mcg PO HS 04/19/18 07/30/22 Donepezil [Aricept] 10 mg PO HS 05/04/20 07/30/22 polyethylene glycoL 3350 [Clearlax] 17 gm PO DAILY PRN 05/04/20 07/30/22 L.acidoph,Paracasei, B.lactis 1 cap PO DAILY 09/26/21 07/30/22 [Probiotic] Omeprazole [PriLOSEC] 20 mg PO AC-BID 09/26/21 07/30/22 amantadine HCL [Gocovri] 274 mg PO HS 09/26/21 07/30/22 busPIRone HCl [Buspar] 10 mg PO TID@0900,1200,2100 09/26/21 07/30/22 Aspirin EC [Ecotrin Low Dose] 81 mg PO HS 07/30/22 07/30/22 Cetirizine HCl 10 mg PO BID@0900,1800 07/30/22 07/30/22 Clobetasol Propionate [Clobex 1 applic TOPICAL HS 07/30/22 07/30/22 [place] 0.05%] Dorzolamide 2% [Trusopt 2%] 1 drop BOTH EYES TID@0900,1200,2100 07/30/22 07/30/22 Latanoprost/Pf [Latanoprost 0.005% 1 drop BOTH EYES HS 07/30/22 07/30/22 Eye Drop] Timolol 0.5% Ophth Soln [Timoptic 1 drop BOTH EYES BID 07/30/22 07/30/22 0.5% Ophth Soln] Vit C/E/Zn/Coppr/Lutein/Zeaxan 1 cap PO BID 07/30/22 07/30/22 [Preservision Areds 2 Softgel] Previous Rx's Medication Instructions Recorded QUEtiapine [SEROquel] 25 mg PO HS #0 08/01/22 amLODIPine [Norvasc] 5 mg PO DAILY 60 Days #60 tab 08/01/22 metFORMIN HCL [Glucophage] 500 mg PO BID 30 Days #60 tab 08/01/22 Allergies Allergy/AdvReac Type Severity Reaction Status Date / Time No Known Allergies Allergy Verified 09/03/22 13:56 Review of Systems ROS Statement: Those systems with pertinent positive or pertinent negative responses have been documented in the HPI. ROS Other: All systems not noted in ROS Statement are negative. 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 Bilateral total knee replacement; Bilateral Ankle surgery. Thyroidectomy, hemrrohoidectomy. Numerous sinus surgeries. Cervical fusion; Thoracic fusion; Lumbar laminectomy Past Anesthesia/Blood Transfusion Reactions: No Reported Reaction Past Psychological History: Anxiety, Depression Smoking Status: Never smoker Past Alcohol Use History: None Reported Past Drug Use History: None Reported - Past Family History Mother Family Medical History: Dementia, Pneumonia Father Family Medical History: Cancer Additional Family Medical History / Comment(s): lung cancer Sister(s) Family Medical History: Cancer Additional Family Medical History / Comment(s): brain and lung cancer Son(s) Family Medical History: Coronary Artery Disease (CAD), Myocardial Infarction ([place]) Daughter(s) History Unknown: Yes Family Medical History: No Reported History General Exam Limitations: no limitations Course Vital Signs 09/03/22 13:54 Temperature 98 F Pulse Rate 54 L Respiratory 20 Rate Blood Pressure 150/71 O2 Sat by Pulse 96 Oximetry Disposition Clinical Impression: Hand swelling Disposition: HOME SELF-CARE Condition: Good Instructions (If sedation given, give patient instructions): Edema (ED) Is patient prescribed a controlled substance at d/c from ED?: No Referrals: Papi Noriega MD [Primary Care Provider] - 1-2 days Time of Disposition: 15:04
== END 2022-09-03 15:13 | disposition home or self-care (01) ==
LOC: EC 13:43
DX: M79.89 Other specified soft tissue disorders (principal); I25.10 Atherosclerotic heart disease of native coronary artery without angina pectoris; E11.9 Type 2 diabetes mellitus without complications; E78.5 Hyperlipidemia, unspecified; G47.30 Sleep apnea, unspecified; E07.9 Disorder of thyroid, unspecified; Z79.82 Long term (current) use of aspirin; Z79.899 Other long term (current) drug therapy; Z79.83 Long term (current) use of bisphosphonates; Z79.890 Hormone replacement therapy
CPT/HCPCS: 99283

== ENCOUNTER → 2022-09-27 | Outpatient (CLI) | payer MEDICARE ==
--- NOTE | 2022-09-27 12:14 | CT ---
EXAMINATION TYPE: CT abdomen pelvis wo con DATE OF EXAM: 09/27/2022 COMPARISON: 05/26/2020 HISTORY: left lower quadrant pain, weight loss, cant eat X few months CT DLP: 880 STAT H/C mGycm Examination of the solid and hollow viscera is limited given the lack of contrast. FINDINGS: LUNG BASES: No evidence for nodule. No evidence for infiltrate. LIVER/GB: The gallbladder surgically absent. No space-occupying hepatic lesion. PANCREAS: No pancreatic mass identified. No inflammatory process seen. SPLEEN: No evidence for splenomegaly. No intrasplenic lesions seen. Splenic granulomas noted. ADRENALS: No adrenal nodules identified. No evidence for thickening. KIDNEYS: No evidence for renal mass. Nonobstructing nephrolithiasis seen bilaterally with 4-5 7 3 mm calculi seen bilaterally. Urinary bladder is not ideally distended. No hydronephrosis. BOWEL: Appendix has a normal appearance. No evidence of bowel obstruction. No inflammatory process. S igmoid diverticulosis without diverticulitis. Rectosigmoid short segment wall thickening. Could be re lated to poor distention however underlying neoplasm is not excluded. Consider direct visualization. Lymph nodes: No evidence for adenopathy greater than 1 cm. Abdominal aorta: Atheromatous changes seen. No evidence for aneurysm. Genital organs: No significant abnormality. Other: No significant abnormality. IMPRESSION: 1. No acute intra-abdominal or intrapelvic process 2.Rectosigmoid short segment wall thickening. Could be related to poor distention however underlying neoplasm is not excluded. Consider direct visualization. A
== END | disposition home or self-care (01) ==
LOC: RADCTMAIN 11:28
PROVIDERS: ATTEND Family Medicine
DX: K63.89 Other specified diseases of intestine (principal); R10.32 Left lower quadrant pain
CPT/HCPCS: 74176

== ENCOUNTER 2023-03-14 13:57 | Emergency (ER) | payer MEDICARE ==
[2023-03-14 14:10] VITALS: BP 139/71; RESP 20; TEMP 97.7
[2023-03-14] MEDS ORDERED: SODIUM CHLORIDE 0.9% 1,000 ML IV STA (14:53)
[2023-03-14] MEDS ORDERED: ONDANSETRON 4 MG/2 ML VIAL IVP STA (15:06)
[2023-03-14 15:34] LABS: Basophils % (A) 0 %; Eosinophils # (A) 0.2 k/uL (0-0.7); Eosinophils % (A) 3 %; HCT 41.5 % (39.0-53.0); HGB 13.3 gm/dL (13.0-17.5); Lymphocytes # (A) 0.7 k/uL (1.0-4.8); Lymphocytes % (A) 10 %; MCH 27.7 pg (25.0-35.0); MCHC 31.9 g/dL (31.0-37.0); MCV 86.7 fL (80.0-100.0); Monocytes # (A) 0.3 k/uL (0-1.0); Monocytes % (A) 4 %; Neutrophils # (A) 5.8 k/uL (1.3-7.7); Neutrophils % (A) 82 %; Platelet Count 209 k/uL (150-450); RBC 4.79 m/uL (4.30-5.90); RDW 14.7 % (11.5-15.5); WBC 7.2 k/uL (3.8-10.6)
[2023-03-14 15:35] LABS: ALT 13 U/L (4-49); AST 26 U/L (17-59); African American GFR (CKD) >90 (>60 ml/min/1.73 sqM); Alkaline Phosphatase 135 U/L (38-126); Anion Gap 8 mmol/L; Blood Urea Nitrogen 21 mg/dL (9-20); Calcium 9.4 mg/dL (8.4-10.2); Carbon Dioxide 27 mmol/L (22-30); Chloride 105 mmol/L (98-107); Glucose 195 mg/dL (74-99); Lipase 112 U/L (23-300); Magnesium 2.1 mg/dL (1.6-2.3); Non-African American GFR(CKD) 83 (>60 ml/min/1.73 sqM); Potassium 4.6 mmol/L (3.5-5.1); Sodium 140 mmol/L (137-145); Total Bilirubin 0.7 mg/dL (0.2-1.3); Total Protein 6.7 g/dL (6.3-8.2)
--- NOTE | 2023-03-14 16:03 | XR ---
EXAMINATION TYPE: XR KUB DATE OF EXAM: 03/14/2023 Comparison: 05/28/2020 Clinical History: 77-year-old male vomiting Findings: Unchanged mid to lower lumbar spine. Mild to moderate degenerative changes left hip and mild of the r ight hip. Cholecystectomy clips. Median sternotomy wires. Possible subtle right mid abdominal calcifi cations measuring up to 4 mm. Left-sided pelvic width. Nonobstructive bowel gas pattern. Moderate sto ol in the right side of the abdomen. Impression: Nonobstructive bowel gas pattern. [id number] stool in the right side of the abdomen. Underlying right-sided nephrolithiasis measuring up to 4 mm.
--- NOTE | 2023-03-14 16:15 | ED ---
Nausea/Vomiting/Diarrhea HPI - General Chief complaint: Nausea/Vomiting/Diarrhea Stated complaint: Vomiting Time Seen by Provider: 03/14/23 14:44 Source: patient, family Mode of arrival: wheelchair Limitations: no limitations - History of Present Illness Initial comments: Patient is a 77-year-old male presents to the emergency department for vomiting. Daughter states he has had thorough testing with GI specialist Dr. Paredes and chronic vomiting is possibly related to acid reflux. He is on omeprazole. Patient presents today for increased vomiting which began this morning, approximately 4 episodes. He denies fever, chills, abdominal pain, diarrhea, melena, hematochezia, burning with urination, blood in urine, back pain. No cold-like symptoms, chest pain, shortness of breath. Family is concerned patient is dehydrated as he has been weaker today. Patient denies alcohol and drug use. He does have history of appendectomy and cholecystectomy. - Related Data Home Medications Medication Instructions Recorded Confirmed Atorvastatin [Lipitor] 40 mg PO DAILY 04/19/18 03/14/23 Carbidopa-Levodopa 25-100 mg 3 tab PO QID@08,12,18,04/19/18 03/14/23 [Sinemet 25-100 mg] Levothyroxine Sodium 25 mcg PO HS 04/19/18 03/14/23 Donepezil [Aricept] 10 mg PO HS 05/04/20 03/14/23 polyethylene glycoL 3350 [Clearlax] 17 gm PO DAILY PRN 05/04/20 03/14/23 L.acidoph,Paracasei, B.lactis 1 cap PO DAILY 09/26/21 03/14/23 [Probiotic] Omeprazole [PriLOSEC] 20 mg PO AC-BID 09/26/21 03/14/23 amantadine HCL [Gocovri] 274 mg PO HS 09/26/21 03/14/23 Aspirin EC [Ecotrin Low Dose] 81 mg PO HS 07/30/22 03/14/23 Cetirizine HCl 10 mg PO DAILY 07/30/22 03/14/23 Clobetasol Propionate [Clobex 1 applic TOPICAL HS 07/30/22 03/14/23 [place] 0.05%] Dorzolamide 2% [Trusopt 2%] 1 drop BOTH EYES TID@0900,1200,2100 07/30/22 03/14/23 Latanoprost/Pf [Latanoprost 0.005% 1 drop BOTH EYES HS 07/30/22 03/14/23 Eye Drop] Timolol 0.5% Ophth Soln [Timoptic 1 drop BOTH EYES BID 07/30/22 03/14/23 0.5% Ophth Soln] Vit C/E/Zn/Coppr/Lutein/Zeaxan 1 cap PO BID 07/30/22 03/14/23 [Preservision Areds 2 Softgel] Famotidine [Pepcid] 20 mg PO HS 03/14/23 03/14/23 QUEtiapine [SEROquel] 50 mg PO HS 03/14/23 03/14/23 busPIRone HCL 15 mg PO TID 03/14/23 03/14/23 Previous Rx's Medication Instructions Recorded amLODIPine [Norvasc] 5 mg PO DAILY 60 Days #60 tab 08/01/22 metFORMIN HCL [Glucophage] 500 mg PO BID 30 Days #60 tab 08/01/22 Allergies Allergy/AdvReac Type Severity Reaction Status Date / Time No Known Allergies Allergy Verified 03/14/23 16:17 Review of Systems ROS Statement: Those systems with pertinent positive or pertinent negative responses have been documented in the HPI. ROS Other: All systems not noted in ROS Statement are negative. 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 Bilateral total knee replacement; Bilateral Ankle surgery. Thyroidectomy, hemrrohoidectomy. Numerous sinus surgeries. Cervical fusion; Thoracic fusion; Lumbar laminectomy Past Anesthesia/Blood Transfusion Reactions: No Reported Reaction Past Psychological History: Anxiety, Depression Smoking Status: Never smoker Past Alcohol Use History: None Reported Past Drug Use History: None Reported - Past Family History Mother Family Medical History: Dementia, Pneumonia Father Family Medical History: Cancer Additional Family Medical History / Comment(s): lung cancer Sister(s) Family Medical History: Cancer Additional Family Medical History / Comment(s): brain and lung cancer Son(s) Family Medical History: Coronary Artery Disease (CAD), Myocardial Infarction ([place]) Daughter(s) History Unknown: Yes Family Medical History: No Reported History General Exam Limitations: no limitations General appearance: alert, in no apparent distress Head exam: Present: atraumatic, normocephalic, normal inspection Eye exam: Present: normal appearance, PERRL, EOMI. Absent: scleral icterus, conjunctival injection, periorbital swelling ENT exam: Present: mucous membranes dry Respiratory exam: Present: normal lung sounds bilaterally. Absent: respiratory distress, wheezes, rales, rhonchi, stridor Cardiovascular Exam: Present: regular rate, normal rhythm, normal heart sounds. Absent: systolic murmur, diastolic murmur, rubs, gallop, clicks GI/Abdominal exam: Present: soft, normal bowel sounds. Absent: distended, tenderness, guarding, rebound, rigid Extremities exam: Present: normal inspection, normal capillary refill Back exam: Absent: CVA tenderness (R), CVA tenderness (L) Neurological exam: Present: alert, oriented X3, CN II-XII intact Psychiatric exam: Present: normal affect, normal mood Skin exam: Present: warm, dry, intact, normal color. Absent: rash Course Vital Signs 03/14/23 03/14/23 14:04 18:00 Temperature 97.7 F Pulse Rate 60 67 Respiratory 20 20 Rate Blood Pressure 139/71 O2 Sat by Pulse 96 Oximetry Medical Decision Making - Medical Decision Making EKG taken at 16:02, interpreted by me Sinus bradycardia, left ventricular hypertrophy, no new ST segment or T-wave abnormality Ventricular rate 48, IA interval 171, QRS duration 116, QTc 412 Was pt. sent in by a medical professional or institution (, PA, TELEVISION PRODUCTION CLERK, urgent care, hospital, or skilled nursing...) When possible be specific @ -[No] Did you speak to anyone other than the patient for history (EMS, parent, family, police, friend...)? What history was obtained from this source @ -Yes, family helps provide history Did you review nursing and triage notes (agree or disagree)? Why? @ -[I reviewed and agree with nursing and triage notes] Were old charts reviewed (outside hosp., previous admission, EMS record, old EKG, old radiological studies, urgent care reports/EKG's, skilled nursing records)? Report findings @ -[No old charts were reviewed] Differential Diagnosis (chest pain, altered mental status, abdominal pain women, abdominal pain men, vaginal bleeding, weakness, fever, dyspnea, syncope, headache, dizziness, GI bleed, back pain, seizure, CVA, palpatations, mental health)? @ -Differential Abdominal Pain Men: Appendicitis, cholecystitis, diverticulosis, ischemic bowel, pancreatitis, hepatitis, UTI, gastroenteritis, AAA, incarcerated hernia, bowel obstruction, constipation, inflammatory bowel, hepatitis, peptic ulcer disease, splenic infarction, perforated viscus, testicular torsion, this is not meant to be an all-inclusive list EKG interpreted by me (3pts min.). @ -[As above] X-rays interpreted by me (1pt min.). @ -Yes, KUB shows mild to moderate stool in the right side of the abdomen without obstruction CT interpreted by me (1pt min.). @ -[None done] U/S interpreted by me (1pt. min.). @ -[None done] What testing was considered but not performed or refused? (CT, X-rays, U/S, labs)? Why? @ -[None] What meds were considered but not given or refused? Why? @ -[None] Did you discuss the management of the patient with other professionals (professionals i.e. , PA, TELEVISION PRODUCTION CLERK, lab, RT, psych nurse, community mental health social worker, outside cutter, teacher, revenue officer, housing case manager)? Give summary @ -[No] Was smoking cessation discussed for >3mins.? @ -[No] Was critical care preformed (if so, how long)? @ -[No] Were there social determinants of health that impacted care today? How? (Homelessness, low income, unemployed, alcoholism, drug addiction, transportation, low edu. Level, literacy, decrease access to med. care, group home, rehab)? @ -[No] Was there de-escalation of care discussed even if they declined (Discuss DNR or withdrawal of care, Hospice)? DNR status @ -[No] What co-morbidities impacted this encounter? (DM, HTN, Smoking, COPD, CAD, Cancer, CVA, ARF, Chemo, Hep., AIDS, mental health diagnosis, sleep apnea, morbid obesity)? @ -[None] Was patient admitted / discharged? Hospital course, mention meds given and route, prescriptions, significant lab abnormalities, going to OR and other pertinent info. @ -Patient presenting for vomiting. He is resting comfortably hemodynamically stable. The abdomen is soft and nontender. Laboratory studies obtained relatively unremarkable. No leukocytosis. KUB x-ray is negative for obstruction is mild to moderate stool in the right side of the abdomen. Patient given fluid bolus and Zofran. He denies of any further episodes of vomiting during his visit. He was able to tolerate water and crackers. Discussed case with patient's daughter in detail. Patient to increase water intake and high fiber diet at home. He will use home prescription of Zofran and Colace as needed and follow up with primary care provider. Undiagnosed new problem with uncertain prognosis? @ -[No] Drug Therapy requiring intensive monitoring for toxicity (Heparin, Nitro, Insulin, Cardizem)? @ -[No] Were any procedures done? @ -[No] Diagnosis/symptom? @ vomiting Acute, or Chronic, or Acute on Chronic? @ -acute on chronic Uncomplicated (without systemic symptoms) or Complicated (systemic symptoms)? @ -uncomplicated Side effects of treatment? @ -[No] Exacerbation, Progression, or Severe Exacerbation? @ -[No] Poses a threat to life or bodily function? How? (Chest pain, [place], [place], pneumonia, PE, COPD, DKA, ARF, appy, cholecystitis, CVA, Diverticulitis, Homicidal, Suicidal, threat to staff... and all critical care pts) @ -[No] Dr. Soriano is my attending - Lab Data Result diagrams: 03/14/23 14:58 03/14/23 14:58 Lab Results 03/14/23 03/14/23 03/14/23 Range/Units 14:58 14:58 15:16 WBC 7.2 (3.8-10.6) k/uL RBC 4.79 (4.30-5.90) m/uL Hgb 13.3 (13.0-17.5) gm/dL Hct 41.5 (39.0-53.0) % MCV 86.7 (80.0-100.0) fL MCH 27.7 (25.0-35.0) pg MCHC 31.9 (31.0-37.0) g/dL RDW 14.7 (11.5-15.5) % Plt Count 209 (150-450) k/uL MPV 8.0 Neutrophils % 82 % Lymphocytes % 10 % Monocytes % 4 % Eosinophils % 3 % Basophils % 0 % Neutrophils # 5.8 (1.3-7.7) k/uL Lymphocytes # 0.7 L (1.0-4.8) k/uL Monocytes # 0.3 (0-1.0) k/uL Eosinophils # 0.2 (0-0.7) k/uL Basophils # 0.0 (0-0.2) k/uL Sodium 140 (137-145) mmol/L Potassium 4.6 (3.5-5.1) mmol/L Chloride 105 (98-107) mmol/L Carbon Dioxide 27 (22-30) mmol/L Anion Gap 8 mmol/L BUN 21 H (9-20) mg/dL Creatinine 0.84 (0.66-1.25) mg/dL Est GFR (CKD-EPI)AfAm >90 (>60 ml/min/1.73 sqM) Est GFR (CKD-EPI)NonAf 83 (>60 ml/min/1.73 sqM) Glucose 195 H (74-99) mg/dL Calcium 9.4 (8.4-10.2) mg/dL Magnesium 2.1 (1.6-2.3) mg/dL Total Bilirubin 0.7 (0.2-1.3) mg/dL AST 26 (17-59) U/L ALT 13 (4-49) U/L Alkaline Phosphatase 135 H (38-126) U/L Total Protein 6.7 (6.3-8.2) g/dL Albumin 4.0 (3.5-5.0) g/dL Lipase 112 (23-300) U/L Urine Color Urine Appearance (Clear) Urine pH (5.0-8.0) Ur Specific [place] (1.001-1.035) Urine Protein (Negative) Urine Glucose (UA) (Negative) Urine Ketones (Negative) Urine Blood (Negative) Urine Nitrite (Negative) Urine Bilirubin (Negative) Urine Urobilinogen (<2.0) mg/dL Ur Leukocyte Esterase (Negative) Influenza Type A RNA Not Detected (Not Detectd) Influenza Type B (PCR) Not Detected (Not Detectd) 03/14/23 Range/Units 15:29 WBC (3.8-10.6) k/uL RBC (4.30-5.90) m/uL Hgb (13.0-17.5) gm/dL Hct (39.0-53.0) % MCV (80.0-100.0) fL MCH (25.0-35.0) pg MCHC (31.0-37.0) g/dL RDW (11.5-15.5) % Plt Count (150-450) k/uL MPV Neutrophils % % Lymphocytes % % Monocytes % % Eosinophils % % Basophils % % Neutrophils # (1.3-7.7) k/uL Lymphocytes # (1.0-4.8) k/uL Monocytes # (0-1.0) k/uL Eosinophils # (0-0.7) k/uL Basophils # (0-0.2) k/uL Sodium (137-145) mmol/L Potassium (3.5-5.1) mmol/L Chloride (98-107) mmol/L Carbon Dioxide (22-30) mmol/L Anion Gap mmol/L BUN (9-20) mg/dL Creatinine (0.66-1.25) mg/dL Est GFR (CKD-EPI)AfAm (>60 ml/min/1.73 sqM) Est GFR (CKD-EPI)NonAf (>60 ml/min/1.73 sqM) Glucose (74-99) mg/dL Calcium (8.4-10.2) mg/dL Magnesium (1.6-2.3) mg/dL Total Bilirubin (0.2-1.3) mg/dL AST (17-59) U/L ALT (4-49) U/L Alkaline Phosphatase (38-126) U/L Total Protein (6.3-8.2) g/dL Albumin (3.5-5.0) g/dL Lipase (23-300) U/L Urine Color Yellow Urine Appearance Clear (Clear) Urine pH 6.5 (5.0-8.0) Ur Specific [place] 1.023 (1.001-1.035) Urine Protein Trace H (Negative) Urine Glucose (UA) Negative (Negative) Urine Ketones Trace H (Negative) Urine Blood Negative (Negative) Urine Nitrite Negative (Negative) Urine Bilirubin Negative (Negative) Urine Urobilinogen 6.0 (<2.0) mg/dL Ur Leukocyte Esterase Negative (Negative) Influenza Type A RNA (Not Detectd) Influenza Type B (PCR) (Not Detectd) Disposition Clinical Impression: Vomiting Disposition: HOME SELF-CARE Condition: Good Instructions (If sedation given, give patient instructions): High Fiber Diet (ED), Acute Nausea and Vomiting (ED) Additional Instructions: Increase water intake. It is important to drink water and eat foods that are high in fiber to avoid constipation. Continue home Zofran and stool softener as needed. Follow-up with primary care provider in one to 2 days. Return to emergency department if you experience new, concerning, or worsening symptoms. Is patient prescribed a controlled substance at d/c from ED?: No Referrals: Papi Noriega MD [Primary Care Provider] - 1-2 days Time of Disposition: 17:36
[2023-03-14 16:47] LABS: Appearance,Urine Clear (Clear); Bilirubin,Urine Negative (Negative); Blood,Urine Negative (Negative); Color,Urine Yellow; Glucose,Urine (UA) Negative (Negative); Ketones,Urine Trace (Negative); Leukocyte Esterase,Urine Negative (Negative); Nitrite,Urine Negative (Negative); PH, Urine 6.5 (5.0-8.0); Protein,Urine Trace (Negative); Specific Gravity,Urine 1.023 (1.001-1.035)
[2023-03-14 18:02] VITALS: PULSE 67
== END 2023-03-14 18:02 | disposition home or self-care (01) ==
LOC: EC 13:57
DX: R11.2 Nausea with vomiting, unspecified (principal); E11.9 Type 2 diabetes mellitus without complications; I25.10 Atherosclerotic heart disease of native coronary artery without angina pectoris; E78.5 Hyperlipidemia, unspecified; G20 Parkinson's disease; E07.9 Disorder of thyroid, unspecified; F32.A Depression, unspecified; F41.9 Anxiety disorder, unspecified; Z79.890 Hormone replacement therapy; Z79.82 Long term (current) use of aspirin; Z79.899 Other long term (current) drug therapy; Z95.1 Presence of aortocoronary bypass graft
CPT/HCPCS: 36415; 93005; 80053; 83690; 83735; 85025; 81003; 87502; 74018; 99284; 96374; 96361 ×2; J2405

== ENCOUNTER 2023-08-20 15:57 | Inpatient (IN) | payer MEDICARE ==
[2023-08-20 16:41] LABS: Basophils % (A) 0 %; Eosinophils # (A) 0.2 k/uL (0-0.7); Eosinophils % (A) 3 %; HCT 40.1 % (39.0-53.0); HGB 12.9 gm/dL (13.0-17.5); Lymphocytes % (A) 15 %; MCHC 32.3 g/dL (31.0-37.0); MCV 89.7 fL (80.0-100.0); Mean Platelet Volume 7.9; Monocytes # (A) 0.4 k/uL (0-1.0); Monocytes % (A) 6 %; Neutrophils # (A) 4.9 k/uL (1.3-7.7); Neutrophils % (A) 74 %; Platelet Count 226 k/uL (150-450); RBC 4.47 m/uL (4.30-5.90); RDW 14.3 % (11.5-15.5); WBC 6.6 k/uL (3.8-10.6)
--- NOTE | 2023-08-20 16:47 | ED ---
General Adult HPI - General Chief complaint: Fall Stated complaint: Fall Time Seen by Provider: 08/20/23 16:03 Source: patient, family, RN notes reviewed, old records reviewed Mode of arrival: EMS Limitations: physical limitation - History of Present Illness Initial comments: 77-year-old male presenting status post fall with head injury. No sustained l oss conscious. No anticoagulation. Patient was noted to have an occipital hematoma laceration by paramedics. He received local wound care, was placed in a c-collar and was transported to the hospital. He did report preceding dizziness and lightheadedness prior to the fall. He has a history of P arkinson's and has had multiple falls over the past several months. His been home from rehab for approximately 2 weeks. He was also concern for UTI at this time and the patient has had some increased hallucinations and confusion. - Related Data Home Medications Medication Instructions Recorded Confirmed Atorvastatin [Lipitor] 40 mg PO DAILY 04/19/18 07/13/23 Carbidopa-Levodopa 25-100 mg 3 tab PO QID@08,12,18,04/19/18 07/13/23 [Sinemet 25-100 mg] Levothyroxine Sodium 25 mcg PO HS 04/19/18 07/13/23 Donepezil [Aricept] 10 mg PO HS 05/04/20 07/13/23 polyethylene glycoL 3350 [Clearlax] 17 gm PO DAILY PRN 05/04/20 07/13/23 L.acidoph,Paracasei, B.lactis 1 cap PO DAILY 09/26/21 07/13/23 [Probiotic] Omeprazole [PriLOSEC] 20 mg PO AC-BID 09/26/21 07/13/23 amantadine HCL [Gocovri] 274 mg PO HS 09/26/21 07/13/23 Cetirizine HCl 10 mg PO DAILY 07/30/22 07/13/23 Clobetasol Propionate [Clobex 1 applic TOPICAL HS 07/30/22 07/13/23 [place] 0.05%] Dorzolamide 2% [Trusopt 2%] 1 drop BOTH EYES TID@0900,1200,2100 07/30/22 07/13/23 Latanoprost/Pf [Latanoprost 0.005% 1 drop BOTH EYES HS 07/30/22 07/13/23 Eye Drop] Timolol 0.5% Ophth Soln [Timoptic 1 drop BOTH EYES BID 07/30/22 07/13/23 0.5% Ophth Soln] Vit C/E/Zn/Coppr/Lutein/Zeaxan 1 cap PO AC-BID 07/30/22 07/13/23 [Preservision Areds 2 Softgel] Famotidine [Pepcid] 20 mg PO HS 03/14/23 07/13/23 QUEtiapine [SEROquel] 50 mg PO HS 03/14/23 07/13/23 busPIRone HCL 15 mg PO TID 03/14/23 07/13/23 metFORMIN HCL [Glucophage] 500 mg PO AC-BID 07/13/23 07/13/23 Previous Rx's Medication Instructions Recorded amLODIPine [Norvasc] 5 mg PO DAILY 60 Days #60 tab 08/01/22 Acetaminophen Tab [Tylenol] 650 mg PO Q6HR tab 07/17/23 Cyanocobalamin [Vitamin B-12] 1,000 mcg PO DAILY tab 07/17/23 Ibuprofen [Motrin] 600 mg PO Q8HR PRN #30 tab 07/17/23 Lidocaine 5% Patch [Lidoderm 5% 1 patch TOPICAL DAILY patch 07/17/23 Patch] Sennosides [Senokot] 8.6 mg PO HS tab 07/17/23 Allergies Allergy/AdvReac Type Severity Reaction Status Date / Time No Known Allergies Allergy Verified 08/20/23 16:07 Review of Systems ROS Statement: Those systems with pertinent positive or pertinent negative responses have been documented in the HPI. ROS Other: All systems not noted in ROS Statement are negative. 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 Bilateral total knee replacement; Bilateral Ankle surgery. Thyroidectomy, hemrrohoidectomy. Numerous sinus surgeries. Cervical fusion; Thoracic fusion; Lumbar laminectomy Past Anesthesia/Blood Transfusion Reactions: No Reported Reaction Past Psychological History: Anxiety, Depression Smoking Status: Never smoker Past Alcohol Use History: None Reported Past Drug Use History: None Reported - Past Family History Mother Family Medical History: Dementia, Pneumonia Father Family Medical History: Cancer Additional Family Medical History / Comment(s): lung cancer Sister(s) Family Medical History: Cancer Additional Family Medical History / Comment(s): brain and lung cancer Son(s) Family Medical History: Coronary Artery Disease (CAD), Myocardial Infarction (VT) Daughter(s) History Unknown: Yes Family Medical History: No Reported History General Exam Limitations: physical limitation General appearance: alert, in no apparent distress Head exam: Present: other (Hematoma laceration occipital scalp) Eye exam: Present: normal appearance, PERRL Neck exam: Present: other (C-collar placed by paramedics) Respiratory exam: Present: normal lung sounds bilaterally. Absent: respiratory distress, wheezes Cardiovascular Exam: Present: normal rhythm, bradycardia GI/Abdominal exam: Present: soft. Absent: distended, guarding Extremities exam: Present: normal inspection, normal capillary refill, pedal edema Neurological exam: Present: alert, oriented X3. Absent: motor sensory deficit Psychiatric exam: Present: normal affect, normal mood Skin exam: Present: warm, dry Course Vital Signs 08/20/23 08/20/23 16:04 17:00 Temperature 98.0 F Pulse Rate 52 L 51 L Respiratory 16 18 Rate Blood Pressure 131/70 138/72 O2 Sat by Pulse 95 99 Oximetry Procedures - Laceration Laceration #1 Consent Obtained: verbal consent Indication: laceration Site: scalp Size (cm): 2 Description: linear Depth: simple, single layer Pre-repair: wound explored, irrigated extensively, deep structures intact Type of Sutures: other ([place]) Number of Sutures: 3 Technique: simple, interrupted Patient Tolerated Procedure: well Medical Decision Making - Medical Decision Making Was pt. sent in by a medical professional or institution (, PA, SALON LEADER, urgent care, hospital, or penitentiary...) When possible be specific @ -No Did you speak to anyone other than the patient for history (EMS, parent, family, police, friend...)? What history was obtained from this source @ -No Did you review nursing and triage notes (agree or disagree)? Why? @ -I reviewed and agree with nursing and triage notes Were old charts reviewed (outside hosp., previous admission, EMS record, old EKG, old radiological studies, urgent care reports/EKG's, penitentiary records)? Report findings @ -No old charts were reviewed Differential Diagnosis (chest pain, altered mental status, abdominal pain women, abdominal pain men, vaginal bleeding, weakness, fever, dyspnea, syncope, he adache, dizziness, GI bleed, back pain, seizure, CVA, palpatations, mental health, musculoskeletal)? @ -Differential Weakness: Hypoglycemia, shock, sepsis, hyponatremia, anemia, infection, VT, ETOH, adverse medicine reaction, overdose, stroke, this is not meant to be an all-inclusive list. EKG interpreted by me (3pts min.). @ Sinus bradycardia rate 51 OH interval 179, QRS duration 107, QTC 411, no ST segment elevation, ST segment depression in the lateral precordial leads] X-rays interpreted by me (1pt min.). @ -[Chest x-ray negative for acute cardio White findings CT interpreted by me (1pt min.). @Head CT negative for intracranial hemorrhage or mass effect U/S interpreted by me (1pt. min.). @ -None done What testing was considered but not performed or refused? (CT, X-rays, U/S, labs)? Why? @ -None What meds were considered but not given or refused? Why? @ -None Did you discuss the management of the patient with other professionals (professionals i.e. , PA, SALON LEADER, lab, RT, psych nurse, perinatal social worker, fuel technician, teacher, officer captain, division operations manager)? Give summary @ -[Sound physician group Was smoking cessation discussed for >3mins.? @ -No Was critical care preformed (if so, how long)? @ -No Were there social determinants of health that impacted care today? How? (Homelessness, low income, unemployed, alcoholism, drug addiction, transportation, low edu. Level, literacy, decrease access to med. care, mcc, rehab)? @ -No Was there de-escalation of care discussed even if they declined (Discuss DNR or withdrawal of care, Hospice)? DNR status @ -No What co-morbidities impacted this encounter? (DM, HTN, Smoking, COPD, CAD, Canc er, CVA, ARF, Chemo, Hep., AIDS, mental health diagnosis, sleep apnea, morbid obesity)? @ -[Parkinson's Was patient admitted / discharged? Hospital course, mention meds given and route, prescriptions, significant lab abnormalities, going to OR and other pertinent info. @ -77-year-old male history of Parkinson's disease presenting with recurrent fall, he did have head injury, head CT was negative for intracranial hemorrhage or mass effect. He had a small laceration which was repaired in the emergency department. Laboratory testing is stable, no signs of UTI. Family does report that he's had increased confusion and hallucinations. He did recently have an admission followed by rehab. There is concerns about his safety at home. He will be admitted to this institution with neurology on consult. Undiagnosed new problem with uncertain prognosis? @ -No Drug Therapy requiring intensive monitoring for toxicity (Heparin, Nitro, Insulin, Cardizem)? @ -No Were any procedures done? @ -[yes, laceration repair Diagnosis/symptom? @ -Parkinson's disease, frequent falls, scalp laceration Acute, or Chronic, or Acute on Chronic? @ -[Acute Uncomplicated (without systemic symptoms) or Complicated (systemic symptoms)? @ -default Side effects of treatment? @ -No Exacerbation, Progression, or Severe Exacerbation? @ -No Poses a threat to life or bodily function? How? (Chest pain, USA, VT, pneumonia, PE, COPD, DKA, ARF, appy, cholecystitis, CVA, Diverticulitis, Homicidal, Suicidal, threat to staff... and all critical care pts) @ -[Moderate risk, frequent falls - Lab Data Result diagrams: 08/20/23 16:29 08/20/23 16:29 Lab Results 08/20/23 08/20/23 08/20/23 Range/Units 16:29 16:29 16:29 WBC 6.6 (3.8-10.6) k/uL RBC 4.47 (4.30-5.90) m/uL Hgb 12.9 L (13.0-17.5) gm/dL Hct 40.1 (39.0-53.0) % MCV 89.7 (80.0-100.0) fL MCH 29.0 (25.0-35.0) pg MCHC 32.3 (31.0-37.0) g/dL RDW 14.3 (11.5-15.5) % Plt Count 226 (150-450) k/uL MPV 7.9 Neutrophils % 74 % Lymphocytes % 15 % Monocytes % 6 % Eosinophils % 3 % Basophils % 0 % Neutrophils # 4.9 (1.3-7.7) k/uL Lymphocytes # 1.0 (1.0-4.8) k/uL Monocytes # 0.4 (0-1.0) k/uL Eosinophils # 0.2 (0-0.7) k/uL Basophils # 0.0 (0-0.2) k/uL PT 10.1 (9.0-12.0) sec INR 0.9 (<1.2) APTT 23.2 (22.0-30.0) sec Sodium (137-145) mmol/L Potassium (3.5-5.1) mmol/L Chloride (98-107) mmol/L Carbon Dioxide (22-30) mmol/L Anion Gap mmol/L BUN (9-20) mg/dL Creatinine (0.66-1.25) mg/dL Est GFR (CKD-EPI)AfAm (>60 ml/min/1.73 sqM) Est GFR (CKD-EPI)NonAf (>60 ml/min/1.73 sqM) Glucose (74-99) mg/dL Lactic Ac Sepsis Rflx Plasma Lactic Acid Guillermo (0.7-2.0) mmol/L Calcium (8.4-10.2) mg/dL Magnesium (1.6-2.3) mg/dL Total Bilirubin (0.2-1.3) mg/dL AST (17-59) U/L ALT (4-49) U/L Alkaline Phosphatase (38-126) U/L Troponin I (0.000-0.034) ng/mL Total Protein (6.3-8.2) g/dL Albumin (3.5-5.0) g/dL Urine Color Yellow Urine Appearance Clear (Clear) Urine pH 5.5 (5.0-8.0) Ur Specific [place] 1.021 (1.001-1.035) Urine Protein Trace H (Negative) Urine Glucose (UA) Negative (Negative) Urine Ketones Trace H (Negative) Urine Blood Negative (Negative) Urine Nitrite Negative (Negative) Urine Bilirubin Negative (Negative) Urine Urobilinogen 3.0 (<2.0) mg/dL Ur Leukocyte Esterase Negative (Negative) 08/20/23 08/20/23 08/20/23 Range/Units 16:29 16:29 16:29 WBC (3.8-10.6) k/uL RBC (4.30-5.90) m/uL Hgb (13.0-17.5) gm/dL Hct (39.0-53.0) % MCV (80.0-100.0) fL MCH (25.0-35.0) pg MCHC (31.0-37.0) g/dL RDW (11.5-15.5) % Plt Count (150-450) k/uL MPV Neutrophils % % Lymphocytes % % Monocytes % % Eosinophils % % Basophils % % Neutrophils # (1.3-7.7) k/uL Lymphocytes # (1.0-4.8) k/uL Monocytes # (0-1.0) k/uL Eosinophils # (0-0.7) k/uL Basophils # (0-0.2) k/uL PT (9.0-12.0) sec INR (<1.2) APTT (22.0-30.0) sec Sodium 141 (137-145) mmol/L Potassium 4.9 (3.5-5.1) mmol/L Chloride 106 (98-107) mmol/L Carbon Dioxide 20 L (22-30) mmol/L Anion Gap 15 mmol/L BUN 22 H (9-20) mg/dL Creatinine 0.97 (0.66-1.25) mg/dL Est GFR (CKD-EPI)AfAm 86 (>60 ml/min/1.73 sqM) Est GFR (CKD-EPI)NonAf 75 (>60 ml/min/1.73 sqM) Glucose 122 H (74-99) mg/dL Lactic Ac Sepsis Rflx Plasma Lactic Acid Guill[place] 4.1 H* (0.7-2.0) mmol/L Calcium 9.3 (8.4-10.2) mg/dL Magnesium 2.2 (1.6-2.3) mg/dL Total Bilirubin 0.6 (0.2-1.3) mg/dL AST 27 (17-59) U/L ALT 17 (4-49) U/L Alkaline Phosphatase 155 H (38-126) U/L Troponin I <0.012 (0.000-0.034) ng/mL Total Protein 7.0 (6.3-8.2) g/dL Albumin 4.3 (3.5-5.0) g/dL Urine Color Urine Appearance (Clear) Urine pH (5.0-8.0) Ur Specific [place] (1.001-1.035) Urine Protein (Negative) Urine Glucose (UA) (Negative) Urine Ketones (Negative) Urine Blood (Negative) Urine Nitrite (Negative) Urine Bilirubin (Negative) Urine Urobilinogen (<2.0) mg/dL Ur Leukocyte Esterase (Negative) 08/20/23 Range/Units 17:40 WBC (3.8-10.6) k/uL RBC (4.30-5.90) m/uL Hgb (13.0-17.5) gm/dL Hct (39.0-53.0) % MCV (80.0-100.0) fL MCH (25.0-35.0) pg MCHC (31.0-37.0) g/dL RDW (11.5-15.5) % Plt Count (150-450) k/uL MPV Neutrophils % % Lymphocytes % % Monocytes % % Eosinophils % % Basophils % % Neutrophils # (1.3-7.7) k/uL Lymphocytes # (1.0-4.8) k/uL Monocytes # (0-1.0) k/uL Eosinophils # (0-0.7) k/uL Basophils # (0-0.2) k/uL PT (9.0-12.0) sec INR (<1.2) APTT (22.0-30.0) sec Sodium (137-145) mmol/L Potassium (3.5-5.1) mmol/L Chloride (98-107) mmol/L Carbon Dioxide (22-30) mmol/L Anion Gap mmol/L BUN (9-20) mg/dL Creatinine (0.66-1.25) mg/dL Est GFR (CKD-EPI)AfAm (>60 ml/min/1.73 sqM) Est GFR (CKD-EPI)NonAf (>60 ml/min/1.73 sqM) Glucose (74-99) mg/dL Lactic Ac Sepsis Rflx Y Plasma Lactic Acid [place] (0.7-2.0) mmol/L Calcium (8.4-10.2) mg/dL Magnesium (1.6-2.3) mg/dL Total Bilirubin (0.2-1.3) mg/dL AST (17-59) U/L ALT (4-49) U/L Alkaline Phosphatase (38-126) U/L Troponin I (0.000-0.034) ng/mL Total Protein (6.3-8.2) g/dL Albumin (3.5-5.0) g/dL Urine Color Urine Appearance (Clear) Urine pH (5.0-8.0) Ur Specific [place] (1.001-1.035) Urine Protein (Negative) Urine Glucose (UA) (Negative) Urine Ketones (Negative) Urine Blood (Negative) Urine Nitrite (Negative) Urine Bilirubin (Negative) Urine Urobilinogen (<2.0) mg/dL Ur Leukocyte Esterase (Negative) Disposition Clinical Impression: Fall, Parkinsons disease, Altered mental status Disposition: ADMITTED IP TO THIS HOSP Condition: Stable Is patient prescribed a controlled substance at d/c from ED?: No Referrals: Papi Noriega MD [Primary Care Provider] - 1-2 days Time of Disposition: 19:53
[2023-08-20 16:53] LABS: INR 0.9 (<1.2); Partial Thromboplastin Time 23.2 sec (22.0-30.0); Prothrombin Time 10.1 sec (9.0-12.0)
[2023-08-20 16:59] LABS: ALT 17 U/L (4-49); AST 27 U/L (17-59); African American GFR (CKD) 86 (>60 ml/min/1.73 sqM); Albumin 4.3 g/dL (3.5-5.0); Alkaline Phosphatase 155 U/L (38-126); Anion Gap 15 mmol/L; Blood Urea Nitrogen 22 mg/dL (9-20); Calcium 9.3 mg/dL (8.4-10.2); Carbon Dioxide 20 mmol/L (22-30); Chloride 106 mmol/L (98-107); Glucose 122 mg/dL (74-99); Magnesium 2.2 mg/dL (1.6-2.3); Non-African American GFR(CKD) 75 (>60 ml/min/1.73 sqM); Potassium 4.9 mmol/L (3.5-5.1); Sodium 141 mmol/L (137-145); Total Bilirubin 0.6 mg/dL (0.2-1.3)
--- NOTE | 2023-08-20 17:08 | XR ---
EXAMINATION TYPE: XR chest 1V portable DATE OF EXAM: 08/20/2023 4:53 PM CLINICAL INDICATION:Male, 77 years old with history of fall; COMPARISON: Chest radiographs from 07/15/2023 TECHNIQUE: XR chest 1V portable Frontal view of the chest. FINDINGS: Lungs/Pleura: There is no evidence of pleural effusion, focal consolidation, or pneumothorax. Pulmonary vascularity: Unremarkable. Heart/mediastinum: Cardiomediastinal silhouette is unremarkable. Musculoskeletal: No acute osseous pathology. Midline sternotomy wires are noted. Fixation hardware is in the spine appear intact. Right upper quadrant cholecystectomy clips. IMPRESSION: Chronic changes without acute pulmonary process. No significant change from prior.
--- NOTE | 2023-08-20 17:13 | CT ---
EXAMINATION TYPE: CT brain cspine wo con CT DLP: 1484.7 mGycm, Automated exposure control for dose reduction was used. DATE OF EXAM: 08/20/2023 4:59 PM COMPARISON: 07/13/2023. CLINICAL INDICATION:Male, 77 years old with history of fall; pain after fall TECHNIQUE: Brain: Multiple axial CT images of the brain were obtained without IV contrast. Cspine: Axial CT images from the skull base to the inferior aspect of T2 we obtained without intraven ous contrast. Coronal and sagittal reformatted images were also reviewed. FINDINGS: Brain: Extra-axial spaces: No abnormal extra-axial fluid collections. Ventricular system: Within normal limits Cerebral parenchyma: No acute intraparenchymal hemorrhage or mass effect. The maynard-white junction is well differentiated. Cerebellum: Unremarkable. Mass effect: No evidence of midline shift. Intracranial vasculature: Atherosclerotic calcifications of the intracranial vessels. Soft tissues: Normal. Calvarium/osseous structures: No depressed skull fracture. The right nasal bone is deformed. Paranasal sinuses and mastoid air cells: Clear. Visualized orbits: Bilaterally aphakia. Cervical spine: Fracture: No spinal fracture. There is a remote appearing right rib 3 fracture posteriorly with callu s formation. Osseous structures: Postsurgical changes at C5-C6 and C7. Hardware appears intact. Hardware appears i n appropriate position. Discectomy at these levels. . Multilevel degenerative disc disease changes wi th endplate spurring and disc osteophyte complex's. Degeneration changes of the temporomandibular abelino nts bilaterally Vertebral alignment: Within normal limits. Spinal canal/Neural Foramina: No evidence of significant spinal canal narrowing. No evidence for sign ificant neural foraminal stenosis. Neck soft tissues: Prevertebral soft tissues are within normal limits. Other: The airway is patent. The lung apices are clear. Enlarged right thyroid gland. IMPRESSION: 1. No acute intracranial process. 2. Age-indeterminate right nasal bone injury correlate with point tenderness. 3. No evidence of cervical spine fracture. 4. Mild multilevel degenerative disc disease. 5. Postsurgical changes to the spine with hardware intact. 6. Remote appearing right posterior rib 3 fracture.
[2023-08-20] MEDS ORDERED: SODIUM CHLORIDE 0.9% 500 ML 500 ML IV ONE (17:41)
[2023-08-20 17:44] LABS: Appearance,Urine Clear (Clear); Bilirubin,Urine Negative (Negative); Blood,Urine Negative (Negative); Color,Urine Yellow; Glucose,Urine (UA) Negative (Negative); Ketones,Urine Trace (Negative); Leukocyte Esterase,Urine Negative (Negative); Nitrite,Urine Negative (Negative); PH, Urine 5.5 (5.0-8.0); Protein,Urine Trace (Negative); Specific Gravity,Urine 1.021 (1.001-1.035)
[2023-08-20] MEDS: SODIUM CHLORIDE 0.9% 1,000 ML IV SCH (19:05)
[2023-08-20] MEDS ORDERED: NALOXONE 0.4 MG/ML 1 ML VIAL IV PRN (19:50)
[2023-08-20] MEDS ORDERED: ACETAMINOPHEN TAB 325 MG TAB PO PRN (19:50)
--- NOTE | 2023-08-21 00:46 | P.HPIM ---
History of Present Illness H&P Date: 08/20/23 Patient is a 77-year-old male with a PMH of Parkinson's disease, lewy body dementia, hypertension, hyperlipidemia, hypothyroidism, and anxiety who presents to the emergency room for falls, hallucinations, and urinary incontinence. The history was supplemented by the patient's and daughter at the bedside. Family reports that the patient has been having multiple falls recently and has been getting increasingly confused especially at night. This showed the commercial loan underwriter videos of patient attempting to walk out of his bed at night, with an unsteady gait and subsequently falling back onto the bedside. They report that he has gotten up multiple times each night with confusion and they have been having a difficult time managing him at home. The patient reports ongoing urinary incontinence throughout the day and states that it is difficult for him to burn his with all these responsibilities. Of note, the patient was recently hospitalized after mechanical fall in which he suffered multiple right-sided rib fractures with pneumothorax. The family is requesting that the patient be cons idered for possible placement versus rehab. Patient denied experiencing any significant trauma during these recent falls. He also denied experiencing chest discomfort or shortness of breath. In the emergency room, head and cervical spine CT revealed no acute abnormalities, chest x-ray showing chronic changes without acute abnormalities, and EKG showed sinus bradycardia at 51 bpm with T-wave inversion in lead 3 with Q waves in inferior leads. Laboratory evaluation was remarkable for lactic acid of 4.1 with troponin less than 0.012 with an unremarkable UA. ED documentation reviewed and case discussed with ED provider. Review of systems: Pertinent positives and negatives as discussed in HPI, a complete review of systems was performed and all other systems are negative. Physical examination: Vital signs reviewed General: non toxic, no distress, appears at stated age, normal weight Derm: no unusual rashes/lesions, warm Head: atraumatic, normocephalic, symmetric Eyes: EOMI, no lid lag, anicteric sclera, pupils equal round reactive to light ENT: Nose and ears atraumatic Neck: No cervical lymphadenopathy, trachea midline, supple Mouth: no lip lesion, mucus membranes moist Cardiovascular: S1S2 reg, no murmur, positive dorsalis pedis pulse bilateral, no edema Lungs: CTA bilateral, no rhonchi, no rales, no accessory muscle use Abdominal: soft, nontender to palpation, no guarding Ext: Mild diffuse rigidity and resting tremors noted, muscle strength 3 out of 5 in all 4 extremities grossly, no gross muscle atrophy, no contractures Neuro: CN II-XI grossly intact, no gross focal neuro deficits Psych: Alert, oriented, appropriate affect Assessment: Mechanical falls and hallucinations in patient with Parkinson's disease Lactic acidosis Chronic conditions: Hypertension, hyperlipidemia, hypothyroidism, anxiety, type II DM Imaging: In the emergency room, head and cervical spine CT revealed no acute abnormalities, chest x-ray showing chronic changes without acute abnormalities, and EKG showed sinus bradycardia at 51 bpm with T-wave inversion in lead 3 with Q waves in inferior leads. Data Review: Laboratory evaluation was remarkable for lactic acid of 4.1 with troponin less than 0.012 with an unremarkable UA. Plan: PT and neurology consult Fall precautions Continue with IV fluids with normal saline 75 mL an hour Monitor lactic acid for resolution Continue with the following home medications: -Timolol ophthalmic solution -Seroquel 50 mg by mouth daily at bedtime -Levothyroxine 25 g by mouth daily at bedtime -Latanoprost ophthalmic solution twice a day -Aricept 10 mg by mouth daily at bedtime -Sinemet 25-100 mg by mouth 4 times a day -Lipitor 40 mg by mouth daily -Norvasc 5 mg by mouth daily -Amantadine 274 mg by mouth daily at bedtime DVT prophylaxis: Lovenox Subq The patient is admitted with an anticipated greater than 2 midnight stay for evaluation of falls CODE STATUS: Full Code Discussed with: Patient Anticipated discharge place: 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 Bilateral total knee replacement; Bilateral Ankle surgery. Thyroidectomy, hemrrohoidectomy. Numerous sinus surgeries. Cervical fusion; Thoracic fusion; Lumbar laminectomy Past Anesthesia/Blood Transfusion Reactions: No Reported Reaction Past Psychological History: Anxiety, Depression Smoking Status: Never smoker Past Alcohol Use History: None Reported Past Drug Use History: None Reported - Past Family History Mother Family Medical History: Dementia, Pneumonia Father Family Medical History: Cancer Additional Family Medical History / Comment(s): lung cancer Sister(s) Family Medical History: Cancer Additional Family Medical History / Comment(s): brain and lung cancer Son(s) Family Medical History: Coronary Artery Disease (CAD), Myocardial Infarction ([place]) Daughter(s) History Unknown: Yes Family Medical History: No Reported History Medications and Allergies Home Medications Medication Instructions Recorded Confirmed Type Atorvastatin [Lipitor] 40 mg PO DAILY 04/19/18 08/20/23 History Carbidopa-Levodopa 25-100 mg 3 tab PO QID@08,,,04/19/18 08/20/23 History [Sinemet 25-100 mg] Levothyroxine Sodium 25 mcg PO HS 04/19/18 08/20/23 History Donepezil [Aricept] 10 mg PO HS 05/04/20 08/20/23 History polyethylene glycoL 3350 [Clearlax] 17 gm PO DAILY PRN 05/04/20 08/20/23 History L.acidoph,Paracasei, B.lactis 1 cap PO DAILY 09/26/21 08/20/23 History [Probiotic] Omeprazole [PriLOSEC] 20 mg PO AC-BID 09/26/21 08/20/23 History amantadine HCL [Gocovri] 274 mg PO HS 09/26/21 08/20/23 History Cetirizine HCl 10 mg PO DAILY 07/30/22 08/20/23 History Clobetasol Propionate [Clobex 1 applic TOPICAL HS 07/30/22 08/20/23 History [place] 0.05%] Dorzolamide 2% [Trusopt 2%] 1 drop BOTH EYES TID@0900,1200,2100 07/30/22 08/20/23 History Latanoprost/Pf [Latanoprost 0.005% 1 drop BOTH EYES HS 07/30/22 08/20/23 History Eye Drop] Timolol 0.5% Ophth Soln [Timoptic 1 drop BOTH EYES BID 07/30/22 08/20/23 History 0.5% Ophth Soln] Vit C/E/Zn/Coppr/Lutein/Zeaxan 1 cap PO AC-BID 07/30/22 08/20/23 History [Preservision Areds 2 Softgel] amLODIPine [Norvasc] 5 mg PO DAILY 60 Days #60 tab 08/01/22 08/20/23 Rx Famotidine [Pepcid] 20 mg PO HS 03/14/23 08/20/23 History QUEtiapine [SEROquel] 50 mg PO HS 03/14/23 08/20/23 History busPIRone HCL 15 mg PO TID 03/14/23 08/20/23 History metFORMIN HCL [Glucophage] 500 mg PO AC-BID 07/13/23 08/20/23 History Acetaminophen Tab [Tylenol] 650 mg PO Q6HR tab 07/17/23 08/20/23 Rx Cyanocobalamin [Vitamin B-12] 1,000 mcg PO DAILY tab 07/17/23 08/20/23 Rx Ibuprofen [Motrin] 600 mg PO Q8HR PRN #30 tab 07/17/23 08/20/23 Rx Lidocaine 5% Patch [Lidoderm 5% 1 patch TOPICAL DAILY patch 07/17/23 08/20/23 Rx Patch] Sennosides [Senokot] 8.6 mg PO HS tab 07/17/23 08/20/23 Rx Allergies Allergy/AdvReac Type Severity Reaction Status Date / Time No Known Allergies Allergy Verified 08/20/23 20:55 Physical Exam Vitals: Vital Signs Temp Pulse Resp BP Pulse Ox 08/20/23 21:15 98.4 F 53 L 18 147/84 100 08/20/23 17:00 51 L 18 138/72 99 08/20/23 16:04 98.0 F 52 L 16 131/70 95 Intake and Output 08/20/23 08/20/23 08/21/23 14:59 22:59 06:59 Other: Weight 65.771 kg Results CBC & Chem 7: 08/20/23 16:29 08/20/23 16:29 Labs: Abnormal Lab Results - Last 24 Hours (Table) 08/20/23 08/20/23 08/20/23 Range/Units 16:29 16:29 16:29 Hgb 12.9 L (13.0-17.5) gm/dL Carbon Dioxide 20 L (22-30) mmol/L BUN 22 H (9-20) mg/dL Glucose 122 H (74-99) mg/dL Plasma Lactic Acid Guillermo (0.7-2.0) mmol/L Alkaline Phosphatase 155 H (38-126) U/L Urine Protein Trace H (Negative) Urine Ketones Trace H (Negative) 08/20/23 Range/Units 16:29 Hgb (13.0-17.5) gm/dL Carbon Dioxide (22-30) mmol/L BUN (9-20) mg/dL Glucose (74-99) mg/dL Plasma Lactic Acid Guillermo 4.1 H* (0.7-2.0) mmol/L Alkaline Phosphatase (38-126) U/L Urine Protein (Negative) Urine Ketones (Negative)
[2023-08-21] MEDS: ATORVASTATIN 40 MG TAB PO SCH (08:14)
[2023-08-21] MEDS: TIMOLOL 0.5% OPHTH DROPS 5 ML BTL BOTH EYES SCH ×2 (08:14→21:11)
[2023-08-21] MEDS: amLODIPine 5 MG TAB PO SCH (08:14)
[2023-08-21] MEDS: DORZOLAMIDE HCL 2% DROPS 10 ML BTL BOTH EYES SCH ×3 (08:15→21:12)
[2023-08-21] MEDS: ENOXAPARIN 40 MG/0.4 ML SYRINGE SQ SCH ×2 (08:15→08:22)
[2023-08-21] MEDS: CARBIDOPA-LEVODOPA 25-100 MG 1 EACH TAB PO SCH ×4 (09:00→21:11)
[2023-08-21] MEDS ORDERED: busPIRone HCl 5 MG TAB PO STA (12:25)
--- NOTE | 2023-08-21 12:51 | P.CNNES ---
History of Present Illness Consult date: 08/21/23 Requesting physician: Santi David Reason for Consult: Parkinson's, frequent falls History of Present Illness: This is a 77-year-old gentleman with history of Parkinson's disease, falls and other medical problems who presented emergency department because of fall with head injury. History is obtained from medical record. Upon seeing the patient was agitated and he notified me that "you know my name and needle all my information. I'm going to walk away from this hospital". Per the ED note it seems the patient had a fall with a head injury but not sustained loss of consciousness and he presented the hospital by paramedics he notified that he was feeling dizzy and lightheaded prior toe fall. Seems the patient has multiple falls over the past several months the patient is "Steffen about 2 weeks. Of note is seems also patient was seen by Dr. Govea, neuro-hospitalist on 07/17/2023 because of a fall likely due to losing his balance from a Parkinson's disease with a subsequent rib fracture and is seems the patient was slightly dehydrated when he arrived to the hospital. Was felt the patient had active hallucination at that time due to delirium from pain medication. Please refer to Dr. Govea's note for further details. Some of the workup during his hospital visit consisted of: CBC with differential is hemoglobin 12.9 otherwise was unremarkable Plasma lactic acid venous 4.1, glucose is 122, sodium is 141, calcium 9.3, magnesium is 2.2, AST ALT is within normal limits CT of the head is reported as no acute intracranial process. Age indeterminate right nasal bone injury correlate with the point tenderness. Personally reviewed the CT of the head and there is no acute or subacute ischemia there is no bleed. CT cervical spine is reported as no evidence of cervical spine fracture. Mild multilevel degenerative disc disease. Postsurgical changes the spine with hardware intact. Remote appearing right posterior rib 3 fracture. Review of Systems Review of system is limited but positive and negative as per HPI. Past Medical History Past Medical History: Coronary Artery Disease (CAD), Diabetes Mellitus, Hyperlip idemia, Neurologic Disorder, Sleep Apnea/CPAP/BIPAP, Thyroid Disorder Additional Past Medical History / Comment(s): Lewie Body Tardive dyskenesia in past, parkinsons last 3-4 years, kidney stones, Parkinson's disease History of Any Multi-Drug Resistant Organisms: None Reported Past Surgical History: Adenoidectomy, Appendectomy, Cholecystectomy, Coronary Bypass/CABG, Heart Catheterization, Orthopedic Surgery, Tonsillectomy Additional Past Surgical History / Comment(s): Triple bypass - 2011, Bilateral cataract surgery. Bilateral total knee replacement; Bilateral Ankle surgery. Thyroidectomy, hemrrohoidectomy. Numerous sinus surgeries. Cervical fusion; Thoracic fusion; Lumbar laminectomy Past Anesthesia/Blood Transfusion Reactions: No Reported Reaction Past Psychological History: Anxiety, Depression Smoking Status: Never smoker Past Alcohol Use History: None Reported Past Drug Use History: None Reported - Past Family History Mother Family Medical History: Dementia, Pneumonia Father Family Medical History: Cancer Additional Family Medical History / Comment(s): lung cancer Sister(s) Family Medical History: Cancer Additional Family Medical History / Comment(s): brain and lung cancer Son(s) Family Medical History: Coronary Artery Disease (CAD), Myocardial Infarction ([place]) Daughter(s) History Unknown: Yes Family Medical History: No Reported History Medications and Allergies Home Medications Medication Instructions Recorded Confirmed Type Atorvastatin [Lipitor] 40 mg PO DAILY 04/19/18 08/20/23 History Carbidopa-Levodopa 25-100 mg 3 tab PO QID@08,12,18,21 04/19/18 08/20/23 History [Sinemet 25-100 mg] Levothyroxine Sodium 25 mcg PO HS 04/19/18 08/20/23 History Donepezil [Aricept] 10 mg PO HS 05/04/20 08/20/23 History polyethylene glycoL 3350 [Clearlax] 17 gm PO DAILY PRN 05/04/20 08/20/23 History L.acidoph,Paracasei, B.lactis 1 cap PO DAILY 09/26/21 08/20/23 History [Probiotic] Omeprazole [PriLOSEC] 20 mg PO AC-BID 09/26/21 08/20/23 History amantadine HCL [Gocovri] 274 mg PO HS 09/26/21 08/20/23 History Cetirizine HCl 10 mg PO DAILY 07/30/22 08/20/23 History Clobetasol Propionate [Clobex 1 applic TOPICAL HS 07/30/22 08/20/23 History [place] 0.05%] Dorzolamide 2% [Trusopt 2%] 1 drop BOTH EYES TID@0900,1200,2100 07/30/22 08/20/23 History Latanoprost/Pf [Latanoprost 0.005% 1 drop BOTH EYES HS 07/30/22 08/20/23 History Eye Drop] Timolol 0.5% Ophth Soln [Timoptic 1 drop BOTH EYES BID 07/30/22 08/20/23 History 0.5% Ophth Soln] Vit C/E/Zn/Coppr/Lutein/Zeaxan 1 cap PO AC-BID 07/30/22 08/20/23 History [Preservision Areds 2 Softgel] amLODIPine [Norvasc] 5 mg PO DAILY 60 Days #60 tab 08/01/22 08/20/23 Rx Famotidine [Pepcid] 20 mg PO HS 03/14/23 08/20/23 History QUEtiapine [SEROquel] 50 mg PO HS 03/14/23 08/20/23 History busPIRone HCL 15 mg PO TID 03/14/23 08/20/23 History metFORMIN HCL [Glucophage] 500 mg PO AC-BID 07/13/23 08/20/23 History Acetaminophen Tab [Tylenol] 650 mg PO Q6HR tab 07/17/23 08/20/23 Rx Cyanocobalamin [Vitamin B-12] 1,000 mcg PO DAILY tab 07/17/23 08/20/23 Rx Ibuprofen [Motrin] 600 mg PO Q8HR PRN #30 tab 07/17/23 08/20/23 Rx Lidocaine 5% Patch [Lidoderm 5% 1 patch TOPICAL DAILY patch 07/17/23 08/20/23 Rx Patch] Sennosides [Senokot] 8.6 mg PO HS tab 07/17/23 08/20/23 Rx Allergies Allergy/AdvReac Type Severity Reaction Status Date / Time No Known Allergies Allergy Verified 08/20/23 20:55 Physical Examination - Vital Signs Vital Signs: Vital Signs Temp Pulse Pulse Resp BP BP Pulse Ox 08/21/23 08:00 98.0 F 60 18 168/84 93 L 08/21/23 06:00 62 20 124/96 96 08/21/23 01:30 58 L 14 177/80 95 08/20/23 21:15 98.4 F 53 L 18 147/84 100 08/20/23 17:00 51 L 18 138/72 99 08/20/23 16:04 98.0 F 52 L 16 131/70 95 Intake and Output 08/20/23 08/21/23 08/21/23 22:59 06:59 14:59 Other: Voiding Method Urinal Diaper Weight 65.771 kg General: The patient is lying in bed and is restless. Neuro: Extremely Limited. The chart to assess home patient neuro exam since patient is very agitated and he stated that"you know my name any no all my information" No facial weakness. The patient is tracking on the right than left. No dysarthria Moving upwards above gravity but hard to assess individual muscle strength. Results - Laboratory Findings CBC and BMP: 08/20/23 16:29 08/20/23 16:29 Abnormal Lab Findings: Abnormal Labs 08/20/23 08/20/23 08/20/23 16:29 16:29 16:29 Hgb 12.9 L Carbon Dioxide 20 L BUN 22 H Glucose 122 H Plasma Lactic Acid Guillermo Alkaline Phosphatase 155 H Urine Protein Trace H Urine Ketones Trace H 08/20/23 16:29 Hgb Carbon Dioxide BUN Glucose Plasma Lactic Acid Guillermo 4.1 H* Alkaline Phosphatase Urine Protein Urine Ketones Assessment and Plan Assessment: This is a 77-year-old gentleman with history of Parkinson's disease, falls who presents because of recent fall. Patient is agitated and restless. He was seen by my colleague about a month ago for also falls and had delirium at that time. Recurrent falls due to his Parkinson's disease Delirium. History of altered mental status with active hallucination likely due to delirium from pain medication and that was a noted to rule out underlying cognitive disorder rule out Lewy body dementia. Parkinson's disease History of coronary artery disease status post CABG History of cervical fusion Diabetes mellitus Sleep apnea Hyperlipidemia Plan: If patient continues to be altered we'll get an EEG. About a month ago patient had a vitamin B12 which was 388, folate of 15, TSH is a 2.870 as well as a hemoglobin A1c 6.3 and I'll not get a repeat levels. We'll try to obtain an orthostatic vitals once the patient's more cooperative I agree with Dr. Turner's previous notes about a month ago that to consider Nuplazid if hallucination reoccur. Patient is on Sinemet 87730 tablets 4 times a day, Aricept 10 mg daily at bedtime Also patient is on Seroquel 50 mg daily at bedtime if that is helped can add 25 mg in the morning in addition. PT OT are consulted For the rest of the medical management to the primary team Thank you for the consultation. Time with Patient: Greater than 30
[2023-08-21] MEDS ORDERED: polyethylene glycoL 3350 17 GM POWD.PACK PO PRN (15:51)
[2023-08-21] MEDS ORDERED: DEXTROSE 50% SYRINGE 50 ML IVP PRN ×2 (15:52)
--- NOTE | 2023-08-21 15:54 | P.DS ---
Providers Date of admission: 08/20/23 20:22 Expected date of discharge: 08/21/23 Attending physician: Daren Jordan MD Consults: 08/20/23 19:50 Consult Physician Routine Consulting Provider: Scott Aquino Consult Reason/Comments: Parkinson's, frequent falls Do you want consulting provider notified?: Yes Primary care physician: [facility] Course: Hospital Course: 77-year-old male with a PMH of Parkinson's disease, lewy body dementia, hypertension, hyperlipidemia, hypothyroidism, and anxiety who presents to the emergency room for falls, hallucinations, and urinary incontinence. In the emergency room, head and cervical spine CT revealed no acute abnormalities, chest x-ray showing chronic changes without acute abnormalities, and EKG showed sinus bradycardia at 51 bpm with T-wave inversion in lead 3 with Q waves in inferior leads. Laboratory evaluation was remarkable for lactic acid of 4.1 with troponin less than 0.012 with an unremarkable UA. Subjective: Patient seen and examined at bedside. No acute events overnight. Pertinent positives and negatives as discussed above, a complete review of systems was performed and all other systems are negative. Vitals Signs Reviewed. General: non toxic, no distress, appears at stated age, normal weight Derm: no unusual rashes/lesions, warm Head: atraumatic, normocephalic, symmetric Eyes: EOMI, no lid lag, anicteric sclera, pupils equal round reactive to light ENT: Nose and ears atraumatic Neck: No cervical lymphadenopathy, trachea midline, supple Mouth: no lip lesion, mucus membranes moist Cardiovascular: S1S2 reg, no murmur, positive dorsalis pedis pulse bilateral, no edema Lungs: CTA bilateral, no rhonchi, no rales, no accessory muscle use Abdominal: soft, nontender to palpation, no guarding Ext: Mild diffuse rigidity and resting tremors noted, muscle strength 3 out of 5 in all 4 extremities grossly, no gross muscle atrophy, no contractures Neuro: CN II-XI grossly intact, no gross focal neuro deficits Psych: Alert, oriented, appropriate affect Data Reviewed Today: Pertinent Labs: No new labs Imaging: No new imaging Assessment and Plan: Active: Mechanical falls and hallucinations in patient with Parkinson's disease Acute delirium Lactic acidosis, resolved -Discussed management with neurology, orthostatic vitals and patient cooperative, continue current therapy for Parkinson's disease, CAD and 25 Mg Quetiapine in the Morning If Needed -Delirium precautions -PT/OT Type 2 diabetes -Sliding scale insulin Chronic: Hypertension Hyperlipidemia Hypothyroidism Anxiety Type II DM CAD status post CABG DVT ppx: Lovenox Code status: Full code Anticipated discharge place: Possibly placement Anticipated discharge time: Pending clinical course Patient Condition at Discharge: Stable Plan - Discharge Summary New Discharge Prescriptions: No Action Levothyroxine Sodium 25 mcg PO HS Carbidopa-Levodopa 25-100 mg [Sinemet 25-100 mg] 3 tab PO QID@08,,18, Atorvastatin [Lipitor] 40 mg PO DAILY Donepezil [Aricept] 10 mg PO HS polyethylene glycoL 3350 [Clearlax] 17 gm PO DAILY PRN PRN Reason: Constipation L.acidoph,Paracasei, B.lactis [Probiotic] 1 cap PO DAILY Latanoprost/Pf [Latanoprost 0.005% Eye Drop] 1 drop BOTH EYES HS Vit C/E/Zn/Coppr/Lutein/Zeaxan [Preservision Areds 2 Softgel] 1 cap PO AC-BID amLODIPine [Norvasc] 5 mg PO DAILY 60 Days #60 tab Famotidine [Pepcid] 20 mg PO HS metFORMIN HCL [Glucophage] 500 mg PO AC-BID Lidocaine 5% Patch [Lidoderm 5% Patch] 1 patch TOPICAL DAILY patch Ibuprofen [Motrin] 600 mg PO Q8HR PRN #30 tab PRN Reason: Pain Sennosides [Senokot] 8.6 mg PO HS tab Acetaminophen Tab [Tylenol] 650 mg PO Q6HR tab amantadine HCL [Gocovri] 274 mg PO HS Omeprazole [PriLOSEC] 20 mg PO AC-BID Cetirizine HCl 10 mg PO DAILY Clobetasol Propionate [Clobex [place] 0.05%] 1 applic TOPICAL HS Dorzolamide 2% [Trusopt 2%] 1 drop BOTH EYES TID@0900,1200,2100 Timolol 0.5% Ophth Soln [Timoptic 0.5% Ophth Soln] 1 drop BOTH EYES BID busPIRone HCL 15 mg PO TID QUEtiapine [SEROquel] 50 mg PO HS Cyanocobalamin [Vitamin B-12] 1,000 mcg PO DAILY tab Discharge Medication List Atorvastatin [Lipitor] 40 mg PO DAILY 04/19/18 [History] Carbidopa-Levodopa 25-100 mg [Sinemet 25-100 mg] 3 tab PO QID@08,12,18,21 04/19/18 [History] Levothyroxine Sodium 25 mcg PO HS 04/19/18 [History] Donepezil [Aricept] 10 mg PO HS 05/04/20 [History] polyethylene glycoL 3350 [Clearlax] 17 gm PO DAILY PRN 05/04/20 [History] L.acidoph,Paracasei, B.lactis [Probiotic] 1 cap PO DAILY 09/26/21 [History] Omeprazole [PriLOSEC] 20 mg PO AC-BID 09/26/21 [History] amantadine HCL [Gocovri] 274 mg PO HS 09/26/21 [History] Cetirizine HCl 10 mg PO DAILY 07/30/22 [History] Clobetasol Propionate [Clobex [place] 0.05%] 1 applic TOPICAL HS 07/30/22 [History] Dorzolamide 2% [Trusopt 2%] 1 drop BOTH EYES TID@0900,1200,2100 07/30/22 [History] Latanoprost/Pf [Latanoprost 0.005% Eye Drop] 1 drop BOTH EYES HS 07/30/22 [History] Timolol 0.5% Ophth Soln [Timoptic 0.5% Ophth Soln] 1 drop BOTH EYES BID 07/30/22 [History] Vit C/E/Zn/Coppr/Lutein/Zeaxan [Preservision Areds 2 Softgel] 1 cap PO AC-BID 07/30/22 [History] amLODIPine [Norvasc] 5 mg PO DAILY 60 Days #60 tab 08/01/22 [Rx] Famotidine [Pepcid] 20 mg PO HS 03/14/23 [History] QUEtiapine [SEROquel] 50 mg PO HS 03/14/23 [History] busPIRone HCL 15 mg PO TID 03/14/23 [History] metFORMIN HCL [Glucophage] 500 mg PO AC-BID 07/13/23 [History] Acetaminophen Tab [Tylenol] 650 mg PO Q6HR tab 07/17/23 [Rx] Cyanocobalamin [Vitamin B-12] 1,000 mcg PO DAILY tab 07/17/23 [Rx] Ibuprofen [Motrin] 600 mg PO Q8HR PRN #30 tab 07/17/23 [Rx] Lidocaine 5% Patch [Lidoderm 5% Patch] 1 patch TOPICAL DAILY patch 07/17/23 [Rx] Sennosides [Senokot] 8.6 mg PO HS tab 07/17/23 [Rx] Follow up Appointment(s)/Referral(s): Papi Noriega MD [Primary Care Provider] - 1-2 days
[2023-08-21] MEDS: busPIRone HCl 10 MG TAB PO SCH ×2 (16:23→21:10)
[2023-08-21] MEDS: SODIUM CHLORIDE 0.9% 1,000 ML IV SCH ×2 (16:44→21:18)
[2023-08-21 17:00] LABS: Glucose,Whole Blood 167 mg/dL (70-110)
[2023-08-21] MEDS: INSULIN ASPART (NovoLOG) 100 UNIT/ML VIAL SQ SCH ×2 (18:02→21:18)
[2023-08-21] MEDS: PANTOPRAZOLE 40 MG TABLET PO SCH (18:03)
[2023-08-21] MEDS ORDERED: AMANTADINE HCL 137 MG PO SCH (21:00)
[2023-08-21 21:07] LABS: Glucose,Whole Blood 99 mg/dL (70-110)
[2023-08-21] MEDS: DONEPEZIL 10 MG TAB PO SCH (21:11)
[2023-08-21] MEDS: SENNOSIDES 8.6 MG TAB PO SCH (21:11)
[2023-08-21] MEDS: LEVOTHYROXINE 25 MCG TAB PO SCH (21:11)
[2023-08-21] MEDS: FAMOTIDINE 20 MG TAB PO SCH (21:11)
[2023-08-21] MEDS: QUEtiapine 50 MG TAB PO SCH (21:11)
[2023-08-21] MEDS: AMANTADINE PO SCH (21:11)
[2023-08-21] MEDS: LATANOPROST 0.005% OPHTH DROPS 2.5 ML BTL BOTH EYES SCH (21:12)
[2023-08-22] MEDS: MELATONIN 5 MG TABLET PO SCH ×2 (01:41→20:43)
[2023-08-22 05:55] LABS: Glucose,Whole Blood 121 mg/dL (70-110)
[2023-08-22] MEDS: INSULIN ASPART (NovoLOG) 100 UNIT/ML VIAL SQ SCH ×4 (06:03→20:44)
[2023-08-22] MEDS: PANTOPRAZOLE 40 MG TABLET PO SCH ×2 (06:32→17:26)
[2023-08-22] MEDS ORDERED: QUEtiapine 25 MG TAB PO PRN (08:34)
[2023-08-22] MEDS: TIMOLOL 0.5% OPHTH DROPS 5 ML BTL BOTH EYES SCH ×2 (10:42→20:44)
[2023-08-22] MEDS: LORATADINE 10 MG TAB PO SCH (10:43)
[2023-08-22] MEDS: DORZOLAMIDE HCL 2% DROPS 10 ML BTL BOTH EYES SCH ×3 (10:43→20:45)
[2023-08-22] MEDS: amLODIPine 5 MG TAB PO SCH (10:43)
[2023-08-22] MEDS: ENOXAPARIN 40 MG/0.4 ML SYRINGE SQ SCH (10:43)
[2023-08-22] MEDS: CARBIDOPA-LEVODOPA 25-100 MG 1 EACH TAB PO SCH ×4 (10:43→20:44)
[2023-08-22] MEDS: CYANOCOBALAMIN 500 MCG TAB PO SCH (10:43)
[2023-08-22] MEDS: LACTOBACILLUS ACIDOPHILUS/PECT 1 EACH CAPSULE PO SCH (10:43)
[2023-08-22] MEDS: ATORVASTATIN 40 MG TAB PO SCH (10:43)
[2023-08-22] MEDS: busPIRone HCl 10 MG TAB PO SCH ×3 (10:44→20:44)
[2023-08-22 12:19] LABS: Glucose,Whole Blood 153 mg/dL (70-110)
--- NOTE | 2023-08-22 12:30 | P.PN ---
Subjective Progress Note Date: 08/22/23 Hospital Course: 77-year-old male with a PMH of Parkinson's disease, lewy body dementia, hypertension, hyperlipidemia, hypothyroidism, and anxiety who presents to the emergency room for falls, hallucinations, and urinary incontinence. In the emergency room, head and cervical spine CT revealed no acute abnormalities, chest x-ray showing chronic changes without acute abnormalities, and EKG showed sinus bradycardia at 51 bpm with T-wave inversion in lead 3 with Q waves in inferior leads. Laboratory evaluation was remarkable for lactic acid of 4.1 with troponin less than 0.012 with an unremarkable UA. Neurology was consulted. Subjective: Patient seen and examined at bedside. No acute events overnight. Patient was getting more combative this morning. Pertinent positives and negatives as discussed above, a complete review of systems was performed and all other systems are negative. Vitals Signs Reviewed. General: non toxic, no distress, appears at stated age, normal weight Derm: no unusual rashes/lesions, warm Head: atraumatic, normocephalic, symmetric Eyes: EOMI, no lid lag, anicteric sclera, pupils equal round reactive to light ENT: Nose and ears atraumatic Neck: No cervical lymphadenopathy, trachea midline, supple Mouth: no lip lesion, mucus membranes moist Cardiovascular: S1S2 reg, no murmur, positive dorsalis pedis pulse bilateral, no edema Lungs: CTA bilateral, no rhonchi, no rales, no accessory muscle use Abdominal: soft, nontender to palpation, no guarding Ext: Mild diffuse rigidity and resting tremors noted, muscle strength 3 out of 5 in all 4 extremities grossly, no gross muscle atrophy, no contractures Neuro: CN II-XI grossly intact, no gross focal neuro deficits Psych: Alert, oriented, appropriate affect Data Reviewed Today: Pertinent Labs: Blood glucose levels range between 99-167 Imaging: No new imaging Assessment and Plan: Active: Mechanical falls and hallucinations in patient with Parkinson's disease Acute delirium Lactic acidosis, resolved -Nephrology following -Added PRN quetiapine in the morning -Delirium precautions -PT/OT Type 2 diabetes -Sliding scale insulin Chronic: Hypertension Hyperlipidemia Hypothyroidism Anxiety Type II DM CAD status post CABG DVT ppx: Lovenox Code status: Full code Anticipated discharge place: Placement Anticipated discharge time: Pending clinical course Objective - Vital Signs Vital signs: Vital Signs Temp 97.9 F 08/22/23 06:36 Pulse 55 L 08/22/23 06:36 Resp 16 08/22/23 06:36 BP 139/76 08/22/23 06:36 Pulse Ox 98 08/22/23 06:36 FiO2 Intake & Output 08/21/23 08/22/23 08/22/23 18:59 06:59 18:59 Intake Total 10 Output Total 700 Balance 10 -700 Intake: IV 10 Invasive Line 1 10 Output: Urine 700 Other: Voiding Method Urinal Diaper Diaper External Catheter # Voids 2 - Labs CBC & Chem 7: 08/20/23 16:29 08/20/23 16:29 Labs: Abnormal Lab Results - Last 24 Hours (Table) 08/21/23 08/22/23 08/22/23 Range/Units 16:59 05:53 12:17 POC Glucose (mg/dL) 167 H 121 H 153 H (70-110) mg/dL
[2023-08-22] MEDS: SODIUM CHLORIDE 0.9% 1,000 ML IV SCH (13:12)
--- NOTE | 2023-08-22 15:21 | P.PN ---
Subjective Progress Note Date: 08/22/23 I'm following up with the patient and he is accompanied with his . It seems the patient is more cooperative and calm today. Per the , he walked without assistance trying to bailey to the bathroom as result he fell. He follows up with a neurologist over at [facility] for his Parkinson's disease. Objective - Vital Signs Vital signs: Vital Signs Temp 97.8 F 08/22/23 13:30 Pulse 51 L 08/22/23 13:30 Resp 18 08/22/23 13:30 BP 149/77 08/22/23 13:30 Pulse Ox 98 08/22/23 06:36 FiO2 Intake & Output 08/21/23 08/22/23 08/22/23 18:59 06:59 18:59 Intake Total 10 Output Total 700 Balance 10 -700 Intake: IV 10 Invasive Line 1 10 Output: Urine 700 Other: Voiding Method Urinal Diaper Bedpan Diaper External Catheter Diaper # Voids 2 - Exam General: The patient is sitting up in chair and is not in acute distress. Neuro: Patient is awake alert oriented to self, place, year but stated that the month is June. He's able to identify objects such as a pen and watch. He's able to name his correctly. He is following simple commands. No aphasia and no neglect. Visual benoit are full to confrontation. No facial weakness. No dysarthria Motor is a strength ease the left and all extremity is above gravity. No focal weakness noted. Some of the workup during his hospital visit consisted of: CBC with differential is hemoglobin 12.9 otherwise was unremarkable Plasma lactic acid venous 4.1, glucose is 122, sodium is 141, calcium 9.3, magnesium is 2.2, AST ALT is within normal limits CT of the head is reported as no acute intracranial process. Age indeterminate right nasal bone injury correlate with the point tenderness. Personally reviewed the CT of the head and there is no acute or subacute ischemia there is no bleed. CT cervical spine is reported as no evidence of cervical spine fracture. Mild multilevel degenerative disc disease. Postsurgical changes the spine with hardware intact. Remote appearing right posterior rib 3 fracture. - Labs CBC & Chem 7: 08/20/23 16:29 08/20/23 16:29 Labs: Abnormal Lab Results - Last 24 Hours (Table) 10/09/0308/22/23 08/22/23 Range/Units 16:59 05:53 12:17 POC Glucose (mg/dL) 167 H 121 H 153 H (70-110) mg/dL Assessment and Plan Assessment: This is a 77-year-old gentleman with history of Parkinson's disease, falls who presents because of recent fall. Patient is agitated and restless. He was seen by my colleague about a month ago for also falls and had delirium at that time. Recurrent falls due to his Parkinson's disease Delirium---resolved History of altered mental status with active hallucination likely due to delirium from pain medication and that was a noted to rule out underlying cognitive disorder rule out Lewy body dementia. Parkinson's disease History of coronary artery disease status post CABG History of cervical fusion Diabetes mellitus Sleep apnea Hyperlipidemia Plan: About a month ago patient had a vitamin B12 which was 388, folate of 15, TSH is a 2.870 as well as a hemoglobin A1c 6.3 and I'll not get a repeat levels. I agree with Dr. Turner's previous notes about a month ago that to consider Nuplazid if hallucination reoccur. Patient is on Sinemet 93769 tablets 4 times a day, Aricept 10 mg daily at bedtime Also patient is on Seroquel 50 mg daily at bedtime and can add 25 mg in the morning in addition if further agitation. PT OT are consulted Patient continues to have any further contusion we'll get a routine EEG but this time and his mentation is drastically better. For the rest of the medical management to the primary team To continue to follow up with his neurologist as an outpatient. He follows up with a neurologist in [place] and therefore Per the she is having difficulty taking care of him at home and she wants to discharge him to nursing facility. The plan discussed with the patient's, his was at bedside and primary team If patient continues to be stable no further neurological workup. Time with Patient: Less than 30
[2023-08-22 16:33] LABS: Glucose,Whole Blood 128 mg/dL (70-110)
[2023-08-22 19:14] LABS: Glucose,Whole Blood 159 mg/dL (70-110)
[2023-08-22] MEDS: LEVOTHYROXINE 25 MCG TAB PO SCH (20:43)
[2023-08-22] MEDS: QUEtiapine 50 MG TAB PO SCH (20:43)
[2023-08-22] MEDS: DONEPEZIL 10 MG TAB PO SCH (20:43)
[2023-08-22] MEDS: SENNOSIDES 8.6 MG TAB PO SCH (20:43)
[2023-08-22] MEDS: FAMOTIDINE 20 MG TAB PO SCH (20:44)
[2023-08-22] MEDS: AMANTADINE PO SCH (20:44)
[2023-08-22] MEDS: LATANOPROST 0.005% OPHTH DROPS 2.5 ML BTL BOTH EYES SCH (20:44)
[2023-08-23] MEDS: SODIUM CHLORIDE 0.9% 1,000 ML IV SCH (00:06)
[2023-08-23 05:43] LABS: Glucose,Whole Blood 119 mg/dL (70-110)
[2023-08-23] MEDS: INSULIN ASPART (NovoLOG) 100 UNIT/ML VIAL SQ SCH ×2 (05:47→13:04)
[2023-08-23] MEDS: PANTOPRAZOLE 40 MG TABLET PO SCH (06:16)
[2023-08-23] MEDS: LACTOBACILLUS ACIDOPHILUS/PECT 1 EACH CAPSULE PO SCH (08:55)
[2023-08-23] MEDS: busPIRone HCl 10 MG TAB PO SCH (08:55)
[2023-08-23] MEDS: ATORVASTATIN 40 MG TAB PO SCH (08:55)
[2023-08-23] MEDS: CYANOCOBALAMIN 500 MCG TAB PO SCH (08:56)
[2023-08-23] MEDS: LORATADINE 10 MG TAB PO SCH (08:57)
[2023-08-23] MEDS: ENOXAPARIN 40 MG/0.4 ML SYRINGE SQ SCH (08:57)
[2023-08-23] MEDS: amLODIPine 5 MG TAB PO SCH (08:57)
[2023-08-23] MEDS: CARBIDOPA-LEVODOPA 25-100 MG 1 EACH TAB PO SCH ×2 (08:57→13:03)
[2023-08-23] MEDS: TIMOLOL 0.5% OPHTH DROPS 5 ML BTL BOTH EYES SCH (08:59)
[2023-08-23] MEDS: DORZOLAMIDE HCL 2% DROPS 10 ML BTL BOTH EYES SCH ×2 (08:59→13:04)
[2023-08-23 11:50] LABS: Glucose,Whole Blood 140 mg/dL (70-110)
[2023-08-23 13:28] VITALS: BP 121/67; PULSE 50; RESP 16; TEMP 97.5
--- NOTE | 2023-08-23 14:09 | P.DS ---
Providers Date of admission: 08/20/23 20:22 Expected date of discharge: 08/23/23 Attending physician: Daren Jordan MD Consults: 08/20/23 19:50 Consult Physician Routine Consulting Provider: Scott Aquino Consult Reason/Comments: Parkinson's, frequent falls Do you want consulting provider notified?: Yes Primary care physician: Scheurer Hospital Course: 77-year-old male with a PMH of Parkinson's disease, lewy body dementia, hypertension, hyperlipidemia, hypothyroidism, and anxiety who presents to the emergency room for falls, hallucinations, and urinary incontinence. In the emergency room, head and cervical spine CT revealed no acute abnormalities, chest x-ray showing chronic changes without acute abnormalities, and EKG showed sinus bradycardia at 51 bpm with T-wave inversion in lead 3 with Q waves in inferior leads. Laboratory evaluation was remarkable for lactic acid of 4.1 with troponin less than 0.012 with an unremarkable UA. Lactic acidosis resolved with IV hydration. Neurology was consulted. Patient was previously worked up with B12, Folate, TSH. Seroquel 25 mg PO QD added by neurology and possibility of Nuplazid if hallucinations continued. Patient was accepted at [facility] and was subsequently discharged on 08/23. Patient seen and examined at bedside. No acute events overnight. Pertinent studies include CT head, CT c-spine, CXR. Vitals Signs Reviewed. General: non toxic, no distress, appears at stated age, normal weight Derm: no unusual rashes/lesions, warm Head: atraumatic, normocephalic, symmetric Eyes: EOMI, no lid lag, anicteric sclera ENT: Nose and ears atraumatic Neck: No cervical lymphadenopathy, trachea midline, supple Mouth: no lip lesion, mucus membranes moist Cardiovascular: good distal perfusion in all 4 extremities Lungs: breathing comfortably, no accessory muscle use Psych: Alert, oriented, appropriate affect Discharge Diagnosis: Mechanical falls and hallucinations in patient with Parkinson's disease Acute delirium Lactic acidosis, resolved Type 2 diabetes Chronic: Hypertension Hyperlipidemia Hypothyroidism Anxiety Type II DM CAD status post CABG This complex discharge took 35 minutes to complete. Patient Condition at Discharge: Stable Plan - Discharge Summary Discharge Rx Participant: Yes New Discharge Prescriptions: New Melatonin 5 mg PO HS tab QUEtiapine [SEROquel] 25 mg PO DAILY PRN tab PRN Reason: Agitation Continue Levothyroxine Sodium 25 mcg PO HS Carbidopa-Levodopa 25-100 mg [Sinemet 25-100 mg] 3 tab PO QID@08,,18, Atorvastatin [Lipitor] 40 mg PO DAILY Donepezil [Aricept] 10 mg PO HS polyethylene glycoL 3350 [Clearlax] 17 gm PO DAILY PRN PRN Reason: Constipation L.acidoph,Paracasei, B.lactis [Probiotic] 1 cap PO DAILY Latanoprost/Pf [Latanoprost 0.005% Eye Drop] 1 drop BOTH EYES HS Vit C/E/Zn/Coppr/Lutein/Zeaxan [Preservision Areds 2 Softgel] 1 cap PO AC-BID amLODIPine [Norvasc] 5 mg PO DAILY 60 Days #60 tab Famotidine [Pepcid] 20 mg PO HS metFORMIN HCL [Glucophage] 500 mg PO AC-BID Lidocaine 5% Patch [Lidoderm 5% Patch] 1 patch TOPICAL DAILY patch Ibuprofen [Motrin] 600 mg PO Q8HR PRN #30 tab PRN Reason: Pain Sennosides [Senokot] 8.6 mg PO HS tab Acetaminophen Tab [Tylenol] 650 mg PO Q6HR tab amantadine HCL [Gocovri] 274 mg PO HS Omeprazole [PriLOSEC] 20 mg PO AC-BID Cetirizine HCl 10 mg PO DAILY Clobetasol Propionate [Clobex Clay 0.05%] 1 applic TOPICAL HS Dorzolamide 2% [Trusopt 2%] 1 drop BOTH EYES TID@0900,1200,2100 Timolol 0.5% Ophth Soln [Timoptic 0.5% Ophth Soln] 1 drop BOTH EYES BID busPIRone HCL 15 mg PO TID QUEtiapine [SEROquel] 50 mg PO HS Cyanocobalamin [Vitamin B-12] 1,000 mcg PO DAILY tab Discharge Medication List Atorvastatin [Lipitor] 40 mg PO DAILY 04/19/18 [History] Carbidopa-Levodopa 25-100 mg [Sinemet 25-100 mg] 3 tab PO QID@08,12,18,21 04/19/18 [History] Levothyroxine Sodium 25 mcg PO HS 04/19/18 [History] Donepezil [Aricept] 10 mg PO HS 05/04/20 [History] polyethylene glycoL 3350 [Clearlax] 17 gm PO DAILY PRN 05/04/20 [History] L.acidoph,Paracasei, B.lactis [Probiotic] 1 cap PO DAILY 09/26/21 [History] Omeprazole [PriLOSEC] 20 mg PO AC-BID 09/26/21 [History] amantadine HCL [Gocovri] 274 mg PO HS 09/26/21 [History] Cetirizine HCl 10 mg PO DAILY 07/30/22 [History] Clobetasol Propionate [Clobex Clay 0.05%] 1 applic TOPICAL HS 07/30/22 [History] Dorzolamide 2% [Trusopt 2%] 1 drop BOTH EYES TID@0900,1200,2100 07/30/22 [History] Latanoprost/Pf [Latanoprost 0.005% Eye Drop] 1 drop BOTH EYES HS 07/30/22 [History] Timolol 0.5% Ophth Soln [Timoptic 0.5% Ophth Soln] 1 drop BOTH EYES BID 07/30/22 [History] Vit C/E/Zn/Coppr/Lutein/Zeaxan [Preservision Areds 2 Softgel] 1 cap PO AC-BID 07/30/22 [History] amLODIPine [Norvasc] 5 mg PO DAILY 60 Days #60 tab 08/01/22 [Rx] Famotidine [Pepcid] 20 mg PO HS 03/14/23 [History] QUEtiapine [SEROquel] 50 mg PO HS 03/14/23 [History] busPIRone HCL 15 mg PO TID 03/14/23 [History] metFORMIN HCL [Glucophage] 500 mg PO AC-BID 07/13/23 [History] Acetaminophen Tab [Tylenol] 650 mg PO Q6HR tab 07/17/23 [Rx] Cyanocobalamin [Vitamin B-12] 1,000 mcg PO DAILY tab 07/17/23 [Rx] Ibuprofen [Motrin] 600 mg PO Q8HR PRN #30 tab 07/17/23 [Rx] Lidocaine 5% Patch [Lidoderm 5% Patch] 1 patch TOPICAL DAILY patch 07/17/23 [Rx] Sennosides [Senokot] 8.6 mg PO HS tab 07/17/23 [Rx] Melatonin 5 mg PO HS tab 08/23/23 [Rx] QUEtiapine [SEROquel] 25 mg PO DAILY PRN tab 08/23/23 [Rx] Follow up Appointment(s)/Referral(s): Papi Noriega MD [Primary Care Provider] - 1-2 days Discharge Disposition: TRANSFER TO SNF/ECF
== END 2023-08-23 16:11 | DRG 57 ==
LOC: EC 15:57 → 4SSUR 20:22
PROVIDERS: ADMIT Internal Medicine; ATTEND Internal Medicine
DX: G20.A1 Parkinson's disease without dyskinesia, without mention of fluctuations (principal); E87.20 Acidosis, unspecified; F02.811 Dementia in other diseases classified elsewhere, unspecified severity, with agitation; F02.82 Dementia in other diseases classified elsewhere, unspecified severity, with psychotic disturbance; F02.83 Dementia in other diseases classified elsewhere, unspecified severity, with mood disturbance; F02.84 Dementia in other diseases classified elsewhere, unspecified severity, with anxiety; G31.83 Neurocognitive disorder with Lewy bodies; I10 Essential (primary) hypertension; E78.5 Hyperlipidemia, unspecified; E86.0 Dehydration; E89.0 Postprocedural hypothyroidism; G47.30 Sleep apnea, unspecified; I25.10 Atherosclerotic heart disease of native coronary artery without angina pectoris; R29.6 Repeated falls; R32 Unspecified urinary incontinence; S09.90XA Unspecified injury of head, initial encounter; Z79.84 Long term (current) use of oral hypoglycemic drugs; Z79.899 Other long term (current) drug therapy; Z82.49 Family history of ischemic heart disease and other diseases of the circulatory system; Z87.442 Personal history of urinary calculi; Z91.81 History of falling; Z95.1 Presence of aortocoronary bypass graft; Z96.653 Presence of artificial knee joint, bilateral; Z98.1 Arthrodesis status; Z79.890 Hormone replacement therapy; Z87.81 Personal history of (healed) traumatic fracture
CPT/HCPCS: 12001; 36415; 70450; 71045; 72125; 80053; 81003; 83036; 83605; 83735; 84484; 85025; 85610; 85730; 93005; 96360; 96361; 99285